=== PATIENT | female | born 1940 | race African-American/Black ===

== ENCOUNTER 2016-08-27 13:00 | Inpatient (IN) | payer MEDICARE, OTHER ==
[~2016-08-27] VITALS: Ht 157.5 cm; Wt 98.9 kg
[~2016-08-27 13:00] MED LIST: ADVAIR 100/501 PUFF1 INH; ALBUTEROL2.5 MG/3 M INH; COZAAR50 MG ORAL; DILTIAZEM ER180 M2 PO; HYDROCODON-ACE1 EA13 ORAL; HYDROCODON-ACE1 EA18 PO; LEVAQUIN500 MG ORAL; NITROSTAT0.4 M1 SL; NORCO 10-325 T1 EACH ORAL; OXYCODON-ACETA1 EAC2 ORAL; PREDNISONE20 MG ORAL; PRILOSEC20 MG ORAL; RESTORIL30 MG ORAL; SPIRIVA INHALE1 PUF1 INH; TENORMIN50 MG ORAL; XARELTO10 MG ORAL
[2016-08-27] MEDS ORDERED: Levalbuterol Inh UD 1.25mg/0.5ml ONE (13:06)
[2016-08-27] MEDS ORDERED: Solu-MEDROL 125mg Inj IVP ONE (13:15)
[2016-08-27] MEDS ORDERED: Levalbuterol Inh UD 1.25mg/0.5ml HHN ONE (13:15)
[2016-08-27] MEDS ORDERED: Tubing IV Secondary IV ONE (13:20)
[2016-08-27 13:31] VITALS: BP 166/71
--- NOTE | 2016-08-27 13:31 | Emergency Room Report ---
History of Present Illness General Chief Complaint: Dyspnea/Respdistress Source: Patient, Medical Record Present Illness HPI Patient presents with complaints of shortness of breath Upon arrival the patient is dyspneic can only speak in 2-3 word sentences Denies any chest pain she has however had increased cough and congestion Denies any abdominal pain Patient has been using cough syrup and inhaler at home with minimal relief Denies any fevers Denies any pleurisy Denies any recent travel Allergies: Coded Allergies: AMOXICILLIN (Verified Allergy, Mild, 03/04/13) PENICILLINS (Verified Allergy, Mild, Hives, 10/01/15) Patient History Past Medical History: see triage record Pertinent Family History: none Reviewed Nursing Documentation: PMH: Agreed, PSxH: Agreed Nursing Documentation-PMH Past Medical History: No History, Except For Hx Cardiac Problems: Yes Hx Hypertension: Yes Hx Asthma: Yes Hx COPD: Yes Hx Diabetes: Yes - [place]line Hx Cancer: No Hx Gastrointestinal Problems: No Hx Neurological Problems: No Hx Dizziness: Yes Review of Systems All Other Systems: negative except mentioned in HPI Physical Exam Vital Signs Date Time Temp Pulse Resp B/P Pulse Ox O2 Delivery O2 Flow Rate FiO2 08/27/16 13:01 98.4 113 20 166/61 100 Room Air Sp02 EP Interpretation: reviewed, normal General Appearance: moderate distress - Appears tachypneic and short of breath Head: normocephalic, atraumatic Eyes: bilateral eye EOMI, bilateral eye PERRL ENT: normal pharynx, no angioedema Neck: supple Respiratory: respiratory distress, accessory muscle use, wheezing - diffusely Cardiovascular #1: tachycardia Gastrointestinal: soft, no mass Genitourinary: no CVA tenderness Musculoskeletal: normal inspection Neurologic: alert, oriented x3 Skin: normal color, no rash Lymphatic: no adenopathy Procedures Critical Care Time Critical Care Time 50 minutes for initial critical presentation Multiple re\re evaluations Not including any procedural time Medical Decision Making Diagnostic Impression: Primary Impression: Dyspnea Additional Impression: Respiratory distress ER Course Patient is a fairly complex patient with multiple differential to consideration including but not limited to cardiac cardiopulmonary and vascular emergencies Patient required acute intervention with breathing treatment Steroids given her presentation was also given magnesium Chest x-ray does not show acute disease Patient has done significantly better with acute intervention However requiring admission for further inpatient care Labs Test 08/27/16 13:15 08/27/16 22:30 08/28/16 05:45 White Blood Count 5.7 K/UL (4.8-10.8) 3.8 K/UL (4.8-10.8) Red Blood Count 3.47 M/UL (4.20-5.40) 3.57 M/UL (4.20-5.40) Hemoglobin 10.5 G/DL (12.0-16.0) 11.1 G/DL (12.0-16.0) Hematocrit 30.8 % (37.0-47.0) 32.8 % (37.0-47.0) Mean Corpuscular Volume 89 FL (80-99) 92 FL (80-99) Mean Corpuscular Hemoglobin 30.2 PG (27.0-31.0) 31.2 PG (27.0-31.0) Mean Corpuscular Hemoglobin Concent 34.1 G/DL (32.0-36.0) 33.9 G/DL (32.0-36.0) Red Cell Distribution Width 13.6 % (11.6-14.8) 13.5 % (11.6-14.8) Platelet Count 225 K/UL (150-450) 209 K/UL (150-450) Mean Platelet Volume 10.8 FL (6.5-10.1) 9.9 FL (6.5-10.1) Neutrophils (%) (Auto) 58.1 % (45.0-75.0) % (45.0-75.0) Lymphocytes (%) (Auto) 22.3 % (20.0-45.0) % (20.0-45.0) Monocytes (%) (Auto) 9.1 % (1.0-10.0) % (1.0-10.0) Eosinophils (%) (Auto) 9.7 % (0.0-3.0) % (0.0-3.0) Basophils (%) (Auto) 0.9 % (0.0-2.0) % (0.0-2.0) Sodium Level 138 mEQ/L (135-145) Potassium Level 2.9 mEQ/L (3.4-4.9) Chloride Level 94 mEQ/L (98-107) Carbon Dioxide Level 25 mEQ/L (20-30) Anion Gap 19 (5-15) Blood Urea Nitrogen 13 mg/dL (7-23) Creatinine 1.0 mg/dL (0.5-0.9) Estimat Glomerular Filtration Rate mL/min (>60) Glucose Level 106 mg/dL (74-106) Calcium Level 8.9 mg/dL (8.6-10.2) Total Bilirubin 0.3 mg/dL (0.0-1.2) Aspartate Amino Transf (AST/SGOT) 19 U/L (5-40) Alanine Aminotransferase (ALT/SGPT) 9 U/L (3-33) Alkaline Phosphatase 66 U/L (35-104) Total Creatine Kinase 78 U/L (26-140) Creatine Kinase MB < 1.5 ng/mL (< 3.8) Creatine Kinase MB Relative Index Troponin I < 0.30 ng/mL (<=0.30) Total Protein 7.9 g/dL (6.6-8.7) Albumin 4.1 g/dL (3.5-5.2) Globulin 3.8 g/dL Albumin/Globulin Ratio 1.0 (1.0-2.7) Lipase 36 U/L (< 60) Differential Total Cells Counted 100 Neutrophils % (Manual) 80 % (45-75) Lymphocytes % (Manual) 12 % (20-45) Monocytes % (Manual) 1 % (1-10) Eosinophils % (Manual) 0 % (0-3) Basophils % (Manual) 0 % (0-2) Band Neutrophils 7 % (0-8) Platelet Estimate Adequate Platelet Morphology Normal Poikilocytosis 1+ Anisocytosis 4+ Ovalocytes 4+ Activated Partial Thromboplast Time 27 SEC (23-33) Rhythm Strip Diag. Results EP Interpretation: yes Rate: 77 Rhythm: NSR, no PVC's, no ectopy Chest X-Ray Diagnostic Results EP Interpretation: Yes Findings: no consolidation, no effusion, no pneumothorax Number of Views: 1 Last Vital Signs Date Time Temp Pulse Resp B/P Pulse Ox O2 Delivery O2 Flow Rate FiO2 08/27/16 13:10 102 18 Room Air 08/27/16 13:10 100 08/27/16 13:01 98.4 166/61 Status: improved Disposition: ADMITTED INPATIENT Condition: Serious Referrals: ROBBIN PUTNAM (PCP) ELIZABETH BYRNE D.O. Aug 27, 2016 13:31
[2016-08-27 13:35] VITALS: BP 166/71
[2016-08-27 13:57] LABS: BASOPHILS % (AUTO) 0.9 % (0.0-2.0); EOSINOPHILS % (AUTO) 9.7 % (0.0-3.0); LYMPHOCYTES % (AUTO) 22.3 % (20.0-45.0); MEAN CORPUSCULAR HEMOGLOBIN 30.2 PG (27.0-31.0); MEAN CORPUSCULAR HGB CONC 34.1 G/DL (32.0-36.0); MEAN CORPUSCULAR VOLUME 89 FL (80-99); MEAN PLATELET VOLUME 10.8 FL (6.5-10.1); MONOCYTES % (AUTO) 9.1 % (1.0-10.0); NEUTROPHILS % (AUTO) 58.1 % (45.0-75.0); PLATELET COUNT 225 K/UL (150-450); RED BLOOD COUNT 3.47 M/UL (4.20-5.40); RED CELL DISTRIBUTION WIDTH 13.6 % (11.6-14.8); WHITE BLOOD COUNT 5.7 K/UL (4.8-10.8)
[2016-08-27] MEDS ORDERED: Albuterol ud Inhalation HHN ONE (14:00)
[2016-08-27 14:06] LABS: ALANINE AMINOTRANSFERASE 9 U/L (3-33); ANION GAP 19 (5-15); ASPARTATE AMINO TRANSFERASE 19 U/L (5-40); CALCIUM 8.9 mg/dL (8.6-10.2); CARBON DIOXIDE 25 mEQ/L (20-30); CHLORIDE 94 mEQ/L (98-107); HEMOLYSIS 8; LIPASE 36 U/L (< 60); POTASSIUM 2.9 mEQ/L (3.4-4.9); SODIUM 138 mEQ/L (135-145); TOTAL PROTEIN 7.9 g/dL (6.6-8.7); TROPONIN I < 0.30 ng/mL (<=0.30)
--- NOTE | 2016-08-27 14:08 | Diagnostic Imaging Report ---
Indication: SOB Technique: One view of the chest Comparison: 11/11/2015 Findings: Lungs and pleural spaces are clear. Heart size is upper limits normal. Aorta is tortuous and calcified. There is no significant interim change Impression: No acute process
[2016-08-27 14:16] LABS: CKMB < 1.5 ng/mL (< 3.8)
[2016-08-27] MEDS ORDERED: Morphine Sulfate 4mg/ml Inj IVP ONE (14:30)
[2016-08-27] MEDS ORDERED: Nitroglycerin Subl 0.4mg tab (Bottle Of 25) SL PRN (14:45)
[2016-08-27] MEDS ORDERED: Norco 10mg/325mg tab ORAL PRN ×2 (14:45)
[2016-08-27] MEDS ORDERED: DuoNeb 0.5-3(2.5)mg/3ml neb HHN PRN (15:00)
[2016-08-27 16:00] VITALS: BP 131/65
[2016-08-27] MEDS: NovoLOG Insulin Flexpen SUBQ SCH ×2 (17:30→21:37)
[2016-08-27] MEDS: Levofloxacin 500mg tab ORAL SCH (18:21)
[2016-08-27] MEDS: Advair 100/50 Inhaler - 14 dose INH SCH (18:42)
[2016-08-27 20:00] VITALS: BP 155/67
[2016-08-27] MEDS ORDERED: Heparin 5000 units/ml inj SUBQ SCH (21:00)
--- NOTE | 2016-08-27 21:00 | Consultation ---
DATE OF CONSULTATION: CONSULTING PHYSICIAN: Marcelo Vaughan M.D. REFERRING PHYSICIAN: Amadeo Castle M.D. REASON FOR CONSULTATION: Respiratory insufficiency and shortness of breath. HISTORY OF PRESENT ILLNESS: This is a 76-year-old female who presents with dyspnea and respiratory distress. The patient is noted to have worsening shortness of breath, only able to speak two to three-word sentences. The patient denies any chest pain at this time, but has increasing cough and congestion. She denies any abdominal pain and has been using cough syrup and inhalers. The patient is seen and evaluated in the emergency room and was noted to have x-ray findings consistent with normal lungs. The patient admitted for respiratory insufficiency and acute bronchospasm, and I was called to assist and evaluate today. The patient has no fevers or chills. No pleurisy. No recent travel. No ill contracts. PAST MEDICAL HISTORY: Notable for history of heart disease, hypertension, history of asthma and COPD, and history of diabetes. MEDICATIONS: Reviewed. ALLERGIES: Reviewed. SOCIAL HISTORY: Currently does not smoke or drink. REVIEW OF SYSTEMS: All 10 points reviewed and otherwise negative. PHYSICAL EXAMINATION: GENERAL: The patient is a well-developed female, short of breath. VITAL SIGNS: Reviewed. Blood pressure 117/67, pulse of 105, respiratory rate 20, saturations 98%, and temperature 97.5. HEENT: Currently negative. Oropharynx moist. NECK: Supple. No adenopathy. LUNGS: With scattered wheezes. Scattered rhonchi. Reduced air entry. CARDIOVASCULAR: S1 and S2. Regular rate and rhythm without murmurs, rubs, or gallops. ABDOMEN: Soft and nontender. No distention. No hepatosplenomegaly. EXTREMITIES: No cyanosis or clubbing. No edema. NEUROLOGICAL: Grossly nonfocal. LABORATORY DATA: Lab data reviewed. White cell count 5.7, hemoglobin 10.5, hematocrit 30.8, and platelets of 225,000. Chemistry - sodium 128, potassium 2.9, BUN 13, creatinine 1. Liver enzymes normal. Chest x-ray negative. IMPRESSION: 1. Asthma/chronic obstructive pulmonary disease with acute exacerbation. 2. Shortness of breath. 3. Respiratory distress. 4. Acute bronchospasm. 5. Possibly mild acute bronchitis. 6. Chronic pain syndrome. 7. History of heart disease. RECOMMENDATION: Management as outlined. Cardiac management as outlined. Albuterol as needed. Levaquin empirically. IV Solu-Medrol, and follow clinically for further changes and interventions and ongoing recommendation. The patient appears to be slightly improved overall from baseline and I will follow and assist with discharge needs. Marcelo Vaughan M.D. DR: MY JOB#: [id number] CC:
[2016-08-27 21:20] VITALS: BP 124/67
[2016-08-27] MEDS: Solu-MEDROL 125mg Inj IVP SCH (21:38)
[2016-08-27] MEDS ORDERED: Heparin 5000 units/ml inj IV ONE ×2 (22:00→23:45)
[2016-08-27 23:00] LABS: MEAN CORPUSCULAR HEMOGLOBIN 31.2 PG (27.0-31.0); MEAN CORPUSCULAR HGB CONC 33.9 G/DL (32.0-36.0); MEAN CORPUSCULAR VOLUME 92 FL (80-99); MEAN PLATELET VOLUME 9.9 FL (6.5-10.1); PLATELET COUNT 209 K/UL (150-450); RED BLOOD COUNT 3.57 M/UL (4.20-5.40); RED CELL DISTRIBUTION WIDTH 13.5 % (11.6-14.8); WHITE BLOOD COUNT 3.8 K/UL (4.8-10.8)
--- NOTE | 2016-08-27 23:15 | History and Physical Report ---
DATE OF ADMISSION: 08/27/2016 CHIEF COMPLAINT: Asthma exacerbation. HISTORY OF PRESENT ILLNESS: The patient is a very pleasant 76-year-old female. She has history of hypertension, history of DVT, degenerative disk disease status post knee replacement, chronic lower back pain. She presented from home with complaints of shortness of breath. The patient recently had worsening congestion and "flu-like" symptoms. Yesterday she was ordered oral antibiotics as well as cough medication but she had worsening shortness of breath she presented to the emergency room where she was noted to have diffuse wheezing and shortness of breath. She was given a dose of intravenous steroids as well as antibiotics and breathing treatments. She had only minimal improvement therefore she is admitted for further evaluation and care. PAST MEDICAL HISTORY: As above. PAST SURGICAL HISTORY: Includes knee replacement surgery. CURRENT MEDICATIONS: Reconciled and reviewed. ALLERGIES: Include amoxicillin and penicillin. FAMILY HISTORY: Noncontributory. SOCIAL HISTORY: There is no known history of tobacco, ethanol, or drugs. REVIEW OF SYSTEMS: General: Positive fevers, chills, and night sweats. HEENT: No headaches or visual changes. Cardiopulmonary: Positive for chest pain or shortness of breath and tightness. Positive wheezing. Gastrointestinal: No nausea, vomiting. Genitourinary: No urgency or frequency. Musculoskeletal: No joint pain or swelling. Neurologic: No evidence of seizures. PHYSICAL EXAMINATION: VITAL SIGNS: Temperature 98 degrees, pulse 101, respirations 20, O2 saturation 96% on two liters nasal cannula. GENERAL: The patient is well-developed female in no apparent distress. She is able to speak in full sentences but is dyspneic and audibly wheezing. NECK: Supple. There is no jugular venous distention. HEART: Regular rate and rhythm. LUNGS: Significant for diffuse wheezes. ABDOMEN: Soft, nontender, and nondistended. EXTREMITIES: No clubbing, cyanosis, or edema. LABORATORY AND DIAGNOSTIC DATA: White count 6, hemoglobin 10, hematocrit 30, platelets of 225,000. Potassium is 2.9, and creatinine was 1. Chest x-ray was clear. ASSESSMENT: This is a pleasant female admitted with an asthma exacerbation. 1. Asthma exacerbation. 2. Bronchitis. 3. Hypertension. 4. Obesity. 5. History of knee replacement. PLAN: IV steroids. Respiratory treatments around the clock. Cardiology and Pulmonary consultations. Empiric antibiotic therapy for bronchitis. DVT and stress ulcer prophylaxis. Amadeo Castle M.D. DR: Jimenez JOB#: [id number] CC:
[2016-08-27] MEDS ORDERED: Heparin 25,000u/D5W 500ml 500 ML IV SCH (23:45)
[2016-08-28] VITALS (7 sets, daily range): BP systolic 135–174; BP diastolic 65–101
[2016-08-28 00:15] LABS: BAND NEUTROPHILS % (MANUAL) 7 % (0-8); BASOPHILS % (MANUAL) 0 % (0-2); EOSINOPHILS % (MANUAL) 0 % (0-3); LYMPHOCYTES % (MANUAL) 12 % (20-45); NEUTROPHILS % (MANUAL) 80 % (45-75); PLATELET ESTIMATE ADEQUATE; TOTAL CELLS COUNTED 100
[2016-08-28 00:16] LABS: ANISOCYTOSIS 4+; OVALOCYTES 4+; PLATELET MORPHOLOGY NORMAL; POIKILOCYTOSIS 1+
[2016-08-28] MEDS: Solu-MEDROL 125mg Inj IVP SCH ×3 (06:20→21:09)
[2016-08-28] MEDS: NovoLOG Insulin Flexpen SUBQ SCH ×4 (06:28→21:14)
--- NOTE | 2016-08-28 06:53 | General Progress Note ---
Assessment/Plan Problem List: (1) Shortness of breath ICD Codes: R06.02 - Shortness of breath SNOMED: 425831136 (2) Wheezing ICD Codes: R06.2 - Wheezing SNOMED: 61108138 (3) Acute bronchitis ICD Codes: J20.9 - Acute bronchitis SNOMED: 07859926 (4) Obesity ICD Codes: E66.9 - Obesity SNOMED: 646465045 (5) Chest pain (6) Hypertension ICD Codes: I10 - Essential (primary) hypertension SNOMED: 82490638 Status: stable, progressing Assessment/Plan cont resp rx atc iv steroids abx pain rx bp rx heparin drip rate control with cardizem Subjective ROS Limited/Unobtainable: No Constitutional: Reports: malaise, weakness HEENT: Reports: no symptoms Cardiovascular: Reports: no symptoms Respiratory: Reports: cough, shortness of breath, wheezing Gastrointestinal/Abdominal: Reports: no symptoms Genitourinary: Reports: no symptoms Neurologic/Psychiatric: Reports: no symptoms Endocrine: Reports: no symptoms Hematologic/Lymphatic: Reports: no symptoms Allergies: Coded Allergies: AMOXICILLIN (Verified Allergy, Mild, 03/04/13) PENICILLINS (Verified Allergy, Mild, Hives, 10/01/15) All Systems: reviewed and negative except above Subjective wheezing worse this am. no chest pain c/o back pain. Objective Last 24 Hour Vital Signs Date Time Temp Pulse Resp B/P Pulse Ox O2 Delivery O2 Flow Rate FiO2 08/28/16 06:22 137/83 08/28/16 04:00 93 08/28/16 04:00 97.5 80 17 174/101 98 Nasal Cannula 2.0 08/28/16 00:11 102 20 99 Nasal Cannula 2.0 28 08/28/16 00:03 109 20 98 Nasal Cannula 2.0 28 08/28/16 00:00 97.7 101 17 156/90 98 Nasal Cannula 2.0 08/28/16 00:00 92 08/27/16 21:20 117 124/67 08/27/16 20:00 97.0 118 21 155/67 99 Room Air 08/27/16 20:00 123 08/27/16 18:42 102 18 97 Nasal Cannula 2.0 28 08/27/16 18:41 102 18 97 Nasal Cannula 2.0 28 08/27/16 18:40 Nasal Cannula 2.0 28 08/27/16 18:40 97 Nasal Cannula 2.0 28 08/27/16 16:00 97.9 101 20 131/65 96 Room Air 08/27/16 15:15 98 20 Room Air 08/27/16 15:12 105 20 117/67 98 Room Air 08/27/16 15:05 106 24 Room Air 08/27/16 14:30 Room Air 08/27/16 14:16 101 20 100 Room Air 08/27/16 14:05 100 18 100 Room Air 08/27/16 13:35 100 24 Simple Mask 8.0 08/27/16 13:35 97.5 100 24 166/71 100 Simple Mask 8.0 08/27/16 13:25 94 20 100 Room Air 08/27/16 13:20 99 26 Room Air 99 08/27/16 13:10 102 18 Room Air 08/27/16 13:10 102 18 100 Room Air 08/27/16 13:01 98.4 113 20 166/61 100 Room Air Intake and Output 08/27/16 08/28/16 19:00 07:00 Intake Total 540 ml 283.292 ml Balance 540 ml 283.292 ml Intake Oral 440 ml 120 ml IV Total 100 ml 163.292 ml # Voids 1 1 Laboratory Tests 08/27/16 13:15: White Blood Count 5.7, Red Blood Count 3.47L, Hemoglobin 10.5L, Hematocrit 30.8L , Mean Corpuscular Volume 89, Mean Corpuscular Hemoglobin 30.2, Mean Corpuscular Hemoglobin Concent 34.1, Red Cell Distribution Width 13.6, Platelet Count 225, Mean Platelet Volume 10.8H, Neutrophils (%) (Auto) 58.1, Lymphocytes (%) (Auto) 22.3, Monocytes (%) (Auto) 9.1, Eosinophils (%) (Auto) 9.7H, Basophils (%) (Auto) 0.9, Sodium Level 138, Potassium Level 2.9L, Chloride Level 94L, Carbon Dioxide Level 25, Anion Gap 19H, Blood Urea Nitrogen 13, Creatinine 1.0H, Estimat Glomerular Filtration Rate , Glucose Level 106, Calcium Level 8.9, Total Bilirubin 0.3, Aspartate Amino Transf (AST/SGOT) 19, Alanine Aminotransferase (ALT/SGPT) 9, Alkaline Phosphatase 66, Total Creatine Kinase 78, Creatine Kinase MB < 1.5, Creatine Kinase MB Relative Index , Troponin I < 0.30, Total Protein 7.9, Albumin 4.1, Globulin 3.8, Albumin/ Globulin Ratio 1.0, Lipase 36 08/27/16 22:30: White Blood Count 3.8L, Red Blood Count 3.57L, Hemoglobin 11.1L, Hematocrit 32.8L, Mean Corpuscular Volume 92, Mean Corpuscular Hemoglobin 31.2H, Mean Corpuscular Hemoglobin Concent 33.9, Red Cell Distribution Width 13.5, Platelet Count 209, Mean Platelet Volume 9.9, Neutrophils (%) (Auto) , Lymphocytes (%) ( Auto) , Monocytes (%) (Auto) , Eosinophils (%) (Auto) , Basophils (%) (Auto) , Differential Total Cells Counted 100, Neutrophils % (Manual) 80H, Lymphocytes % (Manual) 12L, Monocytes % (Manual) 1, Eosinophils % (Manual) 0, Basophils % ( Manual) 0, Band Neutrophils 7, Platelet Estimate Adequate, Platelet Morphology Normal, Poikilocytosis 1+, Anisocytosis 4+, Ovalocytes 4+, Activated Partial Thromboplast Time 27 08/28/16 05:45: Activated Partial Thromboplast Time [Pending] Height (Feet): 5 Height (Inches): 2.00 Weight (Pounds): 250 General Appearance: WD/WN, alert Neck: supple Cardiovascular: normal rate, regular rhythm Respiratory/Chest: rhonchi - bilaterally, expiratory wheezing Abdomen: normal bowel sounds, non tender, soft, no organomegaly Edema: no edema noted Arm (L), no edema noted Arm (R), no edema noted Leg (L), no edema noted Leg (R), no edema noted Pedal (L), no edema noted Pedal (R), no edema noted Generalized Neurologic: carbonizer II-XII grossly normal, alert, oriented x 3, responsive CAROLYN FOY Aug 28, 2016 06:53
[2016-08-28] MEDS: DuoNeb 0.5-3(2.5)mg/3ml neb HHN SCH ×5 (08:13→23:14)
[2016-08-28] MEDS: Diltiazem CD 120mg cap ORAL SCH (08:16)
[2016-08-28] MEDS: Advair 100/50 Inhaler - 14 dose INH SCH ×2 (08:43→19:23)
--- NOTE | 2016-08-28 08:54 | Pulmonology Progress Note ---
Assessment/Plan Assessment/Plan IMPRESSION: 1. Asthma/chronic obstructive pulmonary disease with acute exacerbation. 2. Shortness of breath. 3. Respiratory distress. 4. Acute bronchospasm. 5. Possibly mild acute bronchitis. 6. Chronic pain syndrome. 7. History of heart disease. PLAN continue same taper meds in am neb therapy oxygen therapy monitor for change antibiotics empiric impression, plan, and exam edited and reviewed in detail care discussed with RN Subjective Allergies: Coded Allergies: AMOXICILLIN (Verified Allergy, Mild, 03/04/13) PENICILLINS (Verified Allergy, Mild, Hives, 10/01/15) Subjective overnight events noted on oxygen improved Objective Last 24 Hour Vital Signs Date Time Temp Pulse Resp B/P Pulse Ox O2 Delivery O2 Flow Rate FiO2 08/28/16 08:42 94 20 100 Nasal Cannula 2.0 08/28/16 08:40 94 20 100 Nasal Cannula 2.0 08/28/16 08:16 81 149/86 08/28/16 08:00 97.5 81 19 149/86 98 Nasal Cannula 2.0 08/28/16 06:48 100 Nasal Cannula 2.0 08/28/16 06:48 Nasal Cannula 2.0 08/28/16 06:00 137/83 08/28/16 04:00 93 08/28/16 04:00 97.5 80 17 174/101 98 Nasal Cannula 2.0 08/28/16 00:11 102 20 99 Nasal Cannula 2.0 28 08/28/16 00:03 109 20 98 Nasal Cannula 2.0 28 08/28/16 00:00 97.7 101 17 156/90 98 Nasal Cannula 2.0 08/28/16 00:00 92 08/27/16 21:20 117 124/67 08/27/16 20:00 97.0 118 21 155/67 99 Room Air 08/27/16 20:00 123 08/27/16 18:42 102 18 97 Nasal Cannula 2.0 28 08/27/16 18:41 102 18 97 Nasal Cannula 2.0 28 08/27/16 18:40 Nasal Cannula 2.0 28 08/27/16 18:40 97 Nasal Cannula 2.0 28 08/27/16 16:00 97.9 101 20 131/65 96 Room Air 08/27/16 15:15 98 20 Room Air 08/27/16 15:12 105 20 117/67 98 Room Air 08/27/16 15:05 106 24 Room Air 08/27/16 14:30 Room Air 08/27/16 14:16 101 20 100 Room Air 08/27/16 14:05 100 18 100 Room Air 08/27/16 13:35 100 24 Simple Mask 8.0 08/27/16 13:35 97.5 100 24 166/71 100 Simple Mask 8.0 08/27/16 13:25 94 20 100 Room Air 08/27/16 13:20 99 26 Room Air 99 08/27/16 13:10 102 18 Room Air 08/27/16 13:10 102 18 100 Room Air 08/27/16 13:01 98.4 113 20 166/61 100 Room Air Intake and Output 08/27/16 08/28/16 19:00 07:00 Intake Total 540 ml 405.761 ml Balance 540 ml 405.761 ml Intake Oral 440 ml 120 ml IV Total 100 ml 285.761 ml # Voids 1 1 Objective GENERAL: The patient is a well-developed female, NAD. HEENT: Currently negative. Oropharynx moist. NECK: Supple. No adenopathy. LUNGS: With some wheezes. Scattered rhonchi. Reduced air entry. CARDIOVASCULAR: S1 and S2. Regular rate and rhythm without murmurs, rubs, or gallops. ABDOMEN: Soft and nontender. No distention. No hepatosplenomegaly. EXTREMITIES: No cyanosis or clubbing. No edema. NEUROLOGICAL: Grossly nonfocal. Laboratory Tests 08/27/16 13:15: White Blood Count 5.7, Red Blood Count 3.47L, Hemoglobin 10.5L, Hematocrit 30.8L , Mean Corpuscular Volume 89, Mean Corpuscular Hemoglobin 30.2, Mean Corpuscular Hemoglobin Concent 34.1, Red Cell Distribution Width 13.6, Platelet Count 225, Mean Platelet Volume 10.8H, Neutrophils (%) (Auto) 58.1, Lymphocytes (%) (Auto) 22.3, Monocytes (%) (Auto) 9.1, Eosinophils (%) (Auto) 9.7H, Basophils (%) (Auto) 0.9, Sodium Level 138, Potassium Level 2.9L, Chloride Level 94L, Carbon Dioxide Level 25, Anion Gap 19H, Blood Urea Nitrogen 13, Creatinine 1.0H, Estimat Glomerular Filtration Rate , Glucose Level 106, Calcium Level 8.9, Total Bilirubin 0.3, Aspartate Amino Transf (AST/SGOT) 19, Alanine Aminotransferase (ALT/SGPT) 9, Alkaline Phosphatase 66, Total Creatine Kinase 78, Creatine Kinase MB < 1.5, Creatine Kinase MB Relative Index , Troponin I < 0.30, Total Protein 7.9, Albumin 4.1, Globulin 3.8, Albumin/ Globulin Ratio 1.0, Lipase 36 08/27/16 22:30: White Blood Count 3.8L, Red Blood Count 3.57L, Hemoglobin 11.1L, Hematocrit 32.8L, Mean Corpuscular Volume 92, Mean Corpuscular Hemoglobin 31.2H, Mean Corpuscular Hemoglobin Concent 33.9, Red Cell Distribution Width 13.5, Platelet Count 209, Mean Platelet Volume 9.9, Neutrophils (%) (Auto) , Lymphocytes (%) ( Auto) , Monocytes (%) (Auto) , Eosinophils (%) (Auto) , Basophils (%) (Auto) , Differential Total Cells Counted 100, Neutrophils % (Manual) 80H, Lymphocytes % (Manual) 12L, Monocytes % (Manual) 1, Eosinophils % (Manual) 0, Basophils % ( Manual) 0, Band Neutrophils 7, Platelet Estimate Adequate, Platelet Morphology Normal, Poikilocytosis 1+, Anisocytosis 4+, Ovalocytes 4+, Activated Partial Thromboplast Time 27 Current Medications Medications (Trade) Dose Ordered Sig/Arnoldo Route PRN Reason Start Time Stop Time Status Last Admin Dose Admin Acetaminophen/ Hydrocodone Bitart ([place] 10/325) 1 ea Q8H PRN ORAL For Pain Level <=5 08/27/16 14:45 09/03/16 14:44 Albuterol/ Ipratropium (DuoNeb 0.5-3(2.5)mg/3ml) 3 ml Q4HRT HHN 08/28/16 07:00 09/02/16 06:59 Clonidine HCl (Catapres) 0.1 mg Q4H PRN ORAL For High Blood Pressure 08/28/16 05:45 09/27/16 05:44 Dextrose STAT PRN IV Hypoglycemia 08/27/16 16:30 09/26/16 16:29 Diltiazem HCl (Cardizem CD) 120 mg DAILY ORAL 08/28/16 09:00 09/27/16 08:59 08/28/16 08:16 Heparin Sodium/ Dextrose (Heparin) 500 ml @ 40.823 mls/ hr adjust per protocol IV 08/27/16 23:45 09/26/16 23:44 08/27/16 23:49 Insulin Aspart (NovoLOG) BEFORE MEALS AND HS SUBQ 08/27/16 17:30 09/26/16 17:29 08/28/16 06:28 Levofloxacin (Levaquin) 500 mg Q24H ORAL 08/27/16 18:00 09/03/16 17:59 08/27/16 18:21 Methylprednisolone Sodium Succinate (Solu-MEDROL) 60 mg EVERY 12 HOURS IVP 08/28/16 18:00 09/27/16 17:59 Nitroglycerin (Ntg) 0.4 mg Q5M PRN SL Prn Chest Pain 08/27/16 14:45 09/26/16 14:44 Oxycodone/ Acetaminophen (Percocet 10/325) 1 tab Q4H PRN ORAL Severe Pain (Pain Scale 6-10) 08/27/16 14:45 09/03/16 14:44 08/28/16 05:36 Pantoprazole (Protonix) 40 mg DAILY ORAL 08/28/16 09:00 09/27/16 08:59 08/28/16 08:15 Salmeterol Xinafoate/ Fluticasone (Advair 100/50 Diskus) 1 puffs BID INH 08/27/16 18:00 09/26/16 17:59 08/28/16 08:43 Temazepam (Restoril) 30 mg HSPRN PRN ORAL Insomnia 08/27/16 14:45 09/03/16 14:44 Tiotropium [place] (Spiriva Inhaler) 1 puff DAILY INH 08/27/16 18:00 09/26/16 17:59 08/28/16 08:45 WALDEMAR SERRANO Aug 28, 2016 08:54
[2016-08-28] MEDS ORDERED: Heparin 25,000u/D5W 500ml 500 ML IV SCH (11:15)
[2016-08-28] MEDS ORDERED: HEPARIN IV SCH (17:30)
[2016-08-28] MEDS ORDERED: D5W IV SCH (17:30)
[2016-08-28] MEDS: Levofloxacin 500mg tab ORAL SCH (18:00)
[2016-08-29] VITALS (7 sets, daily range): BP systolic 131–150; BP diastolic 69–90
[2016-08-29] MEDS: D5W IV SCH ×2 (01:41→06:58)
[2016-08-29] MEDS: HEPARIN IV SCH ×2 (01:41→06:58)
[2016-08-29] MEDS: DuoNeb 0.5-3(2.5)mg/3ml neb HHN SCH ×7 (03:09→23:10)
[2016-08-29] MEDS: NovoLOG Insulin Flexpen SUBQ SCH ×4 (06:19→20:42)
--- NOTE | 2016-08-29 08:04 | General Progress Note ---
Assessment/Plan Problem List: (1) Shortness of breath ICD Codes: R06.02 - Shortness of breath SNOMED: 026005787 (2) Wheezing ICD Codes: R06.2 - Wheezing SNOMED: 80035328 (3) Acute bronchitis ICD Codes: J20.9 - Acute bronchitis SNOMED: 07157740 (4) Obesity ICD Codes: E66.9 - Obesity SNOMED: 309937005 (5) Chest pain (6) Hypertension ICD Codes: I10 - Essential (primary) hypertension SNOMED: 39733745 Status: stable, progressing Assessment/Plan cont resp rx atc iv steroids daily abx pain rx bp rx heparin drip- dc. xarelto 20 qd rate control with cardizem Subjective ROS Limited/Unobtainable: No Constitutional: Reports: weakness HEENT: Reports: no symptoms Cardiovascular: Reports: no symptoms Respiratory: Reports: cough, shortness of breath Gastrointestinal/Abdominal: Reports: no symptoms Genitourinary: Reports: no symptoms Neurologic/Psychiatric: Reports: no symptoms Endocrine: Reports: no symptoms Hematologic/Lymphatic: Reports: no symptoms Allergies: Coded Allergies: AMOXICILLIN (Verified Allergy, Mild, 03/04/13) PENICILLINS (Verified Allergy, Mild, Hives, 10/01/15) All Systems: reviewed and negative except above Subjective decrease wheezing. still with sob. no chest pain no fevers or chills. no headaches. c/o chronic knee and back pain sinus for more than 24 hrs Objective Last 24 Hour Vital Signs Date Time Temp Pulse Resp B/P Pulse Ox O2 Delivery O2 Flow Rate FiO2 08/29/16 07:49 97.2 101 18 150/72 100 Nasal Cannula 2.0 08/29/16 04:00 103 08/29/16 04:00 97.0 108 20 149/90 100 Nasal Cannula 2.0 08/29/16 03:21 95 18 99 Nasal Cannula 2.0 28 08/29/16 03:10 85 18 99 Nasal Cannula 2.0 28 08/29/16 00:28 97.3 100 24 131/71 98 Room Air 08/29/16 00:00 100 08/28/16 23:23 93 20 99 Nasal Cannula 2.0 28 08/28/16 23:15 91 20 100 Nasal Cannula 2.0 28 08/28/16 20:00 97.5 95 20 135/65 99 Room Air 08/28/16 19:32 92 20 99 Nasal Cannula 2.0 28 08/28/16 19:26 91 20 100 Nasal Cannula 2.0 28 08/28/16 19:25 91 20 100 Nasal Cannula 2.0 28 08/28/16 19:24 91 20 100 Nasal Cannula 2.0 28 08/28/16 19:23 100 Nasal Cannula 2.0 28 08/28/16 19:23 Nasal Cannula 2.0 28 08/28/16 19:10 90 08/28/16 16:00 98.1 107 18 141/83 99 Nasal Cannula 2.0 08/28/16 16:00 119 08/28/16 15:24 93 18 99 Nasal Cannula 2.0 08/28/16 15:17 87 16 99 Nasal Cannula 2.0 08/28/16 12:00 104 08/28/16 11:59 98.1 98 19 143/73 99 Nasal Cannula 2.0 08/28/16 10:26 99 20 100 Nasal Cannula 2.0 08/28/16 10:16 97 20 97 Nasal Cannula 2.0 08/28/16 08:42 94 20 100 Nasal Cannula 2.0 08/28/16 08:40 94 20 100 Nasal Cannula 2.0 08/28/16 08:16 81 149/86 Intake and Output 08/28/16 08/29/16 19:00 07:00 Intake Total 1036.727 ml 280.959 ml Balance 1036.727 ml 280.959 ml Intake Oral 680 ml IV Total 356.727 ml 280.959 ml # Voids 1 Laboratory Tests 08/28/16 09:00: Activated Partial Thromboplast Time 131H 08/28/16 16:30: Activated Partial Thromboplast Time 99H 08/29/16 00:30: Activated Partial Thromboplast Time 107H 08/29/16 07:30: Activated Partial Thromboplast Time [Pending] Height (Feet): 5 Height (Inches): 2.00 Weight (Pounds): 218 General Appearance: WD/WN, alert Neck: supple Cardiovascular: regular rhythm Respiratory/Chest: expiratory wheezing Abdomen: normal bowel sounds, non tender, soft, no organomegaly Edema: no edema noted Arm (L), no edema noted Arm (R), no edema noted Leg (L), no edema noted Leg (R), no edema noted Pedal (L), no edema noted Pedal (R), no edema noted Generalized Neurologic: wheel aligner II-XII grossly normal, no motor/sensory deficits, alert, oriented x 3 Skin: normal pigmentation CAROLYN FOY Aug 29, 2016 08:04
[2016-08-29] MEDS ORDERED: Xarelto 10mg tab ORAL SCH ×2 (09:00→16:30)
[2016-08-29] MEDS: Advair 100/50 Inhaler - 14 dose INH SCH ×2 (09:17→19:00)
[2016-08-29] MEDS: Solu-MEDROL 125mg Inj IVP SCH (09:28)
[2016-08-29] MEDS: Diltiazem CD 120mg cap ORAL SCH (09:31)
[2016-08-29] MEDS: guaiFENesin w/Codeine 5ml Liq ud ORAL PRN ×2 (09:48→21:48)
--- NOTE | 2016-08-29 10:12 | Pulmonology Progress Note ---
Assessment/Plan Assessment/Plan IMPRESSION: 1. Asthma/chronic obstructive pulmonary disease with acute exacerbation. 2. Shortness of breath. 3. Respiratory distress. 4. Acute bronchospasm. 5. Possibly mild acute bronchitis. 6. Chronic pain syndrome. 7. History of heart disease. PLAN continue same taper meds neb therapy oxygen therapy monitor for change antibiotics empiric for now impression, plan, and exam edited and reviewed in detail care discussed with RN Subjective Allergies: Coded Allergies: AMOXICILLIN (Verified Allergy, Mild, 03/04/13) PENICILLINS (Verified Allergy, Mild, Hives, 10/01/15) Subjective overnight events noted on oxygen and stable improved Objective Last 24 Hour Vital Signs Date Time Temp Pulse Resp B/P Pulse Ox O2 Delivery O2 Flow Rate FiO2 08/29/16 09:31 104 150/72 08/29/16 07:49 97.2 101 18 150/72 100 Nasal Cannula 2.0 08/29/16 07:05 102 18 100 Nasal Cannula 2.0 28 08/29/16 07:05 100 20 100 Nasal Cannula 2.0 28 08/29/16 07:00 100 18 100 Nasal Cannula 2.0 28 08/29/16 07:00 100 Nasal Cannula 2.0 28 08/29/16 07:00 101 18 99 Nasal Cannula 2.0 28 08/29/16 07:00 Nasal Cannula 2.0 28 08/29/16 04:00 103 08/29/16 04:00 97.0 108 20 149/90 100 Nasal Cannula 2.0 08/29/16 03:21 95 18 99 Nasal Cannula 2.0 08/29/16 03:10 85 18 99 Nasal Cannula 2.0 08/29/16 00:28 97.3 100 24 131/71 98 Room Air 08/29/16 00:00 100 08/28/16 23:23 93 20 99 Nasal Cannula 2.0 28 08/28/16 23:15 91 20 100 Nasal Cannula 2.0 28 08/28/16 20:00 97.5 95 20 135/65 99 Room Air 08/28/16 19:32 92 20 99 Nasal Cannula 2.0 28 08/28/16 19:26 91 20 100 Nasal Cannula 2.0 28 08/28/16 19:25 91 20 100 Nasal Cannula 2.0 28 08/28/16 19:24 91 20 100 Nasal Cannula 2.0 28 08/28/16 19:23 100 Nasal Cannula 2.0 28 08/28/16 19:23 Nasal Cannula 2.0 28 08/28/16 19:10 90 08/28/16 16:00 98.1 107 18 141/83 99 Nasal Cannula 2.0 08/28/16 16:00 119 08/28/16 15:24 93 18 99 Nasal Cannula 2.0 08/28/16 15:17 87 16 99 Nasal Cannula 2.0 28 08/28/16 12:00 104 08/28/16 11:59 98.1 98 19 143/73 99 Nasal Cannula 2.0 08/28/16 10:26 99 20 100 Nasal Cannula 2.0 08/28/16 10:16 97 20 97 Nasal Cannula 2.0 Intake and Output 08/28/16 08/29/16 19:00 07:00 Intake Total 1036.727 ml 280.959 ml Balance 1036.727 ml 280.959 ml Intake Oral 680 ml IV Total 356.727 ml 280.959 ml # Voids 1 Objective GENERAL: The patient is a well-developed female, NAD. HEENT: Currently negative. Oropharynx moist. NECK: Supple. No adenopathy. LUNGS: With some wheezes. some rhonchi. Reduced air entry. CARDIOVASCULAR: S1 and S2. Regular rate and rhythm without murmurs, rubs, or gallops. ABDOMEN: Soft and nontender. No distention. No hepatosplenomegaly. EXTREMITIES: No cyanosis or clubbing. No edema. NEUROLOGICAL: Grossly nonfocal. Microbiology Date/Time Source Procedure Growth Status 08/27/16 13:45 Blood Blood Culture - Preliminary NO GROWTH AFTER 24 HOURS Resulted 08/27/16 13:30 Blood Blood Culture - Preliminary NO GROWTH AFTER 24 HOURS Resulted Laboratory Tests 08/28/16 16:30: Activated Partial Thromboplast Time 99H 08/29/16 00:30: Activated Partial Thromboplast Time 107H 08/29/16 07:30: Activated Partial Thromboplast Time 70H 08/29/16 09:15: Sodium Level [Pending], Potassium Level [Pending], Chloride Level [Pending], Carbon Dioxide Level [Pending], Blood Urea Nitrogen [Pending], Creatinine [ Pending], Estimat Glomerular Filtration Rate [Pending], Glucose Level [Pending] , Calcium Level [Pending] Current Medications Medications (Trade) Dose Ordered Sig/Arnoldo Route PRN Reason Start Time Stop Time Status Last Admin Dose Admin Acetaminophen/ Hydrocodone Bitart ([place] 10/325) 1 ea Q8H PRN ORAL For Pain Level <=5 08/27/16 14:45 09/03/16 14:44 Albuterol/ Ipratropium (DuoNeb 0.5-3(2.5)mg/3ml) 3 ml Q4HRT HHN 08/28/16 07:00 09/02/16 06:59 08/29/16 07:04 Clonidine HCl (Catapres) 0.1 mg Q4H PRN ORAL For High Blood Pressure 08/28/16 05:45 09/27/16 05:44 Dextrose (Dextrose 50%) STAT PRN IV Hypoglycemia 08/27/16 16:30 09/26/16 16:29 Diltiazem HCl (Cardizem CD) 120 mg DAILY ORAL 08/28/16 09:00 09/27/16 08:59 08/29/16 09:31 Guaifenesin/ Codeine Phosphate (Robitussin with codeine) 5 ml Q6H PRN ORAL For Cough 08/29/16 08:00 09/28/16 07:59 08/29/16 09:48 Insulin Aspart (NovoLOG) BEFORE MEALS AND HS SUBQ 08/27/16 17:30 09/26/16 17:29 08/29/16 06:19 Levofloxacin (Levaquin) 500 mg Q24H ORAL 08/27/16 18:00 09/03/16 17:59 08/28/16 18:00 Methylprednisolone Sodium Succinate (Solu-MEDROL) 60 mg DAILY IVP 08/29/16 09:00 09/28/16 08:59 08/29/16 09:28 Nitroglycerin (Ntg) 0.4 mg Q5M PRN SL Prn Chest Pain 08/27/16 14:45 09/26/16 14:44 Oxycodone/ Acetaminophen (Percocet 10/325) 1 tab Q4H PRN ORAL Severe Pain (Pain Scale 6-10) 08/27/16 14:45 09/03/16 14:44 08/28/16 16:28 Pantoprazole (Protonix) 40 mg DAILY ORAL 08/28/16 09:00 09/27/16 08:59 08/29/16 09:26 Rivaroxaban (Xarelto) 15 mg QPM ORAL 08/29/16 16:30 09/28/16 16:29 Salmeterol Xinafoate/ Fluticasone (Advair 100/50 Diskus) 1 puffs BID INH 08/27/16 18:00 09/26/16 17:59 08/29/16 09:17 Temazepam (Restoril) 30 mg HSPRN PRN ORAL Insomnia 08/27/16 14:45 09/03/16 14:44 Tiotropium [place] (Spiriva Inhaler) 1 puff DAILY INH 08/27/16 18:00 09/26/16 17:59 08/29/16 09:18 WALDEMAR SERRANO Aug 29, 2016 10:12
[2016-08-29 10:24] LABS: ANION GAP 23 (5-15); CALCIUM 9.3 mg/dL (8.6-10.2); CARBON DIOXIDE 19 mEQ/L (20-30); CHLORIDE 91 mEQ/L (98-107); HEMOLYSIS 17; POTASSIUM 3.6 mEQ/L (3.4-4.9); SODIUM 133 mEQ/L (135-145)
[2016-08-29] MEDS ORDERED: Xarelto 15mg tab ORAL SCH (16:30)
[2016-08-29] MEDS: Levofloxacin 500mg tab ORAL SCH (17:58)
[2016-08-30] VITALS: BP 148/78
--- NOTE | 2016-08-30 01:10 | Cardiology Report ---
APPROVED REPORT EKG Measurement Heart [id number] AR [id number] [id number] Sinus rhythm with premature atrial complexes Left axis deviation Abnormal ECG
[2016-08-30 02:06] VITALS: BP 148/78
[2016-08-30] MEDS: DuoNeb 0.5-3(2.5)mg/3ml neb HHN SCH ×2 (03:10→07:48)
[2016-08-30 04:00] VITALS: BP 144/88
[2016-08-30] MEDS: NovoLOG Insulin Flexpen SUBQ SCH (06:29)
[2016-08-30 08:10] VITALS: BP 152/90
[2016-08-30] MEDS: guaiFENesin w/Codeine 5ml Liq ud ORAL PRN (08:37)
[2016-08-30 08:38] VITALS: BP 152/90
[2016-08-30] MEDS: Diltiazem CD 120mg cap ORAL SCH (08:38)
[2016-08-30] MEDS: Solu-MEDROL 125mg Inj IVP SCH (08:38)
--- NOTE | 2016-08-30 08:52 | Pulmonology Progress Note ---
Assessment/Plan Assessment/Plan IMPRESSION: 1. Asthma/chronic obstructive pulmonary disease with acute exacerbation. 2. Shortness of breath. 3. Respiratory distress. 4. Acute bronchospasm. 5. Possibly mild acute bronchitis. 6. Chronic pain syndrome. 7. History of heart disease. PLAN dc solumedrol po prednisone neb therapy oxygen therapy monitor for change antibiotics likely can dc dc planning impression, plan, and exam edited and reviewed in detail care discussed with RN Subjective Allergies: Coded Allergies: AMOXICILLIN (Verified Allergy, Mild, 03/04/13) PENICILLINS (Verified Allergy, Mild, Hives, 10/01/15) Subjective overnight events noted on oxygen and stable improved and wants to go home Objective Last 24 Hour Vital Signs Date Time Temp Pulse Resp B/P Pulse Ox O2 Delivery O2 Flow Rate FiO2 08/30/16 08:38 77 152/90 08/30/16 08:10 97.3 77 22 152/90 100 Nasal Cannula 4.0 08/30/16 07:53 90 20 99 Nasal Cannula 3.0 32 08/30/16 07:50 32 08/30/16 07:49 85 20 97 Nasal Cannula 3.0 32 08/30/16 07:49 Nasal Cannula 3.0 32 08/30/16 07:48 97 Nasal Cannula 3.0 32 08/30/16 04:00 82 08/30/16 04:00 97.6 95 18 144/88 99 Nasal Cannula 3.0 32 08/30/16 03:15 85 18 99 Nasal Cannula 3.0 32 08/30/16 03:11 81 18 99 Nasal Cannula 3.0 32 08/30/16 03:11 32 08/30/16 02:06 97.6 93 15 148/78 98 Nasal Cannula 4.0 32 08/30/16 00:00 97.6 96 15 148/78 98 Nasal Cannula 4.0 08/30/16 00:00 96 08/29/16 23:32 95 18 99 Nasal Cannula 3.0 32 08/29/16 23:20 85 18 99 Nasal Cannula 3.0 32 08/29/16 23:20 32 08/29/16 22:00 98.4 98 19 141/76 Room Air 08/29/16 20:00 113 08/29/16 20:00 98.4 98 18 141/76 98 Nasal Cannula 4.0 08/29/16 19:11 Room Air 08/29/16 19:10 Room Air 08/29/16 19:05 Room Air 08/29/16 19:05 Room Air 08/29/16 19:05 Room Air 08/29/16 19:04 98 Room Air 08/29/16 16:32 98 20 100 Nasal Cannula 3.0 32 08/29/16 16:31 28 08/29/16 16:31 100 20 100 Nasal Cannula 3.0 32 08/29/16 15:45 96 08/29/16 15:22 97.5 96 18 134/69 100 Nasal Cannula 4.0 08/29/16 12:13 106 08/29/16 11:53 123 08/29/16 11:52 130 08/29/16 11:35 97.7 103 18 139/71 100 Nasal Cannula 4.0 08/29/16 11:05 100 20 100 Nasal Cannula 2.0 28 08/29/16 11:00 98 22 99 Nasal Cannula 2.0 28 08/29/16 09:31 104 150/72 Intake and Output 08/29/16 08/30/16 19:00 07:00 Intake Total 711.188 ml 200 ml Balance 711.188 ml 200 ml Intake Oral 690 ml 200 ml IV Total 21.188 ml # Voids 2 2 Objective GENERAL: The patient is a well-developed female, NAD. HEENT: Currently negative. Oropharynx moist. NECK: Supple. No adenopathy. LUNGS: With reduced wheezes. no rhonchi. Reduced air entry. CARDIOVASCULAR: S1 and S2. Regular rate and rhythm without murmurs, rubs, or gallops. ABDOMEN: Soft and nontender. No distention. No hepatosplenomegaly. EXTREMITIES: No cyanosis or clubbing. No edema. NEUROLOGICAL: Grossly nonfocal. Microbiology Date/Time Source Procedure Growth Status 08/27/16 13:45 Blood Blood Culture - Preliminary NO GROWTH AFTER 48 HOURS Resulted 08/27/16 13:30 Blood Blood Culture - Preliminary NO GROWTH AFTER 48 HOURS Resulted Laboratory Tests 08/29/16 09:15: Sodium Level 133L, Potassium Level 3.6, Chloride Level 91L, Carbon Dioxide Level 19L, Anion Gap 23H, Blood Urea Nitrogen 25H, Creatinine 1.0H, Estimat Glomerular Filtration Rate , Glucose Level 284H, Calcium Level 9.3 Current Medications Medications (Trade) Dose Ordered Sig/Arnoldo Route PRN Reason Start Time Stop Time Status Last Admin Dose Admin Acetaminophen/ Hydrocodone Bitart ([place] 10/325) 1 ea Q8H PRN ORAL For Pain Level <=5 08/27/16 14:45 09/03/16 14:44 Albuterol/ Ipratropium (DuoNeb 0.5-3(2.5)mg/3ml) 3 ml Q4HRT HHN 08/28/16 07:00 09/02/16 06:59 08/30/16 07:48 Clonidine HCl (Catapres) 0.1 mg Q4H PRN ORAL For High Blood Pressure 08/28/16 05:45 09/27/16 05:44 Dextrose (Dextrose 50%) STAT PRN IV Hypoglycemia 08/27/16 16:30 09/26/16 16:29 Diltiazem HCl (Cardizem CD) 120 mg DAILY ORAL 08/28/16 09:00 09/27/16 08:59 08/30/16 08:38 Guaifenesin/ Codeine Phosphate (Robitussin with codeine) 5 ml Q6H PRN ORAL For Cough 08/29/16 08:00 09/28/16 07:59 08/30/16 08:37 Insulin Aspart (NovoLOG) BEFORE MEALS AND HS SUBQ 08/27/16 17:30 09/26/16 17:29 08/30/16 06:29 Levofloxacin (Levaquin) 500 mg Q24H ORAL 08/27/16 18:00 09/03/16 17:59 08/29/16 17:58 Methylprednisolone Sodium Succinate (Solu-MEDROL) 60 mg DAILY IVP 08/29/16 09:00 09/28/16 08:59 08/30/16 08:38 Nitroglycerin (Ntg) 0.4 mg Q5M PRN SL Prn Chest Pain 08/27/16 14:45 09/26/16 14:44 Oxycodone/ Acetaminophen (Percocet 10/325) 1 tab Q4H PRN ORAL Severe Pain (Pain Scale 6-10) 08/27/16 14:45 09/03/16 14:44 08/30/16 00:43 Pantoprazole (Protonix) 40 mg DAILY ORAL 08/28/16 09:00 09/27/16 08:59 08/30/16 08:38 Rivaroxaban (Xarelto) 15 mg QPM ORAL 08/29/16 16:30 09/28/16 16:29 08/29/16 16:41 Salmeterol Xinafoate/ Fluticasone (Advair 100/50 Diskus) 1 puffs BID INH 08/27/16 18:00 09/26/16 17:59 08/29/16 09:17 Temazepam (Restoril) 30 mg HSPRN PRN ORAL Insomnia 08/27/16 14:45 09/03/16 14:44 Tiotropium [place] (Spiriva Inhaler) 1 puff DAILY INH 08/27/16 18:00 09/26/16 17:59 08/29/16 09:18 WALDEMAR SERRANO Aug 30, 2016 08:52
--- NOTE | 2016-08-30 11:45 | Progress Note ---
DATE: 08/27/2016 CARDIOLOGY PROGRESS NOTE SUBJECTIVE: The patient maintaining sinus rhythm, frequent atrial ectopics and sinus arrhythmias noted. No chest pain. Shortness of breath has improved. OBJECTIVE: VITAL SIGNS: Blood pressure 150/72, pulse 101, respirations 18, afebrile, and oxygen saturation 100% on 2 liters nasal cannula. NECK: Supple. LUNGS: With few expiratory wheezes and rhonchi. CARDIAC: Regular rhythm. Rapid rate. Normal S1 and S2 with a fourth heart sound. ABDOMEN: Soft. EXTREMITIES: No edema. IMPRESSION: 1. Acute bronchitis. 2. Paroxysmal bronchospasm. 3. Asthma exacerbation. 4. Hypertensive heart disease. 5. Paroxysmal atrial fibrillation. 6. Paroxysmal atrial ectopy. 7. Degenerative disc disease. 8. Chronic pain syndrome. PLAN: 1. Cardioembolic prophylaxis with rivaroxaban, diltiazem for arrhythmia suppression. 2. Taper steroids and bronchodilators. 3. Titrate antihypertensive, expect improvement in blood pressure parameters off steroids. Dov Ferris M.D. DR: Dianna JOB#: [id number] CC:
--- NOTE | 2016-08-31 00:30 | Progress Note ---
DATE: 08/30/2016 CARDIOLOGY PROGRESS NOTE SUBJECTIVE: The patient is less congested. She is not short of breath. She still has some cough. Monitor sinus with rare PACs. OBJECTIVE: VITAL SIGNS: Blood pressure 152/90, pulse 77, respiratory rate 22, and afebrile. LUNGS: Coarse breath sounds. No wheezing. HEART: Regular rhythm and rate. Normal S1 and S2. Occasional ectopic beats. ABDOMEN: Soft. EXTREMITIES: No pitting edema. IMPRESSION: 1. Acute bronchitis, resolved. 2. Hypokalemia, corrected. 3. Paroxysmal bronchospasm, improved. 4. Hypertensive heart disease with improved blood pressure range and expect improvement further off steroids. 5. Paroxysmal atrial ectopy. 6. Paroxysmal atrial fibrillation. 7. Chronic diastolic congestive heart failure. PLAN: 1. Rivaroxaban for cardioembolic prophylaxis. 2. Bronchodilators. 3. Steroid taper. 4. Monitor volume status and cardiorenal parameters. 5. Outpatient followup. Dov Ferris M.D. DR: CARLOS A JOB#: [id number] CC:
--- NOTE | 2016-08-31 01:30 | Progress Note ---
DATE: 08/28/2016 CARDIOLOGY PROGRESS NOTE SUBJECTIVE: The patient was seen and evaluated. Case was discussed with Dr. Castle. The patient is feeling worse. Today, she has wheezing and more short of breath. She has back pain and she feels it is due to her coughing. OBJECTIVE: VITAL SIGNS: Blood pressure 174/101 earlier now 137/83, heart rate 80 to 109, and respiratory rate 17 to 20. She is afebrile. The patient is saturating 98% on 2 liters nasal cannula. NECK: No accessory muscle use. LUNGS: With bilateral expiratory wheezes and rhonchi. HEART: Regular rhythm and rate. Normal S1 and S2 with a fourth heart sound and frequent ectopic beats. Monitored rhythm is sinus with sinus arrhythmia and episodes of atrial fibrillation. ABDOMEN: Soft. EXTREMITIES: With trace edema. IMPRESSION: 1. Acute bronchospasm. 2. Asthma exacerbation. 3. Acute bronchitis. 4. Paroxysmal atrial fibrillation. 5. Accelerated hypertension. 6. Paroxysmal atrial ectopy. 7. Degenerative disk disease with acute and chronic pain. PLAN: 1. Intravenous steroids and inhaled bronchodilators. 2. Intravenous heparin. 3. Start Cardizem for rate control and arrhythmia suppression. 4. Expect improvement in atrial arrhythmias with improved respiratory parameters and decreased PA systolic pressures. 5. Monitor volume status and cardiorenal parameters. 6. Continue cardiac monitoring. Dov Ferris M.D. DR: CARLOS A JOB#: [id number] CC:
--- NOTE | 2016-08-31 01:45 | Consultation ---
DATE OF CONSULTATION: 08/30/2016 CARDIOLOGY CONSULTATION REQUESTING PHYSICIAN: Amadeo Castle M.D. REASON FOR CONSULTATION: Tachyarrhythmia in the setting and acute shortness of breath. HISTORY OF PRESENT ILLNESS: This is a 76-year-old female, who has a longstanding history of hypertension with hypertensive heart disease and diastolic dysfunction. She has had increasing congestion and shortness of breath with some flu-like symptoms. She has been on oral antibiotics, but has not improved. In the emergency room, she was noted to have significant shortness of breath and wheezing. Hospitalization was initiated. The patient is on chronic anticoagulation for DVT and has a history of atrial ectopy. PAST MEDICAL HISTORY: Degenerative disk disease, osteoarthritis, status post left total knee replacement, hypertension with hypertensive heart disease, diastolic dysfunction with history of congestive heart failure, history of DVT, paroxysmal atrial ectopy, chronic back pain, bronchospastic lung disease and obesity. ALLERGIES: Include penicillin. MEDICATIONS: Prior to admission, reviewed and reconciled. SOCIAL HISTORY: Negative for smoking, alcohol, or substance abuse. FAMILY HISTORY: Noncontributory. REVIEW OF SYSTEMS: She has had some fevers and chills with night sweats. There is no history of visual disturbance. She is somewhat hard of hearing. She has no chest pain with cough. She has chest tightness. She has been wheezing. She has some sputum production that is clear. She has not had any change in bowel habits. She does have a history of glucose intolerance. No thyroid disorder. There is no history of seizures or stroke. There is no history of kidney disorder. She denies frequency or dysuria. She had an outpatient echocardiogram about a year ago that revealed normal ejection fraction, concentric hypertrophy, and a diastolic relaxation abnormality with no significant valve disease. There is no history of flow-limiting coronary disease. She has had negative myocardial perfusion scans over the past year. PHYSICAL EXAMINATION: Afebrile. Blood pressure 166/61, pulse 113, and respirations 20. HEENT: Conjunctivae are pink. Oropharynx is clear. NECK: Supple. Some accessory muscle use. LUNGS: Diminished breath sounds. Expiratory wheezes and rhonchi. CARDIAC: Regular rhythm. Rapid rate. Normal S1 and S2 with a fourth heart sound. Occasional ectopic beats. ABDOMEN: Soft and nontender. EXTREMITIES: Good pulses with trace dependent edema. Moderate obesity. Degenerative changes of the large joints noted. IMAGING STUDIES: Chest x-ray with no acute process. EKG sinus rhythm with PACs and leftward axis. LABORATORY DATA: Reviewed. IMPRESSION: 1. Acute bronchospasm. 2. Acute bronchitis. 3. Paroxysmal atrial ectopy. 4. History of deep vein thrombosis. 5. Rivaroxaban associated coagulopathy. 6. Obesity. 7. Asthma exacerbation. PLAN: 1. Intravenous steroids. 2. Inhaled bronchodilators. 3. Cardiac monitoring. 4. Add Cardizem if sustained atrial arrhythmias are noted. 5. Continue full anticoagulation. 6. Monitor volume status and cardiorenal parameters especially while on steroids. 7. Consider glucose monitoring as well. Dov Ferris M.D. DR: CARLOS A JOB#: [id number] CC:
--- NOTE | 2016-08-31 02:15 | Discharge Summary ---
DATE OF ADMISSION: 08/27/2016 DATE OF DISCHARGE: 08/30/2016 ADMISSION DIAGNOSIS: Asthma exacerbation. DISCHARGE DIAGNOSIS: Asthma exacerbation. HISTORY OF PRESENT ILLNESS: The patient is a very pleasant female with a history of hypertension, paroxysmal atrial fibrillation, hypertensive heart disease and DVT. She was admitted with shortness of breath secondary to asthma exacerbation. She received IV steroids, respiratory treatments [id number] and oral antibiotics. She received cough suppressant. She improved. HOSPITAL COURSE: Complicated by intermittent episodes of atrial fibrillation. On discharge, she was in sinus. She will be discharged home on a steroid taper as well as Xarelto for stroke prophylaxis for atrial fibrillation. DISCHARGE MEDICATIONS: Please see discharge medication list for discharge medications. DIET: Cardiac diet. ACTIVITY: Ad-nathan. FOLLOWUP: The patient will follow up in one week in the office. Amadeo Castle M.D. DR: LARS JOB#: [id number] CC:
[2016-08-31] MEDS ORDERED: PredniSONE 20mg tab ORAL SCH (09:00)
== END 2016-08-30 10:19 | disposition home or self-care (01) | DRG 202 ==
LOC: EMR 13:14 → 2E 13:23 → EDBEDREQ 13:45 → 2E 15:45
DX: J45.901 Unspecified asthma with (acute) exacerbation (principal); I50.32 Chronic diastolic (congestive) heart failure; I48.0 Paroxysmal atrial fibrillation; I11.0 Hypertensive heart disease with heart failure; Z68.41 Body mass index [BMI] 40.0-44.9, adult; Z86.718 Personal history of other venous thrombosis and embolism; E66.9 Obesity, unspecified; J20.9 Acute bronchitis, unspecified; I48.91 Unspecified atrial fibrillation; E11.9 Type 2 diabetes mellitus without complications; G89.4 Chronic pain syndrome; Z96.652 Presence of left artificial knee joint; M19.90 Unspecified osteoarthritis, unspecified site; Z88.0 Allergy status to penicillin; Z79.01 Long term (current) use of anticoagulants; I49.1 Atrial premature depolarization; M51.36 Other intervertebral disc degeneration, lumbar region; Z88.1 Allergy status to other antibiotic agents
CPT/HCPCS: 36415; 71010; 80048; 80053; 82550; 82553; 82962; 83690; 84484; 85007; 85025; 85730; 87040; 93005; 94640; 94664; 94760; J1815; J7620; J8499

== ENCOUNTER 2017-04-19 04:28 | Inpatient (IN) | payer MEDICARE, OTHER ==
[~2017-04-19] VITALS: Ht 157.5 cm; Wt 95.3 kg
[2017-04-19] VITALS (7 sets, daily range): BP systolic 126–166; BP diastolic 79–99
[2017-04-19] MEDS ORDERED: Sodium Chloride 500ML 500 ML IV ONE (04:55)
[2017-04-19] MEDS ORDERED: Albuterol ud Inhalation HHN ONE ×2 (05:00→06:30)
[2017-04-19] MEDS ORDERED: Ipratropium 0.02% Inh Soln 2.5ml UD HHN ONE (05:00)
--- NOTE | 2017-04-19 05:01 | Emergency Room Report ---
History of Present Illness General Chief Complaint: Chest Pain Source: Patient Present Illness HPI This is a 76-year-old female with a history of atrial fibrillation, currently on Xarelto she also has a history of asthma. She presents with chief complaint of chest pain his been ongoing for last 3 days. She's been having of cough and shortness of breath. No fever or chills. No nausea no vomiting. Worse with lying flat. Worse with exertion. No diaphoresis. Described pain as pressure- like across her chest. Coughing is nonproductive in nature. Allergies: Coded Allergies: AMOXICILLIN (Verified Allergy, Mild, 03/04/13) PENICILLINS (Verified Allergy, Mild, Hives, 10/01/15) Patient History Past Medical History: see triage record, old chart reviewed, HTN, AFib, asthma Past Surgical History: other Pertinent Family History: none Social History: Denies: smoking Last Menstrual Period: NA Now: No Immunizations: other Reviewed Nursing Documentation: PMH: Agreed, PSxH: Agreed Nursing Documentation-PMH Hx Cardiac Problems: Yes Hx Hypertension: Yes Hx Asthma: Yes Hx COPD: Yes Hx Diabetes: Yes - borderline Hx Cancer: No Hx Gastrointestinal Problems: No Hx Neurological Problems: No Hx Dizziness: Yes Review of Systems Eye: Denies: eye pain, blurred vision ENT: Denies: ear pain, nose congestion, throat swelling Respiratory: Reports: cough, shortness of breath Cardiovascular: Reports: chest pain, Denies: palpitations Gastrointestinal: Denies: abdominal pain, diarrhea, nausea, vomiting Musculoskeletal: Denies: back pain, joint pain Skin: Denies: rash Neurological: Denies: headache, numbness Endocrine: Denies: increased thirst, increased urine Hematologic/Lymphatic: Denies: easy bruising All Other Systems: negative except mentioned in HPI Physical Exam Vital Signs Date Time Temp Pulse Resp B/P (MAP) Pulse Ox O2 Delivery O2 Flow Rate FiO2 04/19/17 04:40 100.6 113 18 131/110 96 Room Air vitals with low-grade fever and tachycardia Sp02 EP Interpretation: reviewed, normal General Appearance: well appearing, no apparent distress, alert Head: normocephalic, atraumatic Eyes: bilateral eye PERRL, bilateral eye EOMI ENT: hearing grossly normal, normal pharynx Neck: full range of motion, supple, no meningismus Respiratory: chest non-tender, decreased breath sounds, wheezing - Expiratory Cardiovascular #1: regular rate, rhythm, no murmur, tachycardia Gastrointestinal: normal bowel sounds, non tender, no mass, no organomegaly, no bruit, non-distended Musculoskeletal: back normal, gait/station normal, normal range of motion Psychiatric: mood/affect normal Skin: warm/dry Medical Decision Making Diagnostic Impression: Primary Impression: Asthma with exacerbation Qualified Codes: J45.21 - Mild intermittent asthma with (acute) exacerbation Additional Impressions: Viral upper respiratory infection Hypokalemia ER Course Patient presents with a viral illness mild asthma exacerbation. No evidence of pneumonia, ACS, PE, dissection to name a few. Wheezing resolved after breathing treatment. She felt better now. She has not been using an inhaler the last 2 days. We'll discharge home. Lab Results Impression labs with hypokalemia EKG Diagnostic Results Rate: tachycardiac Rhythm: NSR ST Segments: other - Nonspecific ST changes Rhythm Strip Diag. Results Rhythm Strip Time: 05:01 EP Interpretation: yes Rate: 103 Rhythm: NSR, no PVC's, no ectopy Last Vital Signs Date Time Temp Pulse Resp B/P (MAP) Pulse Ox O2 Delivery O2 Flow Rate FiO2 04/19/17 04:40 100.6 113 18 131/110 96 Room Air Status: improved Disposition: HOME, SELF-CARE Condition: Stable Scripts Prednisone* (PREDNISONE*) 20 Mg Tablet 40 MG ORAL DAILY, #10 TAB Prov: SAMMY THOMAS M.D. 04/19/17 Additional Instructions: Use your inhaler more regularly. Followup with your DrJosselyn in 3-5 days if not better. Return if worse. SAMMY THOMAS M.D. Apr 19, 2017 05:01
[2017-04-19 05:12] LABS: BASOPHILS % (AUTO) 1.6 % (0.0-2.0); HEMATOCRIT 34.8 % (37.0-47.0); HEMOGLOBIN 11.3 G/DL (12.0-16.0); LYMPHOCYTES % (AUTO) 8.1 % (20.0-45.0); MEAN CORPUSCULAR VOLUME 92 FL (80-99); MONOCYTES % (AUTO) 11.5 % (1.0-10.0); NEUTROPHILS % (AUTO) 76.8 % (45.0-75.0); PLATELET COUNT 248 K/UL (150-450); RED BLOOD COUNT 3.77 M/UL (4.20-5.40); RED CELL DISTRIBUTION WIDTH 12.5 % (11.6-14.8); WHITE BLOOD COUNT 6.1 K/UL (4.8-10.8)
[2017-04-19] MEDS ORDERED: Solu-MEDROL 125mg Inj IVP ONE (05:15)
[2017-04-19 05:23] LABS: ANION GAP 10 mmol/L (5-15); BLOOD UREA NITROGEN 9 mg/dL (7-18); CALCIUM 8.9 MG/DL (8.5-10.1); CARBON DIOXIDE 27 MMOL/L (21-32); CHLORIDE 95 MMOL/L (98-107); CREATININE 1.1 MG/DL (0.55-1.30); POTASSIUM 2.9 MMOL/L (3.5-5.1); SODIUM 132 MMOL/L (136-145)
[2017-04-19 05:36] LABS: ALANINE AMINOTRANSFERASE 13 U/L (12-78); ALBUMIN 3.9 G/DL (3.4-5.0); ALBUMIN/GLOBULIN RATIO 0.9 (1.0-2.7); ALKALINE PHOSPHATASE 76 U/L (46-116); ASPARTATE AMINO TRANSFERASE 26 U/L (15-37); BILIRUBIN,TOTAL 0.7 MG/DL (0.2-1.0); CKMB < 0.5 NG/ML (0.0-3.6); CREATINE KINASE 105 U/L (26-308)
[2017-04-19] MEDS ORDERED: PREDNISONE20 MG ORAL (06:09)
[2017-04-19] MEDS ORDERED: PROMETH-CODEIN 65 ML PO (06:22)
[2017-04-19] MEDS ORDERED: DICLOFENAC SODI25 GM MC (06:22)
[2017-04-19] MEDS ORDERED: HYDROcodone/Acetamin 10/325 tab ORAL ONE (08:30)
--- NOTE | 2017-04-19 10:23 | Diagnostic Imaging Report ---
Indication: Shortness of breath Technique: XRAY Chest 1v Comparison: 08/27/2016 Findings: Limited exam with low lung volumes. Heart likely borderline enlarged. Apparent haziness of the pulmonary vascularity likely artifactually exaggerated. No definite focal consolidation. No pleural effusion. No pneumothorax. No acute osseous abnormality seen. Impression: Limited exam with low lung volumes. Heart borderline enlarged. Slight haziness of the pulmonary vascularity likely artifactually exaggerated due to low lung volumes. No definite focal consolidation.
[2017-04-19] MEDS ORDERED: HYDROcodone/Acetamin 10/325 tab ORAL PRN (13:00)
[2017-04-19] MEDS ORDERED: Promethazine/Codeine 5ml UD ORAL PRN ×2 (13:00→15:45)
[2017-04-19] MEDS: Flonase Nasal Inhaler 16gm NASAL SCH ×2 (13:30→18:08)
[2017-04-19] MEDS: Albuterol ud Inhalation HHN SCH ×2 (14:16→19:26)
[2017-04-19] MEDS ORDERED: HYDROcodone/Acetamin 10/325 tab ORAL SCH (15:45)
--- NOTE | 2017-04-19 17:30 | History and Physical Report ---
DATE OF ADMISSION: 04/19/2017 CHIEF COMPLAINT: Asthma exacerbation and bronchitis. HISTORY OF PRESENT ILLNESS: The patient is a pleasant 76-year-old female. She has a history of hypertensive heart disease, knee replacement, osteoarthritis, obesity, and borderline diabetes. She presented from home with complaints of one week progressive shortness of breath, cough, and congestion. According to the patient, she was well until a week ago. She developed wheezing, shortness of breath, cough, and congestion. She took oral antibiotics without any improvement. She took her inhalers, but continued to have wheezing and shortness of breath. Because of failed respond to outpatient therapy, she presented to the emergency room. On evaluation there, she was noted to be wheezing. Her x-ray was negative for pneumonia. She received several respiratory treatments and a dose of steroids, but continued to have shortness of breath and wheezing. She was therefore admitted for further inpatient evaluation and care. PAST MEDICAL HISTORY: As above. PAST SURGICAL HISTORY: Knee replacement. CURRENT MEDICATIONS: Reconciled and reviewed. ALLERGIES: Include amoxicillin and penicillin. SOCIAL HISTORY: Negative for tobacco, ethanol, or drugs. FAMILY HISTORY: Noncontributory. REVIEW OF SYSTEMS: GENERAL: Positive fevers, chills, and night sweats. HEENT: No headaches or visual changes. CARDIOPULMONARY: No chest pain. Positive chest tightness, shortness of breath, wheezing, and cough. GASTROINTESTINAL: No nausea or vomiting. GENITOURINARY: No urgency or frequency. MUSCULOSKELETAL: No joint pain or swelling. NEUROLOGIC: No evidence of seizures. SKIN: No history of rash. PHYSICAL EXAMINATION: VITAL SIGNS: Temperature 98, pulse was 90, blood pressure 143/95, and respirations 20. The patient is saturating 95% on room air. GENERAL APPEARANCE: The patient is a well-developed female, in no apparent distress. She is awake and alert. Pupils are equal, round, and reactive to light. Sclerae anicteric. Oropharynx clear. NECK: Supple. HEART: Regular rate and rhythm. LUNGS: Scattered wheezes and rhonchi. ABDOMEN: Soft, nontender, and nondistended. EXTREMITIES: Without clubbing, cyanosis, or edema. LABORATORY AND DIAGNOSTIC DATA: Coags are normal. White count 6, hemoglobin 11, hematocrit 34, and platelet count of 243,000. Sodium 132 and potassium is 2.9. Glucose is 180. Pro-natriuretic peptide was 294. Chest x-ray was clear. ASSESSMENT: This is a pleasant female with complaints of asthma exacerbation. 1. Asthma exacerbation. 2. Bronchitis. 3. Hyponatremia and hypokalemia. PLAN: 1. IV steroids. 2. Respiratory treatments [id number]. 3. Gentle hydration. 4. Continue outpatient cardiac regimen. Amadeo Castle M.D. DR: CEDRICK JOB#: [id number] CC:
[2017-04-19] MEDS: Solu-MEDROL 40mg Inj IVP SCH (17:51)
--- NOTE | 2017-04-19 19:45 | Consultation ---
DATE OF CONSULTATION: 04/19/2017 PULMONARY CONSULTATION CONSULTING PHYSICIAN: Marcelo Vaughan M.D. REFERRING PHYSICIAN: Amadeo Castle M.D. REASON FOR CONSULTATION: Shortness of breath, asthma/COPD with possible exacerbation. HISTORY OF PRESENT ILLNESS: This is a 76-year-old female, presented with chest pain ongoing for three days. The patient also with cough and shortness of breath. No fevers or chills. Worse in the supine position. Worse with exertion. The patient was seen and evaluated in the emergency room. Labs and x-rays were obtained. The patient noted to have profound hyponatremia, negative troponin, minimally elevated natriuretic peptide. The patient was seen and evaluated in the emergency room and orders reviewed. The patient was given Solu-Medrol as well as nebulized treatment as well as oxygen therapy, and now plans for admission. The patient's findings discussed with Dr. Castle and also with the ER physician. PAST MEDICAL HISTORY: Reviewed in detail. The patient does have history of COPD in the past, proteinuria, angina, stroke-like symptoms, hypertension, and obesity. Medications, reviewed. Allergies, reviewed. The patient's prior admission was in August of last year. History at that point was notable for hypertension, DVT, degenerative disc disease. PAST SURGICAL HISTORY: Knee replacement. MEDICATIONS: Reviewed and reconciled. ALLERGIES: Reviewed. Amoxicillin and penicillin. FAMILY HISTORY: Noncontributory. SOCIAL HISTORY: Nonsmoker and nondrinker at this time. Retired. REVIEW OF SYSTEMS: Otherwise negative with the exception of the above. PHYSICAL EXAMINATION: GENERAL: A well-developed, well-nourished female, comfortable. Minimally short of breath. NECK: Supple. No jugular venous distention. LUNGS: With scattered wheezes. Occasional rhonchi. CARDIAC: S1 and S2. Regular rhythm without murmurs, rubs, or gallops. ABDOMEN: Soft, nontender, and nondistended. EXTREMITIES: No cyanosis, clubbing, or edema. NEUROLOGIC: Grossly nonfocal. Alert and oriented without significant distress. LABORATORY DATA: Reviewed and notable for white count 6.1, hematocrit 34, and platelets 248,000. Chemistry, sodium 132 and potassium 2.9. BNP 294. BUN and creatinine within normal limits. The patient's EKG without any acute changes. Normal sinus rhythm. IMPRESSION: 1. Chronic obstructive pulmonary disease with acute exacerbation. 2. Shortness of breath. 3. Respiratory insufficiency. 4. Profound hypokalemia and hyponatremia. 5. History of angina. 6. History of proteinuria. RECOMMENDATION: Supportive care. Admit. Nebulized therapy. IV Solu-Medrol for the next 48 hours. Resume home medication. DVT prophylaxis. Monitor clinically for changes and interventions and ongoing recommendation, assist with discharge planning and monitor electrolytes for improvement. Marcelo Vaughan M.D. DR: RADHA JOB#: [id number] CC:
[2017-04-20] MEDS: Solu-MEDROL 40mg Inj IVP SCH ×2 (00:40→08:33)
[2017-04-20] MEDS: Albuterol ud Inhalation HHN SCH ×3 (01:28→13:00)
[2017-04-20 08:24] VITALS: BP 152/92
[2017-04-20] MEDS ORDERED: HYDROcodone/Acetamin 10/325 ORAL (08:29)
[2017-04-20] MEDS: Flonase Nasal Inhaler 16gm NASAL SCH (08:34)
[2017-04-20] MEDS ORDERED: Levofloxacin 500mg tab ORAL SCH (09:00)
[2017-04-20] MEDS ORDERED: dilTIAZem HCl CD 180mg cap ORAL SCH (09:00)
[2017-04-20] MEDS ORDERED: dilTIAZem HCl 90mg tab ORAL SCH (09:00)
[2017-04-20 13:44] VITALS: BP 152/74
--- NOTE | 2017-04-20 16:59 | Pulmonology Progress Note ---
Assessment/Plan Assessment/Plan IMPRESSION: 1. Chronic obstructive pulmonary disease with acute exacerbation. 2. Shortness of breath. 3. Respiratory insufficiency. 4. Profound hypokalemia and hyponatremia. 5. History of angina. 6. History of proteinuria. RECOMMENDATION: dc planning steroid taper respiratory therapy monitor for congestion care noted dispo per dr montes noted impression, plan, and exam edited and reviewed in detail care discussed with RN Subjective Allergies: Coded Allergies: AMOXICILLIN (Verified Allergy, Mild, 03/04/13) PENICILLINS (Verified Allergy, Mild, Hives, 10/01/15) Subjective seen earlier dc planning Objective Last 24 Hour Vital Signs Date Time Temp Pulse Resp B/P (MAP) Pulse Ox O2 Delivery O2 Flow Rate FiO2 04/20/17 13:54 Room Air 04/20/17 13:53 Room Air 04/20/17 13:44 98.1 20 152/74 98 Room Air 04/20/17 08:34 98 152/92 04/20/17 08:24 97.5 98 20 152/92 97 Room Air 04/20/17 07:50 92 16 99 Room Air 21 04/20/17 07:40 89 18 95 Room Air 21 04/20/17 01:36 93 18 99 Room Air 21 04/20/17 01:26 88 18 98 Room Air 21 04/20/17 01:26 21 04/19/17 20:00 98.0 96 20 158/98 96 04/19/17 20:00 Room Air 04/19/17 19:37 95 18 98 Room Air 21 04/19/17 19:26 81 18 98 Room Air 21 04/19/17 19:24 81 18 98 Room Air 21 04/19/17 19:23 81 18 98 Room Air 21 Intake and Output 04/19/17 04/20/17 19:00 07:00 Intake Total 630 ml 500 ml Balance 630 ml 500 ml Intake Oral 580 ml IV Total 50 ml 500 ml # Voids 2 3 Objective GENERAL: A well-developed, well-nourished female, comfortable. comfortable NECK: Supple. No jugular venous distention. LUNGS: With improved wheezes. Occasional rhonchi. CARDIAC: S1 and S2. Regular rhythm without murmurs, rubs, or gallops. ABDOMEN: Soft, nontender, and nondistended. EXTREMITIES: No cyanosis, clubbing, or edema. NEUROLOGIC: Grossly nonfocal. Alert and oriented without significant distress. WALDEMAR SERRANO Apr 20, 2017 16:59
--- NOTE | 2017-04-20 21:45 | Discharge Summary ---
DATE OF ADMISSION: 04/19/2017 DATE OF DISCHARGE: 04/20/2017 ADMISSION DIAGNOSES: 1. Asthma exacerbation. 2. Bronchitis. 3. Hyponatremia. DISCHARGE DIAGNOSES: 1. Asthma exacerbation. 2. Bronchitis. 3. Hyponatremia. HOSPITAL COURSE: The patient is a pleasant female, who presented with complaints of cough, congestion, and shortness of breath. She was noted to be having asthma/chronic obstructive pulmonary disease exacerbation. She was admitted. She received intravenous steroids and respiratory treatments [id number]. She was started on the antibiotic therapy. She improved rapidly with aggressive care and on discharge was stable. She will be discharged home with oral antibiotics for additional five days as well as cough medicines and a steroid taper. She will follow up in one week in the office. Please see discharge medication list for discharge medications. DIET: Cardiac diet. ACTIVITY: Ad-Belle. FOLLOWUP: The patient to follow up in one to two weeks in the office. Amadeo Castle M.D. DR: JOSÉ MANUEL JOB#: [id number] CC:
--- NOTE | 2017-04-21 04:00 | Progress Note ---
DATE: 04/20/2017 CARDIOLOGY PROGRESS NOTE SUBJECTIVE: Less congestion and shortness of breath. She is using respiratory treatments. She has no chest pain or palpitations. PHYSICAL EXAMINATION: VITAL SIGNS: Blood pressure 152/74, pulse 98, and respiratory rate 20. LUNGS: Better breath sounds. Still with rhonchi. Few wheezes. HEART: Regular rhythm and rate. Normal S1, S2 with a fourth heart sound. ABDOMEN: Soft. EXTREMITIES: No edema. IMPRESSION: 1. Asthma exacerbation with acute bronchospasm and acute respiratory insufficiency have improved. 2. Hypokalemia and hyponatremia have resolved with saline hydration and replacement of potassium with no sign of acute coronary insufficiency. 3. Hypertensive heart disease with minimally elevated blood pressure range, likely due to steroids. 4. Diastolic dysfunction with no clinical signs of acute congestive heart failure. PLAN: 1. Agree with outpatient followup. 2. Maintenance cardiovascular regimen reviewed. 3. No additional diuretics. 4. Monitor volume status closely while on steroids. Dov Ferris M.D. DR: GAMAL JOB#: [id number] CC:
--- NOTE | 2017-04-21 06:47 | Consultation ---
DATE OF CONSULTATION: 04/19/2017 CARDIOLOGY CONSULTATION CONSULTING PHYSICIAN: Dov Ferris M.D. ATTENDING/REQUESTING PHYSICIAN: Amadeo Castle M.D. REASON FOR CONSULTATION: Shortness of breath in the setting of hypertensive cardiomyopathy with diastolic dysfunction. HISTORY OF PRESENT ILLNESS: This is a 76-year-old female, who has a longstanding history of hypertensive heart disease, diastolic dysfunction, and history of labile hypertension. She has had a week of progressive cough, congestion, and shortness of breath with some leg swelling. I have been asked to address cardiovascular care. PAST MEDICAL HISTORY: Bronchospastic lung disease, osteoarthritis, obesity, type 2 diabetes mellitus diet-controlled, history of total knee replacement, hypertensive heart disease, chronic diastolic congestive heart failure, degenerative disk disease. MEDICATIONS: Medications prior to admission, reviewed and reconciled. ALLERGIES: Penicillin. SOCIAL HISTORY: Negative for smoking, alcohol, or substance abuse. FAMILY HISTORY: Noncontributory. REVIEW OF SYSTEMS: An outpatient echocardiogram revealed normal ejection fraction, concentric hypertrophy, diastolic dysfunction, no significant PA systolic pressure elevation, and minimal tricuspid and mitral insufficiency. She has had prior outpatient myocardial perfusion scan that had been negative for flow-limiting coronary artery disease. There is no history of sustained cardiac arrhythmias. There is no history of blood clots in the legs or pulmonary emboli. PHYSICAL EXAMINATION: VITAL SIGNS: Afebrile, blood pressure 143/95, heart rate 90, respiratory rate 20, oxygen saturation on room air 95%. GENERAL: Moderately obese. HEENT: Oropharynx clear with no thrush. NECK: Supple. No accessory muscle use. LUNGS: With coarse breath sounds, rhonchi, and some expiratory wheezes. CARDIAC: Regular rhythm and rate. Normal S1, S2 with a fourth heart sound. EXTREMITIES: With trace ankle edema. LABORATORY AND DIAGNOSTIC DATA: Chest x-ray, no acute process. Natriuretic peptide 294. EKG with sinus tachycardia, nonspecific ST-T wave changes. IMPRESSION: 1. Acute bronchospasm. 2. Asthma exacerbation. 3. Chronic diastolic congestive heart failure. 4. Hypertensive heart disease. 5. Secondary sinus tachycardia. 6. Type 2 diabetes mellitus. PLAN: 1. Inhaled bronchodilators. 2. Empiric antibiotics. 3. Intravenous steroids. 4. No beta-blockers. 5. Hold diuresis. 6. Maintenance hydration. 7. DVT prophylaxis. Dov Louis Ferris DR: NEFTALY JOB#: [id number] CC:
--- NOTE | 2017-04-23 11:38 | Diagnostic Imaging Report ---
APPROVED REPORT CPT Code: 50580 Present Symptoms Comments: Swelling and pain Past History DVT :Right RIGHT LEG: Venous imaging reveals recanalized chronic thrombus in the popliteal vein. The remainder of the deep venous system is within normal limits. There is no evidence of thrombus in the common femoral, superficial femoral, or calf veins. The greater saphenous vein is also within normal limits. Doppler indicates normal spontaneous flow within these segments. LEFT LEG: Venous imaging reveals a patent deep venous system. There is no evidence of thrombus within the femoral, popliteal or tibial segments. The greater saphenous vein is also within normal limits. Doppler indicates normal spontaneous flow within these segments. There is no evidence of acute deep vein thrombosis. INCIDENTAL FINDINGS: Imaging of the ( right) popliteal fossa reveals a Bakers cyst measuring approximately 1.8 x 1.1 cm.
--- NOTE | 2017-05-03 14:02 | Cardiology Report ---
APPROVED REPORT EKG Measurement Heart [id number] MI [id number] Sinus tachycardia Left axis deviation Minimal voltage criteria for LVH, may be normal variant Abnormal ECG
== END 2017-04-20 14:11 | disposition home or self-care (01) | DRG 202 ==
LOC: EMR 05:01 → EDBEDREQ 06:34 → 4W 06:48 → EDBEDREQ 10:05 → 4W 11:20
DX: J45.901 Unspecified asthma with (acute) exacerbation (principal); E87.1 Hypo-osmolality and hyponatremia; I11.0 Hypertensive heart disease with heart failure; I50.32 Chronic diastolic (congestive) heart failure; E11.9 Type 2 diabetes mellitus without complications; J44.1 Chronic obstructive pulmonary disease with (acute) exacerbation; E87.6 Hypokalemia; R00.0 Tachycardia, unspecified; E66.9 Obesity, unspecified; Z68.38 Body mass index [BMI] 38.0-38.9, adult; Z88.0 Allergy status to penicillin; Z86.718 Personal history of other venous thrombosis and embolism
CPT/HCPCS: 36415; 71045; 80053; 82550; 82553; 83880; 84484; 85025; 85610; 85730; 93005; 93970; 94640; 94664; 99285; J8499

== ENCOUNTER 2017-06-28 19:56 | Inpatient (IN) | payer MEDICARE, OTHER ==
[~2017-06-28] VITALS: Ht 157.5 cm; Wt 99.8 kg
[~2017-06-28 19:56] MED LIST changes: +DICLOFENAC SODI25 GM MC; +HYDROcodone/Acetamin 10/325 ORAL; +PROMETH-CODEIN 65 ML PO
[2017-06-28] MEDS ORDERED: UNOBMED (20:07)
[2017-06-28] MEDS ORDERED: Albuterol/Ipratropium 3ml neb HHN ONE (20:30)
[2017-06-28 20:35] VITALS: BP 186/97
[2017-06-28 21:08] LABS: EOSINOPHILS % (AUTO) 10.7 % (0.0-3.0); HEMATOCRIT 30.7 % (37.0-47.0); HEMOGLOBIN 10.2 G/DL (12.0-16.0); LYMPHOCYTES % (AUTO) 25.7 % (20.0-45.0); MEAN CORPUSCULAR VOLUME 92 FL (80-99); MONOCYTES % (AUTO) 9.4 % (1.0-10.0); NEUTROPHILS % (AUTO) 52.2 % (45.0-75.0); PLATELET COUNT 237 K/UL (150-450); RED BLOOD COUNT 3.33 M/UL (4.20-5.40); RED CELL DISTRIBUTION WIDTH 13.1 % (11.6-14.8); WHITE BLOOD COUNT 5.4 K/UL (4.8-10.8)
[2017-06-28 21:14] LABS: ANION GAP 6 mmol/L (5-15); BLOOD UREA NITROGEN 20 mg/dL (7-18); CALCIUM 8.7 MG/DL (8.5-10.1); CARBON DIOXIDE 30 MMOL/L (21-32); CHLORIDE 101 MMOL/L (98-107); CREATININE 0.9 MG/DL (0.55-1.30); POTASSIUM 3.8 MMOL/L (3.5-5.1); SODIUM 137 MMOL/L (136-145)
[2017-06-28 21:28] LABS: ALANINE AMINOTRANSFERASE 16 U/L (12-78); ALBUMIN 3.5 G/DL (3.4-5.0); ALBUMIN/GLOBULIN RATIO 0.9 (1.0-2.7); ALKALINE PHOSPHATASE 75 U/L (46-116); ASPARTATE AMINO TRANSFERASE 27 U/L (15-37); BILIRUBIN,TOTAL 0.5 MG/DL (0.2-1.0); CREATINE KINASE 117 U/L (26-308)
[2017-06-28] MEDS ORDERED: Aspirin Baby 81mg ORAL ONE (22:30)
--- NOTE | 2017-06-28 22:30 | Emergency Room Report ---
History of Present Illness General Chief Complaint: Chest Pain Source: Patient, Medical Record Present Illness HPI Patient presents with complaints of midsternal chest pain stabbing Initially rates the pain as 9 out of 10 Denies any vomiting or diarrhea Patient has cardiac disease along with Asthma and COPD She felt that there was some mild wheezing but denies any pleurisy at this time Denies any recent travel Denies any change with position or exertion Allergies: Coded Allergies: AMOXICILLIN (Verified Allergy, Mild, 03/04/13) PENICILLINS (Verified Allergy, Mild, Hives, 10/01/15) Patient History Past Medical History: see triage record Pertinent Family History: none Now: No Reviewed Nursing Documentation: PMH: Agreed; PSxH: Agreed Nursing Documentation-PMH Hx Cardiac Problems: Yes Hx Hypertension: Yes Hx Asthma: No Hx COPD: Yes Hx Diabetes: Yes - borderline Hx Cancer: No Hx Gastrointestinal Problems: No Hx Neurological Problems: No Hx Dizziness: Yes Review of Systems All Other Systems: negative except mentioned in HPI Physical Exam Vital Signs Date Time Temp Pulse Resp B/P (MAP) Pulse Ox O2 Delivery O2 Flow Rate FiO2 06/28/17 20:02 98.4 86 20 186/97 96 Room Air 98.4 06/28/17 21:17 21 Sp02 EP Interpretation: reviewed, normal General Appearance: well appearing, no apparent distress Head: normocephalic, atraumatic Eyes: bilateral eye PERRL, bilateral eye EOMI ENT: hearing grossly normal, normal pharynx, TMs + canals normal, uvula midline Neck: full range of motion, supple, no meningismus, no bony tend Respiratory: no respiratory distress, no retraction, no accessory muscle use, wheezing - Fine wheezing bilateral Cardiovascular #1: normal peripheral pulses, regular rate, rhythm, no edema, no gallop, no JVD, no murmur Gastrointestinal: normal bowel sounds, non tender, soft, no mass, no organomegaly, non-distended, no guarding, no hernia, no pulsatile mass, no rebound Genitourinary: no CVA tenderness Musculoskeletal: normal inspection Neurologic: oriented x3, responsive, product management analyst III-XII nml as tested, motor strength/ tone normal, sensory intact Psychiatric: mood/affect normal Skin: normal color, no rash, warm/dry, palpation normal Lymphatic: normal inspection, no adenopathy Medical Decision Making Diagnostic Impression: Primary Impression: ACS (acute coronary syndrome) ER Course Patient is a fairly complex patient with multiple differential to consideration including but not limited to cardiac cardiopulmonary and vascular emergencies Patient's blood work is at baseline levels Chest x-ray is appropriate Given the patient's risk factors and presentation is admitted for further inpatient care Labs Test 06/28/17 20:35 White Blood Count 5.4 K/UL (4.8-10.8) Red Blood Count 3.33 M/UL (4.20-5.40) Hemoglobin 10.2 G/DL (12.0-16.0) Hematocrit 30.7 % (37.0-47.0) Mean Corpuscular Volume 92 FL (80-99) Mean Corpuscular Hemoglobin 30.6 PG (27.0-31.0) Mean Corpuscular Hemoglobin Concent 33.2 G/DL (32.0-36.0) Red Cell Distribution Width 13.1 % (11.6-14.8) Platelet Count 237 K/UL (150-450) Mean Platelet Volume 14.9 FL (6.5-10.1) Neutrophils (%) (Auto) 52.2 % (45.0-75.0) Lymphocytes (%) (Auto) 25.7 % (20.0-45.0) Monocytes (%) (Auto) 9.4 % (1.0-10.0) Eosinophils (%) (Auto) 10.7 % (0.0-3.0) Basophils (%) (Auto) 2.0 % (0.0-2.0) Sodium Level 137 MMOL/L (136-145) Potassium Level 3.8 MMOL/L (3.5-5.1) Chloride Level 101 MMOL/L (98-107) Carbon Dioxide Level 30 MMOL/L (21-32) Anion Gap 6 mmol/L (5-15) Blood Urea Nitrogen 20 mg/dL (7-18) Creatinine 0.9 MG/DL (0.55-1.30) Estimat Glomerular Filtration Rate mL/min (>60) Glucose Level 153 MG/DL (74-106) Lactic Acid Level 1.00 mmol/L (0.66-2.22) Calcium Level 8.7 MG/DL (8.5-10.1) Total Bilirubin 0.5 MG/DL (0.2-1.0) Aspartate Amino Transf (AST/SGOT) 27 U/L (15-37) Alanine Aminotransferase (ALT/SGPT) 16 U/L (12-78) Alkaline Phosphatase 75 U/L (46-116) Total Creatine Kinase 117 U/L (26-308) Creatine Kinase MB 1.0 NG/ML (0.0-3.6) Creatine Kinase MB Relative Index 0.8 Troponin I 0.000 ng/mL (0.000-0.056) Total Protein 7.6 G/DL (6.4-8.2) Albumin 3.5 G/DL (3.4-5.0) Globulin 4.1 g/dL Albumin/Globulin Ratio 0.9 (1.0-2.7) EKG Diagnostic Results Rate: normal Rhythm: NSR ST Segments: other - Nonspecific ST and T wave changes Rhythm Strip Diag. Results EP Interpretation: yes Rate: 77 Rhythm: NSR, no PVC's, no ectopy Chest X-Ray Diagnostic Results Chest X-Ray Diagnostic Results : Chest X-Ray Ordered: Yes # of Views/Limited/Complete: 1 View Indication: Chest Pain EP Interpretation: Yes Interpretation: no consolidation, no effusion, no pneumothorax, no acute cardiopulmonary disease - Borderline cardiomegaly Impression: No acute disease Electronically Signed by: Julita Hinojosa DO Last Vital Signs Date Time Temp Pulse Resp B/P (MAP) Pulse Ox O2 Delivery O2 Flow Rate FiO2 06/28/17 21:25 75 19 100 Room Air 21 06/28/17 20:02 98.4 186/97 98.4 Status: improved Disposition: ADMITTED INPATIENT Condition: Serious Referrals: NON PHYSICIAN (PCP) Julita Hinojosa DO Jun 28, 2017 22:30
[2017-06-29] VITALS (10 sets, daily range): BP systolic 147–183; BP diastolic 69–112
[2017-06-29] MEDS ORDERED: Lexiscan 0.4mg/5ml syringe IV ONE (00:30)
[2017-06-29] MEDS ORDERED: Milk of Magnesia 30ml Ud ORAL PRN (00:30)
[2017-06-29] MEDS: Albuterol/Ipratropium 3ml neb HHN SCH ×4 (01:00→20:43)
[2017-06-29] MEDS: Norco 5mg/325mg tab ORAL PRN ×2 (02:51→13:49)
[2017-06-29] MEDS: NS w/KCl 20mEq 1,000 ML IV SCH ×2 (04:02→10:30)
--- NOTE | 2017-06-29 05:00 | History and Physical Report ---
DATE OF ADMISSION: 06/28/2017 REASON FOR ADMISSION: Chest pain. HISTORY OF PRESENT ILLNESS: This 76-year-old female with multiple risk factors for coronary artery disease, presented to the emergency room complaining of mid substernal chest pressure described as stabbing, severe at 9/10 in intensity. The symptoms were unprovoked, not associated with any specific activity, positioning and without any associated shortness of breath, nausea, or vomiting. PAST MEDICAL HISTORY: Includes hypertensive heart disease, diastolic dysfunction, history of labile blood pressure, bronchospastic lung disease, osteoarthritis, diet controlled type 2 diabetes mellitus, history of total knee replacement, and degenerative disk disease. MEDICATIONS: Prior to admission, reviewed and reconciled. ALLERGIES: Penicillin. SOCIAL HISTORY: Nonsmoker. No alcohol or substance abuse. FAMILY HISTORY: Noncontributory. REVIEW OF SYSTEMS: No loss of vision. She has frequent headaches and neck spasms due to arthritic pain. No loss of vision or hearing. No history of thyroid disorder. Diabetes is managed with diet. Cholesterol parameters not known. She has a history of Richardson cyst. There is no history of blood clots in the legs or pulmonary emboli. any change in bowel habits. There is no history of kidney disease. She denies frequency or dysuria. She has had prior myocardial perfusion scans that have shown low likelihood for flow-limiting disease. She had an echocardiogram in the last six months revealing normal ejection fraction, concentric hypertrophy, and diastolic dysfunction with no significant pulmonary hypertension. PHYSICAL EXAMINATION: VITAL SIGNS: Blood pressure 186/97, heart rate 86, respiratory rate 20, afebrile. GENERAL: Moderately obese. HEENT: Conjunctivae pink. Oropharynx clear. Mucous membranes moist. NECK: Supple. Jugular venous pressure difficult to assess due to body habitus. LUNGS: With clear breath sounds. CARDIAC: Regular rhythm rate. Normal S1, S2 with a fourth heart sound. No chest wall tenderness. BREASTS: Without discrete masses. ABDOMEN: Soft, nontender. EXTREMITIES: No edema. Degenerative changes of the joints noted. LABORATORY AND DIAGNOSTIC DATA: White count 5.4, hemoglobin 10.2. BUN 20, creatinine 0.9, potassium 3.8. Troponin is negative. EKG with sinus rhythm and nonspecific ST-T wave changes. Chest x-ray with no acute process. IMPRESSION: 1. Acute coronary syndrome. 2. Malignant hypertension. 3. Type 2 diabetes mellitus. 4. 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 PLAN: Admit to hospital. air sampling and monitoring. Anti-platelet therapy. Optimize blood pressure control. DVT prophylaxis. Consider V/Q scan to assess for possible pulmonary emboli. May consider repeat noninvasive assessment of coronary flow as well depending on clinical course and preliminary studies. Dov Ferris M.D. DR: Eveline JOB#: [id number] CC:
[2017-06-29] MEDS: Heparin 5000 units/ml inj SUBQ SCH ×4 (06:00→21:20)
[2017-06-29 08:22] LABS: ALANINE AMINOTRANSFERASE 15 U/L (12-78); ALBUMIN 3.3 G/DL (3.4-5.0); ALBUMIN/GLOBULIN RATIO 0.8 (1.0-2.7); ALKALINE PHOSPHATASE 66 U/L (46-116); ANION GAP 6 mmol/L (5-15); ASPARTATE AMINO TRANSFERASE 25 U/L (15-37); BILIRUBIN,TOTAL 0.5 MG/DL (0.2-1.0); BLOOD UREA NITROGEN 14 mg/dL (7-18); CALCIUM 8.8 MG/DL (8.5-10.1); CARBON DIOXIDE 28 MMOL/L (21-32); CHLORIDE 105 MMOL/L (98-107); CHOLESTEROL 216 MG/DL (< 200); CREATININE 0.7 MG/DL (0.55-1.30); HDL CHOLESTEROL 113 MG/DL (40-60); POTASSIUM 3.4 MMOL/L (3.5-5.1); SODIUM 139 MMOL/L (136-145); TRIGLYCERIDES 55 MG/DL (30-150)
[2017-06-29] MEDS ORDERED: dilTIAZem HCl CD 180mg cap ORAL SCH (09:00)
--- NOTE | 2017-06-29 09:05 | Diagnostic Imaging Report ---
Indication: Shortness of breath Technique: One view of the chest Comparison: 04/19/2017 Findings: Inspiration is suboptimal. Lungs and pleural spaces are clear. Heart size is upper limits normal. The aorta is tortuous and ectatic and calcified. Findings are unchanged Impression: No acute process
[2017-06-29] MEDS: Aspirin EC 81mg tab ORAL SCH (09:32)
[2017-06-29] MEDS: Diclofenac 25mg tab ORAL SCH ×3 (09:32→19:02)
[2017-06-29] MEDS: dilTIAZem HCl CD 180mg cap ORAL SCH (15:55)
--- NOTE | 2017-06-29 16:13 | Diagnostic Imaging Report ---
Indications: 76-year-old female with chest pain and hypertension Technique: Single day single isotope protocol utilized. Initially, resting images obtained using IV administration 10 millicuries 99M technetium Myoview. Subsequently, patient underwent lexiscan stress testing. See cardiology report for details. During Lexiscan infusion, IV administration 13.1 mCi 99 M technetium Myoview. SPECT and planar images obtained. SPECT images gated to 8 phases of the cardiac cycle were also obtained, and reformatted into cine images for evaluation of ejection fraction. Comparison: Findings: Per cardiology report, patient experienced no focal wall motion abnormality and 8, flushing, dizziness, and shortness of breath. Per cardiology report, resting EKG demonstrates normal sinus rhythm. No EKG changes noted during the infusion. Imaging imaging demonstrates very questionable tiny post stress perfusion defect inferolateral wall near the apex, not definitely evident on the resting images.. Normal cardiac chamber size. Calculated post stress ejection fraction 69% no focal wall motion abnormality Impression: Nonischemic clinical response to pharmacologic stress, per cardiology report Nonischemic electrocardiographic response to pharmacologic stress, per cardiology report Tiny focus of apparent decreased post stress perfusion in the inferolateral wall near the apex, not evident on the resting images. Suspect artifactual, but small area of ischemia is also possible Calculated post stress ejection fraction 69%
--- NOTE | 2017-06-29 17:40 | Cardiology Report ---
APPROVED REPORT EKG Measurement Heart [id number] Sinus rhythm with premature atrial complexes Minimal voltage criteria for LVH, may be normal variant Borderline ECG
[2017-06-29] MEDS ORDERED: Hyzaar 12.5mg/50mg tab ORAL SCH ×2 (19:00→21:30)
[2017-06-29] MEDS ORDERED: NS w/KCl 20mEq 1,000 ML IV SCH (20:30)
--- NOTE | 2017-06-29 21:15 | Progress Note ---
DATE: 06/29/2017 CARDIOLOGY PROGRESS NOTE SUBJECTIVE: The patient had a myocardial perfusion scan with Lexiscan stress today. The study revealed normal ejection fraction with peak stress of near 70%. Apical artifact versus small amount of ischemia was noted. The patient continues to have some chest discomfort, but feels much better. No shortness of breath. OBJECTIVE: VITAL SIGNS: The patient continues to have elevated blood pressure readings as noted in the chart up to 180/112. NECK: Supple. LUNGS: Clear. CARDIAC: Regular. CHEST WALL: With no focal tenderness. ABDOMEN: Soft. EXTREMITIES: No edema. IMPRESSION: 1. Chest pain. 2. Microvascular angina. 3. Malignant hypertension. 4. Osteoarthritis. PLAN: 1. Advance antihypertensives. 2. V/Q scan to evaluate for possible pulmonary embolic event. 3. Continue anti-platelet therapy. 4. Follow up lipid panel. Dov Ferris M.D. DR: Mayank JOB#: [id number] CC:
[2017-06-30] VITALS: BP 161/86
[2017-06-30] MEDS: Norco 5mg/325mg tab ORAL PRN ×2 (00:01→09:15)
[2017-06-30] MEDS: Albuterol/Ipratropium 3ml neb HHN SCH ×3 (01:02→13:18)
[2017-06-30 04:00] VITALS: BP 139/81
[2017-06-30] MEDS: dilTIAZem HCl CD 180mg cap ORAL SCH (05:54)
[2017-06-30] MEDS: Heparin 5000 units/ml inj SUBQ SCH ×2 (05:55→14:00)
[2017-06-30 07:19] LABS: ALANINE AMINOTRANSFERASE 14 U/L (12-78); ALBUMIN 3.5 G/DL (3.4-5.0); ALBUMIN/GLOBULIN RATIO 0.8 (1.0-2.7); ALKALINE PHOSPHATASE 69 U/L (46-116); ANION GAP 8 mmol/L (5-15); ASPARTATE AMINO TRANSFERASE 27 U/L (15-37); BILIRUBIN,TOTAL 0.6 MG/DL (0.2-1.0); BLOOD UREA NITROGEN 14 mg/dL (7-18); CALCIUM 9.1 MG/DL (8.5-10.1); CARBON DIOXIDE 26 MMOL/L (21-32); CHLORIDE 101 MMOL/L (98-107); CREATININE 0.9 MG/DL (0.55-1.30); POTASSIUM 3.4 MMOL/L (3.5-5.1); SODIUM 135 MMOL/L (136-145)
[2017-06-30 08:00] VITALS: BP 145/90
[2017-06-30] MEDS ORDERED: Hyzaar 12.5mg/50mg tab ORAL SCH (09:00)
[2017-06-30] MEDS: Diclofenac 25mg tab ORAL SCH ×2 (09:14→14:09)
[2017-06-30] MEDS: Aspirin EC 81mg tab ORAL SCH (09:16)
[2017-06-30 12:00] VITALS: BP 161/86
--- NOTE | 2017-06-30 14:02 | Diagnostic Imaging Report ---
Indication: Chest pain Technique: A ventilation/perfusion scan was performed. Ventilation was performed utilizing 40 mCi of Technetium 99m-DTPA. Perfusion was performed with 5 mCi of technetium 99m-MAA injected intravenously. Multiple side by side projections obtained. Findings: Ventilation is mostly homogeneous. No defects are identified. Perfusion is mostly homogeneous. No significant defects are identified. Central airway retention of tracer noted. Impression: Low probability for pulmonary embolus
--- NOTE | 2017-06-30 21:15 | Progress Note ---
DATE: 06/28/2017 CARDIOLOGY PROGRESS NOTE SUBJECTIVE: The patient without chest pain or shortness of breath. She notes the discomfort in her back and neck with mobility. The patient's myocardial perfusion scan was described yesterday and was essentially normal with the possibility of a small amount of apical ischemia but this was most likely artifactual. The ventilation/perfusion scan today with low probability for pulmonary emboli. PHYSICAL EXAMINATION: VITAL SIGNS: Blood pressure 161/86, pulse 91, respiratory rate 20. NECK: Supple. LUNGS: Clear. CARDIAC: Regular. Normal S1 and S2 with a fourth heart sound. ABDOMEN: Soft. EXTREMITIES: No edema. IMPRESSION: 1. Musculoskeletal chest pain. 2. Malignant hypertension improving but still suboptimally controlled. 3. Microvascular angina. 4. Osteoarthritis. 5. Degenerative disk disease. PLAN: 1. Stable for outpatient management. 2. Continue current medications. 3. Further titration of antihypertensives as outpatient. 4. Strict sodium restriction. 5. Symptom guarded pain control. 6. Physical therapy to be arranged as an outpatient. Dov Ferris M.D. DR: Parker JOB#: [id number] CC:
--- NOTE | 2017-07-01 16:20 | Discharge Summary ---
Discharge Summary Hospital Course Date of Admission Jun 28, 2017 at 22:04 Date of Discharge Jun 30, 2017 at 15:46 Admitting Diagnosis ACUTE CORONARY SYNDROME HPI Shirley Delgado is a 76 year old female who was admitted on Jun 28, 2017 at 22:04 for Acute Coronary Syndrome Hospital Course [id number] Discharge Discharge Disposition Patient was discharged to Home (01) Desiree Mcnair NP Jul 01, 2017 16:20
--- NOTE | 2017-07-01 23:15 | Discharge Summary 2 SIG ---
DATE OF ADMISSION: 06/28/2017 DATE OF DISCHARGE: 06/30/2017 BRIEF HOSPITAL COURSE: The patient is a 76-year-old female with multiple risk factors including coronary artery disease presented to emergency room complaining of mid substernal chest pressure, described as stabbing and severe with 9/10 in intensity. Symptoms were unprovoked and was not associated with any specific activity, positioning or without any shortness of breath, nausea or vomiting. She has medical history significant for hypertensive heart disease, diastolic dysfunction, history of labile blood pressure, bronchospastic lung disease, osteoarthritis, diabetes mellitus, history of total knee replacement and degenerative disk disease. On evaluation at ED, troponin was negative. EKG was in normal sinus rhythm with nonspecific ST to T-wave changes. Chest x-ray with no acute process. Blood work was at baseline levels. Chest x-ray showed borderline cardiomegaly. Due to her risk factors, she was admitted to telemetry for evaluation of possible acute coronary syndrome and malignant hypertension. She was placed on anti-platelet therapy and cardiac troponins were monitored. She underwent myocardial perfusion scan, which was essentially normal. There was possibility of small amount of apical ischemia, but was most likely artifact. She also had a V/Q scan that showed low probability for pulmonary emboli. Chest pain possibly musculoskeletal in origin. Blood pressure was suboptimally controlled. She was placed on Hyzaar 50/125 mg with clonidine p.r.n. and diltiazem 180 mg b.i.d. Blood culture did not isolate any growth and influenza screen was negative. She was stable for outpatient management and was eventually discharged home. Physical therapy to be arranged as an outpatient. FINAL DIAGNOSES: 1. Musculoskeletal chest pain. 2. Malignant hypertension improving, but still suboptimally controlled. 3. Microvascular angina. 4. Osteoarthritis. 5. Degenerative disc disease. 6. Hypokalemia. DISPOSITION: The patient was discharged home. DISCHARGE MEDICATIONS: Refer to medication list. Dov Ferris M.D. I have been assigned to dictate discharge summary on this account and I was not involved in the patient's management. Desiree Mcnair N.P. DR: JENNIFER JOB#: [id number] CC: ALE
== END 2017-06-30 15:46 | disposition home or self-care (01) | DRG 311 ==
LOC: EMR 20:20 → 2E 22:04 → EDBEDREQ 22:51
DX: I20.8 Other forms of angina pectoris (principal); M19.90 Unspecified osteoarthritis, unspecified site; E11.9 Type 2 diabetes mellitus without complications; I11.9 Hypertensive heart disease without heart failure; Z96.659 Presence of unspecified artificial knee joint; Z88.0 Allergy status to penicillin; E87.6 Hypokalemia; J44.9 Chronic obstructive pulmonary disease, unspecified; Z88.1 Allergy status to other antibiotic agents
CPT/HCPCS: 36415; 71045; 78452; 78579; 78580; 80053; 80061; 82550; 82553; 83605; 83735; 84443; 84484; 85025; 86710; 87040; 93005; 93017; 94640; 94664; 99285; A9503; J2785; J7620; J8499

== ENCOUNTER 2017-09-05 12:29 | Inpatient (IN) | payer MEDICARE, OTHER ==
[~2017-09-05] VITALS: Ht 152.4 cm; Wt 104.3 kg
[~2017-09-05 12:29] MED LIST changes: +UNOBMED
[2017-09-05 13:39] LABS: BASOPHILS % (AUTO) 1.5 % (0.0-2.0); EOSINOPHILS % (AUTO) 7.1 % (0.0-3.0); HEMATOCRIT 30.9 % (37.0-47.0); HEMOGLOBIN 10.2 G/DL (12.0-16.0); LYMPHOCYTES % (AUTO) 15.2 % (20.0-45.0); MEAN CORPUSCULAR VOLUME 94 FL (80-99); MONOCYTES % (AUTO) 7.4 % (1.0-10.0); NEUTROPHILS % (AUTO) 68.8 % (45.0-75.0); PLATELET COUNT 181 K/UL (150-450); RED BLOOD COUNT 3.28 M/UL (4.20-5.40); RED CELL DISTRIBUTION WIDTH 13.2 % (11.6-14.8); WHITE BLOOD COUNT 5.6 K/UL (4.8-10.8)
[2017-09-05 13:42] VITALS: BP 153/71
[2017-09-05 14:34] LABS: ANION GAP 10 mmol/L (5-15); BLOOD UREA NITROGEN 12 mg/dL (7-18); CALCIUM 8.9 MG/DL (8.5-10.1); CARBON DIOXIDE 28 MMOL/L (21-32); CHLORIDE 101 MMOL/L (98-107); CREATININE 0.9 MG/DL (0.55-1.30); POTASSIUM 3.3 MMOL/L (3.5-5.1); SODIUM 139 MMOL/L (136-145)
[2017-09-05 14:39] LABS: ALANINE AMINOTRANSFERASE 16 U/L (12-78); ALBUMIN 3.6 G/DL (3.4-5.0); ALBUMIN/GLOBULIN RATIO 0.8 (1.0-2.7); ALKALINE PHOSPHATASE 69 U/L (46-116); ASPARTATE AMINO TRANSFERASE 21 U/L (15-37); BILIRUBIN,TOTAL 0.6 MG/DL (0.2-1.0); CHOLESTEROL 241 MG/DL (< 200); CREATINE KINASE 101 U/L (26-308); HDL CHOLESTEROL 103 MG/DL (40-60); TRIGLYCERIDES 86 MG/DL (30-150)
[2017-09-05] MEDS ORDERED: UNOBMED (15:45)
[2017-09-05 15:56] VITALS: BP 144/61
[2017-09-05] MEDS ORDERED: Norco 5mg/325mg tab ORAL ONE (16:15)
--- NOTE | 2017-09-05 16:29 | Emergency Room Report ---
History of Present Illness General Chief Complaint: Generalized Weakness Source: Patient Present Illness HPI The patient is a 77-year-old female who presented after increased generalized weakness as well as a visual changes. Patient reports having increased blurring of her vision. She stated that she was having increased generalized weakness with associated dizziness. The patient stated that she had been noticed her blood pressure to be markedly elevated at home. A prior history of COPD. The patient poured having some increased difficulty breathing. Allergies: Coded Allergies: AMOXICILLIN (Verified Allergy, Mild, 03/04/13) PENICILLINS (Verified Allergy, Mild, Hives, 10/01/15) Patient History Past Medical History: see triage record Last Menstrual Period: na Reviewed Nursing Documentation: PMH: Agreed; PSxH: Agreed Nursing Documentation-PMH Past Medical History: No History, Except For Hx Cardiac Problems: Yes Hx Hypertension: Yes Hx Asthma: No Hx COPD: Yes Hx Diabetes: Yes - borderline Hx Cancer: No Hx Gastrointestinal Problems: No Hx Neurological Problems: No Hx Dizziness: Yes Review of Systems All Other Systems: negative except mentioned in HPI Physical Exam Vital Signs Date Time Temp Pulse Resp B/P (MAP) Pulse Ox O2 Delivery O2 Flow Rate FiO2 09/05/17 12:42 98.1 81 18 176/79 99 Room Air 98.1 Sp02 EP Interpretation: reviewed, normal General Appearance: normal inspection, well appearing, no apparent distress, alert, GCS 15, obese, Chronically Ill Head: atraumatic ENT: normal ENT inspection, hearing grossly normal, normal voice Neck: normal inspection, full range of motion, supple, no bony tend Respiratory: normal inspection, lungs clear, no respiratory distress, no retraction, rhonchi - at lung bases Cardiovascular #1: regular rate, rhythm, no edema Gastrointestinal: normal inspection, normal bowel sounds, non tender, soft, no guarding, no hernia Genitourinary: no CVA tenderness Musculoskeletal: normal inspection, back normal, normal range of motion Neurologic: normal inspection, alert, oriented x3, responsive, purse seiner III-XII nml as tested, speech normal Psychiatric: normal inspection, judgement/insight normal, mood/affect normal Skin: normal inspection, normal color, no rash Medical Decision Making Diagnostic Impression: Primary Impression: COPD exacerbation Additional Impressions: Near syncope Hypertension ER Course Patient presented for shortness of breath. Differential included but was not limited to anemia, pneumonia, pneumothorax, myocardial infarction, pericardial effusion, congestive heart failure, acidosis. Because of complexity of patient' s case laboratory testing and imaging studies were ordered. The laboratory testing. The patient was given breathing treatment. The patient was noted to have a some improvement in her symptoms spontaneously. Patient the appears to have some continued the difficulty with breathing. The patient was discussed with Dr. Amadeo Castle for inpatient management due to primary care physician. Labs Test 09/05/17 13:16 White Blood Count 5.6 K/UL (4.8-10.8) Red Blood Count 3.28 M/UL (4.20-5.40) Hemoglobin 10.2 G/DL (12.0-16.0) Hematocrit 30.9 % (37.0-47.0) Mean Corpuscular Volume 94 FL (80-99) Mean Corpuscular Hemoglobin 31.1 PG (27.0-31.0) Mean Corpuscular Hemoglobin Concent 33.0 G/DL (32.0-36.0) Red Cell Distribution Width 13.2 % (11.6-14.8) Platelet Count 181 K/UL (150-450) Mean Platelet Volume 9.0 FL (6.5-10.1) Neutrophils (%) (Auto) 68.8 % (45.0-75.0) Lymphocytes (%) (Auto) 15.2 % (20.0-45.0) Monocytes (%) (Auto) 7.4 % (1.0-10.0) Eosinophils (%) (Auto) 7.1 % (0.0-3.0) Basophils (%) (Auto) 1.5 % (0.0-2.0) Prothrombin Time 10.2 SEC (9.30-11.50) Prothromb Time International Ratio 1.0 (0.9-1.1) Activated Partial Thromboplast Time 27 SEC (23-33) Sodium Level 139 MMOL/L (136-145) Potassium Level 3.3 MMOL/L (3.5-5.1) Chloride Level 101 MMOL/L (98-107) Carbon Dioxide Level 28 MMOL/L (21-32) Anion Gap 10 mmol/L (5-15) Blood Urea Nitrogen 12 mg/dL (7-18) Creatinine 0.9 MG/DL (0.55-1.30) Estimat Glomerular Filtration Rate mL/min (>60) Glucose Level 126 MG/DL (74-106) Calcium Level 8.9 MG/DL (8.5-10.1) Total Bilirubin 0.6 MG/DL (0.2-1.0) Aspartate Amino Transf (AST/SGOT) 21 U/L (15-37) Alanine Aminotransferase (ALT/SGPT) 16 U/L (12-78) Alkaline Phosphatase 69 U/L (46-116) Total Creatine Kinase 101 U/L (26-308) Troponin I 0.000 ng/mL (0.000-0.056) Total Protein 7.9 G/DL (6.4-8.2) Albumin 3.6 G/DL (3.4-5.0) Globulin 4.3 g/dL Albumin/Globulin Ratio 0.8 (1.0-2.7) Triglycerides Level 86 MG/DL (30-150) Cholesterol Level 241 MG/DL (< 200) LDL Cholesterol 126 mg/dL (<100) HDL Cholesterol 103 MG/DL (40-60) Cholesterol/HDL Ratio 2.3 (3.3-4.4) EKG Diagnostic Results Rate: normal - 82 Rhythm: NSR ST Segments: no acute changes Last Vital Signs Date Time Temp Pulse Resp B/P (MAP) Pulse Ox O2 Delivery O2 Flow Rate FiO2 09/05/17 16:07 98.4 09/05/17 15:56 83 20 144/61 99 Room Air Status: unchanged Disposition: ADMITTED INPATIENT Condition: Serious Referrals: Amadeo Castle MD (PCP) Deangelo Campos MD Sep 05, 2017 16:29
[2017-09-05] MEDS ORDERED: HydrALAZINE 25mg tab ORAL PRN (16:45)
[2017-09-05] MEDS ORDERED: HYDROcodone/Acetamin 10/325 tab ORAL SCH (16:45)
[2017-09-05] MEDS ORDERED: Albuterol ud Inhalation HHN PRN (16:45)
[2017-09-05] MEDS ORDERED: Milk of Magnesia 30ml Ud ORAL PRN (16:45)
[2017-09-05] MEDS ORDERED: Simethicone 80mg tab ORAL PRN (16:45)
[2017-09-05] MEDS ORDERED: Promethazine/Codeine 5ml UD ORAL PRN (16:45)
[2017-09-05] MEDS ORDERED: Nitroglycerin Subl 0.4mg tab SL PRN (16:45)
[2017-09-05] MEDS ORDERED: dilTIAZem HCl CD 180mg cap ORAL SCH (17:00)
[2017-09-05] MEDS: Docusate 100mg cap ORAL SCH (17:46)
[2017-09-05] MEDS: Albuterol/Ipratropium 3ml neb HHN SCH (19:00)
[2017-09-05 20:00] VITALS: BP 150/69
[2017-09-05] MEDS: Heparin 5000 units/ml inj SUBQ SCH (21:00)
[2017-09-05] MEDS: Advair 100/50 Inhaler - 14 dose INH SCH (21:48)
[2017-09-05] MEDS: HYDROcodone/Acetamin 10/325 tab ORAL PRN (22:25)
[2017-09-06] VITALS: BP 136/59
[2017-09-06] MEDS: Albuterol/Ipratropium 3ml neb HHN SCH ×4 (01:00→18:40)
--- NOTE | 2017-09-06 03:00 | Consultation ---
DATE OF CONSULTATION: 09/05/2017 CARDIOLOGY CONSULTATION CONSULTING PHYSICIAN: Dov Ferris M.D. REQUESTING PHYSICIAN: Amadeo Castle M.D. REASON FOR CONSULTATION: Malignant hypertension. HISTORY OF PRESENT ILLNESS: This is a 77-year-old [place] female, presented to the emergency room after progressive weakness, dizziness, and near syncope. She notes that her blood pressure has been increasingly elevated over 180/100. She has noted some blurriness of her vision and felt that she was about to pass out, but caught herself down, laid down, and did not lose consciousness as a result. The patient has not had chest pain or shortness of breath. She has not had any change in her diet and has been compliant with her medications. She notes increasing pain however from her left knee, which has been chronically painful due to osteoarthritis, but worse at this time. PAST MEDICAL HISTORY: Chronic obstructive pulmonary disease, hypertensive heart disease, osteoarthritis, vitamin D deficiency, degenerative disk disease, hypertrophic cardiomyopathy, and glucose intolerance/metabolic syndrome. ALLERGIES: Penicillin. SOCIAL HISTORY: Negative for smoking, alcohol, or substance abuse. MEDICATIONS: Prior to admission, reviewed and reconciled. REVIEW OF SYSTEMS: No fevers or chills. No cough. No sputum production. She uses her inhalers as needed. She has not noted any recent worsening in her respiratory status. No history of blood clots in the legs. She has had prior myocardial perfusion scans that have been negative for flow-limiting coronary disease. Her most recent echocardiogram revealed normal ejection fraction, concentric hypertrophy, and diastolic dysfunction. Sustained cardiac arrhythmias. There is no history of thyroid disorder. There is a history of glucose intolerance managed with diet. PHYSICAL EXAMINATION: GENERAL: Moderately obese, no acute distress. VITAL SIGNS: Blood pressure 176/79, pulse 81, respirations 18, and afebrile in the emergency room. HEENT: Conjunctivae pink. Sclerae are anicteric. Oropharynx clear. NECK: Supple. Jugular venous pressure normal. LUNGS: Clear. CARDIAC: Regular rhythm and rate. Normal S1, S2 with a fourth heart sound. BREASTS: Pendulous. No masses. ABDOMEN: Obese and soft with no ascites, no pulsatile masses, no bruits. EXTREMITIES: Reveal no pitting edema. There is a healed scar over the right knee. The left knee has small effusion and diffuse tenderness over the joint. There is no calf tenderness and good distal pulses are noted. NEUROLOGIC: Nonfocal. LABORATORY DATA: White count 5.6, hemoglobin 10.2, MCV 94. Potassium 3.3, BUN 12, creatinine 0.9. Troponin negative. Total cholesterol 240. HDL is 103. IMPRESSION: 1. Hypertensive urgency. 2. Near syncope. 3. Hypokalemia. 4. Acute and chronic pain of left knee. PLAN: 1. Stepwise titration of antihypertensive regimen. 2. Antiplatelet therapy. 3. DVT prophylaxis. 4. Pain control. 5. Consider further intervention for left knee including steroid injection. Dov Ferris M.D. DR: KEVIN JOB#: [id number] CC:
[2017-09-06 04:00] VITALS: BP 134/56
[2017-09-06] MEDS: HYDROcodone/Acetamin 10/325 tab ORAL PRN ×3 (05:57→22:45)
[2017-09-06 06:43] LABS: BASOPHILS % (AUTO) 1.6 % (0.0-2.0); EOSINOPHILS % (AUTO) 10.9 % (0.0-3.0); HEMOGLOBIN 9.8 G/DL (12.0-16.0); LYMPHOCYTES % (AUTO) 27.3 % (20.0-45.0); MEAN CORPUSCULAR VOLUME 93 FL (80-99); MONOCYTES % (AUTO) 10.2 % (1.0-10.0); NEUTROPHILS % (AUTO) 50.1 % (45.0-75.0); PLATELET COUNT 199 K/UL (150-450); RED BLOOD COUNT 3.24 M/UL (4.20-5.40); RED CELL DISTRIBUTION WIDTH 12.7 % (11.6-14.8); WHITE BLOOD COUNT 5.6 K/UL (4.8-10.8)
[2017-09-06 06:57] LABS: % IRON SATURATION 17 % (15-50); IRON 51 ug/dL (50-175); TOTAL IRON BINDING CAPACITY 309 ug/dL (250-450)
[2017-09-06] MEDS: Advair 100/50 Inhaler - 14 dose INH SCH ×2 (07:00→22:35)
[2017-09-06 07:22] LABS: ALANINE AMINOTRANSFERASE 16 U/L (12-78); ALBUMIN 3.4 G/DL (3.4-5.0); ALBUMIN/GLOBULIN RATIO 0.9 (1.0-2.7); ALKALINE PHOSPHATASE 64 U/L (46-116); ANION GAP 9 mmol/L (5-15); ASPARTATE AMINO TRANSFERASE 18 U/L (15-37); BILIRUBIN,TOTAL 0.5 MG/DL (0.2-1.0); BLOOD UREA NITROGEN 15 mg/dL (7-18); CALCIUM 9.1 MG/DL (8.5-10.1); CARBON DIOXIDE 27 MMOL/L (21-32); CHLORIDE 104 MMOL/L (98-107); CREATININE 0.9 MG/DL (0.55-1.30); POTASSIUM 3.1 MMOL/L (3.5-5.1); SODIUM 140 MMOL/L (136-145)
[2017-09-06 08:00] VITALS: BP 119/44
--- NOTE | 2017-09-06 08:33 | Diagnostic Imaging Report ---
Indication: Altered mental status Technique: spiral acquisitions obtained through the brain. Angled axial and coronal 5 x 5 mm slices were reconstructed. No IV contrast utilized. Radiation dose was minimized using automated exposure control Total dose length product 1312.75 mGycm. CTDIvol(s) 70.38 mGy Comparison: none FINDINGS: No acute hemorrhage or edema. No mass effect or midline shift. There is age-related enlargement of the ventricles and extra axial CSF spaces. There is periventricular deep white matter ischemic change. Normal pinedo-white differentiation. Visualized orbits are unremarkable. Visualized sinuses are unremarkable. Intact calvarium. Tiny old lacunar infarct is seen in the right basal ganglia IMPRESSION: Chronic and age-related changes. Negative for acute intracranial bleed or mass effect This agrees with the preliminary interpretation provided overnight by [facility] teleradiology service. The CT scanner at [facility] is accredited by the [employer] and the scans are performed using protocols designed to limit radiation exposure to as low as reasonably achievable to attain images of sufficient resolution adequate for diagnostic evaluation
[2017-09-06] MEDS: dilTIAZem HCl CD 180mg cap ORAL SCH (09:00)
[2017-09-06] MEDS: Aspirin Baby 81mg ORAL SCH (09:06)
[2017-09-06] MEDS: Docusate 100mg cap ORAL SCH ×2 (09:06→17:19)
[2017-09-06] MEDS: Heparin 5000 units/ml inj SUBQ SCH ×2 (09:09→22:46)
[2017-09-06 12:00] VITALS: BP 141/77
--- NOTE | 2017-09-06 13:34 | Cardiology Report ---
APPROVED REPORT EKG Measurement Heart [id number] Sinus rhythm with 1st degree AV block Left axis deviation Abnormal ECG
--- NOTE | 2017-09-06 14:36 | Diagnostic Imaging Report ---
Indication: Dizziness Technique: sagittal T1 fast spin echo, axial T1 FLAIR, axial T2 FLAIR, axial T2 FS PROPELLER, axial T2* GRE, axial diffusion weighted images. ADC and exponential ADC maps generated Comparison: CT brain 09/05/2017. No prior brain MRIs Findings: The vascular flow voids are preserved. No abnormal areas of restricted diffusion to suggest acute infarction. No acute hemorrhage or edema. No mass effect nor midline shift. There is mild age-related enlargement of the ventricles and extra axial CSF spaces. There is periventricular deep white matter T2 increased signal, compatible with chronic deep white matter small vessel ischemic change. Visualized orbits and sinuses are unremarkable. Impression: Chronic and age-related changes Negative for acute intracranial bleed, mass effect, or infarct
[2017-09-06 16:00] VITALS: BP 136/69
--- NOTE | 2017-09-06 16:00 | History and Physical Report ---
DATE OF ADMISSION: 09/05/2017 CHIEF COMPLAINT: Dizziness, vertigo, near syncope, hypertensive urgency. HISTORY OF PRESENT ILLNESS: The patient is a pleasant 77-year-old female. She has a history of asthma, hypertension. She has a history of recent knee replacement. She presented from home with complaints of severe dizziness. According to the patient, she had severe dizziness and vertigo lasting several hours with some associated weakness on the left side. She presented to the emergency room. CT scan of the head showed no evidence of any acute stroke or bleed. She is now admitted for further evaluation and care. She was noted in the emergency room to be markedly hypertensive with systolic blood pressure as high as 176. She denies any headaches, fevers, chills. She has had no falls. She denies any shortness of breath or heart palpitations. PAST MEDICAL HISTORY: As above. PAST SURGICAL HISTORY: Includes knee replacement. CURRENT MEDICATIONS: Reconciled and reviewed. ALLERGIES: Include penicillin. FAMILY HISTORY: Noncontributory. SOCIAL HISTORY: Negative for tobacco, ethanol, or drugs. REVIEW OF SYSTEMS: GENERAL: No fever or chills. HEENT: No headaches or visual changes. Positive dizziness. CARDIOPULMONARY: No chest pain or shortness of breath. GASTROINTESTINAL: No nausea or vomiting. GENITOURINARY: No urgency or frequency. MUSCULOSKELETAL: No joint pain or swelling. NEUROLOGIC: No evidence of seizures. PHYSICAL EXAMINATION: VITAL SIGNS: Temperature 98.4, pulse 83, respirations 20, and blood pressure 144/61. GENERAL: The patient is a well developed, no apparent distress. NECK: Supple. No carotid bruits. HEART: Regular rate and rhythm. LUNGS: Clear. ABDOMEN: Soft, nontender, and nondistended. EXTREMITIES: Without clubbing or cyanosis. NEUROLOGIC: Cranial nerves II through XII intact. Motor strength is 5/5 bilaterally. Sensation is intact bilaterally. Reflexes 2+. [id number] is normal. LABORATORY AND DIAGNOSTIC DATA: CT head negative. White count 5, hemoglobin 10, hematocrit 30 and platelet count of 181. Sodium 139, potassium 3.3. LDL is 126. ASSESSMENT: This is a pleasant female with complaints of a near syncope, vertigo, and dizziness. Unclear etiology this may be related to patient's uncontrolled high blood pressure. Other possibilities include benign positional vertigo or possible cerebellar stroke. PLAN: Continue current cardiac regimen. Cardiology evaluation. MRI of the brain. PT/OT evaluations. We will monitor the patient's blood pressure and vitals closely. Amadeo Castle M.D. DR: LAMAR JOB#: [id number] CC:
[2017-09-06 20:49] VITALS: BP 145/70
[2017-09-07] VITALS: BP 154/77
[2017-09-07] MEDS: Albuterol/Ipratropium 3ml neb HHN SCH ×2 (01:20→08:02)
[2017-09-07 03:34] VITALS: BP 165/83
[2017-09-07 06:21] LABS: ANION GAP 8 mmol/L (5-15); BLOOD UREA NITROGEN 15 mg/dL (7-18); CALCIUM 9.2 MG/DL (8.5-10.1); CARBON DIOXIDE 27 MMOL/L (21-32); CHLORIDE 102 MMOL/L (98-107); CREATININE 0.9 MG/DL (0.55-1.30); POTASSIUM 3.7 MMOL/L (3.5-5.1); SODIUM 137 MMOL/L (136-145)
--- NOTE | 2017-09-07 06:30 | Progress Note ---
DATE: 09/06/2017 CARDIOLOGY PROGRESS NOTE SUBJECTIVE: The patient has not had any new episodes of loss of consciousness. She continues to have knee pain. She has no shortness of breath or chest pain. Monitored rhythm, sinus. OBJECTIVE: VITAL SIGNS: Blood pressure 145/70, heart rate 64, respiratory rate 16, and afebrile. Oxygen saturation on room air is 100%. NECK: Supple. LUNGS: Clear. CARDIAC: Regular rhythm. S1, S2 with a fourth heart sound. ABDOMEN: Soft. EXTREMITIES: No edema. Left knee with prepatellar effusion and tenderness. LABORATORY AND DIAGNOSTIC DATA: MRI of the brain reveals age-related chronic changes. Carotid duplex scan reveals mild plaquing of less than 50% bilaterally. White count 5.6, hemoglobin 9.8. Potassium 3.1. IMPRESSION: 1. Hypertensive urgency, now resolved. 2. Hypertensive heart disease with history of labile blood pressure. 3. Hypokalemia. 4. Cerebrovascular atherosclerosis. 5. lipid panel. 6. Degenerative osteoarthritis with left knee pain. PLAN: 1. Additional potassium replacement. 2. Maintain current cardiovascular regimen. 3. DVT prophylaxis. 4. Add Aldactone for additional blood pressure control and potassium-sparing effect. Dov Ferris M.D. DR: GAMAL JOB#: [id number] CC:
[2017-09-07 08:00] VITALS: BP 131/62
[2017-09-07] MEDS: dilTIAZem HCl CD 180mg cap ORAL SCH ×2 (09:00→09:14)
[2017-09-07] MEDS ORDERED: Spironolactone 25mg tab ORAL SCH (09:00)
[2017-09-07] MEDS: Aspirin Baby 81mg ORAL SCH ×2 (09:00→09:15)
[2017-09-07] MEDS: Docusate 100mg cap ORAL SCH (09:14)
[2017-09-07] MEDS: Heparin 5000 units/ml inj SUBQ SCH (09:17)
[2017-09-07] MEDS: Advair 100/50 Inhaler - 14 dose INH SCH (09:17)
[2017-09-07] MEDS: HYDROcodone/Acetamin 10/325 tab ORAL PRN (09:27)
--- NOTE | 2017-09-07 19:15 | Discharge Summary ---
DATE OF ADMISSION: 09/05/2017 DATE OF DISCHARGE: 09/07/2017 ADMISSION DIAGNOSES: 1. Vertigo and dizziness, rule out transient ischemic attack. 2. Hypertension. 3. Asthma. 4. History of osteoarthritis. 5. Knee replacement. DISCHARGE DIAGNOSES: 1. Vertigo and dizziness, rule out transient ischemic attack. 2. Hypertension. 3. Asthma. 4. History of osteoarthritis. 5. Knee replacement. HOSPITAL COURSE: The patient is a pleasant female, who was admitted with complaints of dizziness and left-sided weakness. Her symptoms are only transient. She was admitted to rule out for myocardial infarction with serial enzymes and EKG. She had a CAT scan of the head that was negative. She then had an MRI that showed no evidence of any stroke. On discharge, she was well. The patient will be discharged home with close outpatient followup. DISCHARGE MEDICATIONS: Please see discharge medication list for discharge medications. DIET: Cardiac diet. ACTIVITIES: Ad-nathan. FOLLOWUP: The patient will follow up in one to two weeks in the office. Amadeo Castle M.D. DR: CEDRICK JOB#: [id number] CC:
--- NOTE | 2017-09-08 04:30 | Progress Note ---
DATE: 09/07/2017 CARDIOLOGY PROGRESS NOTE SUBJECTIVE: No chest pain. No shortness of breath. No dizziness or loss of consciousness since admission. Left knee pain persists. OBJECTIVE: VITAL SIGNS: Blood pressure 131/62 to 165/83, heart rate 75 to 92, respiratory rate 16 to 18, afebrile, and oxygen saturation on room air is 97%. NECK: Supple. LUNGS: Clear. CARDIAC: Regular. Normal S1, S2 with a fourth heart sound. ABDOMEN: Soft. EXTREMITIES: No edema. Left knee with some prepatellar effusion. LABORATORY DATA: Chemistry panel today including magnesium is within normal limits. IMPRESSION: 1. Hypertensive urgency, now resolved. 2. Hypertensive heart disease with labile blood pressure, improved. 3. Chronic diastolic congestive heart failure, compensated. 4. Degenerative osteoarthritis with left knee pain, ongoing and will require outpatient follow up. 5. 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 6. Hypokalemia, corrected. 7. No evidence of acute cerebrovascular insult. PLAN: 1. Continue anti-platelet and anti-lipid therapy. 2. Maintain current cardiovascular regimen with compliance stressed and outpatient followup for further optimization. Dov Ferris M.D. DR: ELOINA JOB#: [id number] CC:
== END 2017-09-07 11:50 | disposition home or self-care (01) | DRG 305 ==
LOC: EMR 12:58 → 2E 13:44 → EDBEDREQ 14:31
DX: I16.0 Hypertensive urgency (principal); I50.32 Chronic diastolic (congestive) heart failure; E87.6 Hypokalemia; I11.0 Hypertensive heart disease with heart failure; Z96.659 Presence of unspecified artificial knee joint; Z88.0 Allergy status to penicillin; J45.909 Unspecified asthma, uncomplicated; J44.9 Chronic obstructive pulmonary disease, unspecified; R55 Syncope and collapse; I67.2 Cerebral atherosclerosis; M17.12 Unilateral primary osteoarthritis, left knee; J98.4 Other disorders of lung
CPT/HCPCS: 36415; 70450; 70551; 80048; 80053; 80061; 82550; 82962; 83540; 83550; 83735; 84443; 84484; 85025; 85610; 85651; 85730; 93005; 93880; 94640; 94664; 94760; 99285; J7620; J8499

== ENCOUNTER 2018-03-26 09:45 | Inpatient (IN) | payer MEDICARE, OTHER ==
[~2018-03-26] VITALS: Ht 157.5 cm; Wt 93.0 kg
[2018-03-26] MEDS ORDERED: Ipratropium 0.02% Inh Soln 2.5ml UD HHN ONE (10:00)
[2018-03-26] MEDS ORDERED: Albuterol ud Inhalation HHN ONE (10:00)
--- NOTE | 2018-03-26 10:00 | NUR ---
ED Nurse Note: Pt came from home c/o chest pain that radiates to back. pt states she has history of COPD. Will continue to monitor and await new orders
[2018-03-26 10:20] VITALS: BP 148/62
--- NOTE | 2018-03-26 10:29 | Emergency Room Report ---
History of Present Illness General Chief Complaint: Chest Pain Source: Patient Present Illness HPI Patient presents with several days of dyspnea. She is a history of asthma. Having difficulty getting around at home with help with her daughter. She felt chilled but didn't document fever. People around her have upper respiratory illnesses. She has chronic pain or calfs that's unchanged recently. She's felt nauseated. There's been no vomiting or diarrhea. She denies dysuria. Although she denies pain to me she reports pain 10/10 to RN in her chest. H/O COPD and has heard herself wheezing. Pain in L knee from DJD. Post replacement R knee. Pain rated 8/10. Allergies: Coded Allergies: AMOXICILLIN (Verified Allergy, Mild, 03/04/13) PENICILLINS (Verified Allergy, Mild, Hives/DIFFICULTY BREATHING, 10/29/17) Patient History Past Medical History: see triage record Social History: Denies: smoking Social History Narrative with daughter Now: No Reviewed Nursing Documentation: PMH: Agreed; PSxH: Agreed Nursing Documentation-PMH Past Medical History: No History, Except For Hx Cardiac Problems: Yes Hx Hypertension: Yes Hx Asthma: No Hx COPD: Yes Hx Diabetes: Yes - borderline Hx Cancer: No Hx Gastrointestinal Problems: No Hx Neurological Problems: No Hx Dizziness: Yes Review of Systems All Other Systems: negative except mentioned in HPI Physical Exam Vital Signs Date Time Temp Pulse Resp B/P (MAP) Pulse Ox O2 Delivery O2 Flow Rate FiO2 03/26/18 09:52 99.3 107 18 173/79 97 Room Air 03/26/18 10:02 21 Sp02 EP Interpretation: reviewed, normal General Appearance: well appearing, no apparent distress, GCS 15 Head: normocephalic, atraumatic Eyes: bilateral eye normal inspection, bilateral eye PERRL ENT: moist mucus membranes Neck: supple Respiratory: wheezing, expiration, other - chest wall pain Cardiovascular #1: tachycardia Cardiovascular #2: 2+ radial (R) Gastrointestinal: normal inspection, normal bowel sounds, non tender, no mass, non-distended Musculoskeletal: swelling - large effusion L knee, tender Neurologic: alert, oriented x3 Psychiatric: depressed affect Skin: normal inspection, warm/dry Medical Decision Making Diagnostic Impression: Primary Impression: Dyspnea Qualified Codes: R06.00 - Dyspnea, unspecified Additional Impressions: Bronchospasm Chest pain Qualified Codes: R07.9 - Chest pain, unspecified Left knee pain Qualified Codes: M25.562 - Pain in left knee COPD exacerbation ER Course Patient presents with dyspnea. Differential includes congestive failure, acute myocardial infarction, pneumonia, bronchitis, exacerbation of asthma amongst others. The patient will be evaluated with EKG, chest x-ray and labs. The patient will receive breathing treatments. Evaluated by Dr. Castle in ED. Treated with aspirin and nitro paste. EKG without injury. CXR no infiltrates.m - increase alcala. Labs with normal WBC low sodium and potassium with elevated glucose. Eosinophilia. Improved with breathing treatments, pain better in chest. C/O pain in her L knee. Requested [place]. Admit telemetry (Dr. Ferris requests Dr. Castle). Laboratory Tests Test 03/26/18 10:10 03/26/18 10:30 White Blood Count 9.1 K/UL (4.8-10.8) Red Blood Count 3.56 M/UL (4.20-5.40) L Hemoglobin 10.9 G/DL (12.0-16.0) L Hematocrit 32.7 % (37.0-47.0) L Mean Corpuscular Volume 92 FL (80-99) Mean Corpuscular Hemoglobin 30.5 PG (27.0-31.0) Mean Corpuscular Hemoglobin Concent 33.2 G/DL (32.0-36.0) Red Cell Distribution Width 12.9 % (11.6-14.8) Platelet Count 242 K/UL (150-450) Mean Platelet Volume 9.0 FL (6.5-10.1) Neutrophils (%) (Auto) 82.0 % (45.0-75.0) H Lymphocytes (%) (Auto) 5.1 % (20.0-45.0) L Monocytes (%) (Auto) 6.9 % (1.0-10.0) Eosinophils (%) (Auto) 4.6 % (0.0-3.0) H Basophils (%) (Auto) 1.5 % (0.0-2.0) Prothrombin Time 9.0 SEC (9.30-11.50) L Prothrombin Time INR 0.8 (0.9-1.1) L PTT 27 SEC (23-33) Sodium Level 134 MMOL/L (136-145) L Potassium Level 3.2 MMOL/L (3.5-5.1) L Chloride Level 97 MMOL/L (98-107) L Carbon Dioxide Level 28 MMOL/L (21-32) Anion Gap 9 mmol/L (5-15) Blood Urea Nitrogen 8 mg/dL (7-18) Creatinine 0.9 MG/DL (0.55-1.30) Estimate Glomerular Filtration Rate mL/min (>60) Glucose Level 166 MG/DL (74-106) H Lactic Acid Level 1.20 mmol/L (0.4-2.0) Calcium Level 9.0 MG/DL (8.5-10.1) Total Bilirubin 0.5 MG/DL (0.2-1.0) Aspartate Amino Transferase (AST) 28 U/L (15-37) Alanine Aminotransferase (ALT) 17 U/L (12-78) Alkaline Phosphatase 83 U/L (46-116) Total Creatine Kinase 222 U/L (26-308) Troponin I 0.000 ng/mL (0.000-0.056) Pro-B-Type Natriuretic Peptide 149 pg/mL (0-125) H Total Protein 8.1 G/DL (6.4-8.2) Albumin 3.6 G/DL (3.4-5.0) Globulin 4.5 g/dL Albumin/Globulin Ratio 0.8 (1.0-2.7) L Urine Color Pale yellow Urine Appearance Clear Urine pH 8 (4.5-8.0) Urine Specific [place] 1.010 (1.005-1.035) Urine Protein 3+ (NEGATIVE) H Urine Glucose (UA) Negative (NEGATIVE) Urine Ketones Negative (NEGATIVE) Urine Blood 3+ (NEGATIVE) H Urine Nitrite Negative (NEGATIVE) Urine Bilirubin Negative (NEGATIVE) Urine Urobilinogen Normal MG/DL (0.0-1.0) Urine Leukocyte Esterase Negative (NEGATIVE) Urine RBC 0-2 /HPF (0 - 2) Urine WBC 0 /HPF (0 - 2) Urine Squamous Epithelial Cells None /LPF (NONE/OCC) Urine Bacteria None /HPF (NONE) Microbiology Date/Time Source Procedure Growth Status 03/26/18 10:26 Nasal Nares Influenza Types A,B Antigen (LYLE) - Final Complete EKG Diagnostic Results Rate: tachycardiac Rhythm: NSR ST Segments: no acute changes Rhythm Strip Diag. Results EP Interpretation: yes Rhythm: no PVC's, no ectopy, other - ST Chest X-Ray Diagnostic Results Chest X-Ray Diagnostic Results : Chest X-Ray Ordered: Yes # of Views/Limited/Complete: 1 View Indication: Shortness of Breath EP Interpretation: Yes Interpretation: no effusion, no pneumothorax, other - increased alcala Impression: Other Electronically Signed by: Electronically signed by Dov Flores MD Last Vital Signs Date Time Temp Pulse Resp B/P (MAP) Pulse Ox O2 Delivery O2 Flow Rate FiO2 03/26/18 15:21 Room Air 03/26/18 14:50 98.8 102 23 138/66 98 21 Status: improved Disposition: ADMITTED INPATIENT Condition: Serious Referrals: Dov Ferris MD (PCP) Dov Flores MD Mar 26, 2018 10:28
--- NOTE | 2018-03-26 10:30 | NUR ---
ED Nurse Note: pt refuses to do VRE/CRE swab per protocol
[2018-03-26 10:33] LABS: BASOPHILS % (AUTO) 1.5 % (0.0-2.0); EOSINOPHILS % (AUTO) 4.6 % (0.0-3.0); HEMATOCRIT 32.7 % (37.0-47.0); HEMOGLOBIN 10.9 G/DL (12.0-16.0); LYMPHOCYTES % (AUTO) 5.1 % (20.0-45.0); MEAN CORPUSCULAR VOLUME 92 FL (80-99); MONOCYTES % (AUTO) 6.9 % (1.0-10.0); PLATELET COUNT 242 K/UL (150-450); RED BLOOD COUNT 3.56 M/UL (4.20-5.40); RED CELL DISTRIBUTION WIDTH 12.9 % (11.6-14.8); WHITE BLOOD COUNT 9.1 K/UL (4.8-10.8)
--- NOTE | 2018-03-26 10:39 | Diagnostic Imaging Report ---
EXAM: XR Chest, 1 View CLINICAL HISTORY: CP TECHNIQUE: Frontal view of the chest. COMPARISON: No relevant prior studies available. FINDINGS: Lungs: Reduced lung volumes. Accentuation of bronchovascular markings. Query poorly defined opacity from lesion or consolidation in the left lung base. Pleural space: Unremarkable. No pneumothorax. Heart: Large cardiac mediastinal silhouette. Mediastinum: See above. Bones/joints: Degenerative changes of the spine and shoulders. IMPRESSION: 1. Reduced lung volumes. Accentuation of bronchovascular markings. Could be from vascular congestion or inflammation. 2. Query poorly defined opacity from lesion or consolidation in the left lung base.
[2018-03-26 10:44] LABS: INR 0.8 (0.9-1.1)
[2018-03-26 10:45] LABS: APPEARANCE,URINE CLEAR; BILIRUBIN, URINE NEGATIVE (NEGATIVE); COLOR,URINE PALE YELLOW; GLUCOSE, URINE (UA) NEGATIVE (NEGATIVE); KETONES,URINE NEGATIVE (NEGATIVE); LEUKOCYTE ESTERASE ,URINE NEGATIVE (NEGATIVE); NITRITE,URINE NEGATIVE (NEGATIVE); PH,URINE 8 (4.5-8.0); PROTEIN,URINE 3+ (NEGATIVE); UROBILINOGEN,URINE NORMAL MG/DL (0.0-1.0)
[2018-03-26 10:48] LABS: ANION GAP 9 mmol/L (5-15); BLOOD UREA NITROGEN 8 mg/dL (7-18); CARBON DIOXIDE 28 MMOL/L (21-32); CHLORIDE 97 MMOL/L (98-107); CREATININE 0.9 MG/DL (0.55-1.30); POTASSIUM 3.2 MMOL/L (3.5-5.1); SODIUM 134 MMOL/L (136-145)
[2018-03-26 10:58] LABS: ALANINE AMINOTRANSFERASE 17 U/L (12-78); ALBUMIN 3.6 G/DL (3.4-5.0); ALBUMIN/GLOBULIN RATIO 0.8 (1.0-2.7); ALKALINE PHOSPHATASE 83 U/L (46-116); ASPARTATE AMINO TRANSFERASE 28 U/L (15-37); BILIRUBIN,TOTAL 0.5 MG/DL (0.2-1.0); CREATINE KINASE 222 U/L (26-308)
[2018-03-26] MEDS ORDERED: Solu-MEDROL 125mg Inj IVP ONE (11:30)
[2018-03-26 12:11] VITALS: BP 143/83
[2018-03-26] MEDS ORDERED: Nitroglycerin 2% oint pkt TOPIC ONE (13:00)
[2018-03-26] MEDS ORDERED: Norco 5mg/325mg tab ORAL ONE (14:00)
--- NOTE | 2018-03-26 14:27 | NUR ---
ED Nurse Note: pt report given to byron garcia. pt is accompanied by RN and EDT. Addendum: 03/26/18 at 1448 by PDELEON ED Nurse Note: receiving nurse on lunch, report given to BYRON Garcia
--- NOTE | 2018-03-26 14:48 | NUR ---
ED Nurse Note: pt. was transferred with cardiac catheterization technician and was accepted by BYRON Mclaughlin receiving nurse.
--- NOTE | 2018-03-26 14:49 | NUR ---
ED Nurse Note: all belonging were given to pt., pt vss, reports decreaed pain, calm and cooperative, skin intact
[2018-03-26 14:50] VITALS: BP 138/66
--- NOTE | 2018-03-26 14:50 | NUR ---
NURSE NOTES: Patient is transferred from ED. Alert and oriented X4. No acute distress/SOB noted. Put media monitor on. Patient is on room air. Vital signs stable. Inventory check done. Will continue plan of care.
[2018-03-26 15:00] VITALS: BP 140/90
--- NOTE | 2018-03-26 15:01 | NUR ---
NURSE NOTES: Paged Dr. Castle for admission orders.
[2018-03-26] MEDS ORDERED: HYDROcodone/Acetamin 10/325 tab ORAL PRN (15:15)
[2018-03-26] MEDS ORDERED: Promethazine/Codeine 5ml UD ORAL PRN ×2 (15:15→16:30)
[2018-03-26] MEDS ORDERED: Nitroglycerin Subl 0.4mg tab SL PRN (15:15)
[2018-03-26] MEDS ORDERED: Norco 5mg/325mg tab ORAL PRN (15:15)
[2018-03-26] MEDS ORDERED: Albuterol ud Inhalation HHN PRN ×2 (15:15→15:30)
--- NOTE | 2018-03-26 15:17 | NUR ---
NURSE NOTES: Received admission orders.
[2018-03-26 16:00] VITALS: BP 120/69
[2018-03-26] MEDS: Solu-MEDROL 40mg Inj IVP SCH (17:32)
[2018-03-26] MEDS ORDERED: cefTRIAXone 1 GM in D5W 55 ML IVPB SCH (18:30)
--- NOTE | 2018-03-26 19:40 | NUR ---
NURSE NOTES: Received pt. and report from BYRON Killian. Observe pt. resting in bed. shelter monitor is in placed, IV site intact, asymptomatic, and patent. Bed is in the lowest position and locked. Call light within reach. No acute distress noted at this time. Will continue plan of care.
--- NOTE | 2018-03-26 19:49 | NUR ---
HAND-OFF: Report given to BYRON Denny. Patient is in stable condition. No aucte distress/SOB noted. Endorsed plan of care.
[2018-03-26] MEDS: Albuterol/Ipratropium 3ml neb HHN SCH ×2 (19:50→23:00)
[2018-03-26 20:00] VITALS: BP 145/94
[2018-03-26] MEDS: Heparin 5000 units/ml inj SUBQ SCH (20:58)
[2018-03-26] MEDS: HYDROcodone/Acetamin 10/325 tab ORAL PRN (21:09)
--- NOTE | 2018-03-26 21:30 | History and Physical Report ---
DATE OF ADMISSION: 03/26/2018 CHIEF COMPLAINT: Pneumonia. HISTORY OF PRESENT ILLNESS: The patient is a pleasant 77-year-old female, who presented to the emergency room with complaints of cough, congestion, fevers, chills, and shortness of breath. According to the patient's family, there have been several members sick with upper respiratory tract infections. Several days ago, she began to develop worsening cough, congestion, fevers, chills, and shortness of breath. She took [id number] cough medicine without any improvement and because of worsening shortness of breath, presented to the emergency room. On evaluation there, she had x-ray evidence of pneumonia. Broad-spectrum IV antibiotics have been instituted. She also received a dose of intravenous steroids for possible COPD exacerbation. She is now admitted for further evaluation and care. PAST MEDICAL HISTORY: As above with history of asthma, hypertension, hypertensive heart disease, history of chronic DVT, and history of chronic lower back pain. PAST SURGICAL HISTORY: Includes knee replacement surgery. CURRENT MEDICATIONS: Reconciled and reviewed. ALLERGIES: Include penicillin. FAMILY HISTORY: Noncontributory. SOCIAL HISTORY: Negative for tobacco, ethanol, or drugs. REVIEW OF SYSTEMS: GENERAL: Positive for fevers and chills, but no night sweats. HEENT: No headaches or visual changes. CARDIOPULMONARY: Positive for shortness of breath, chest pain, congestion, and phlegm. GASTROINTESTINAL: No nausea or vomiting. GENITOURINARY: No urgency or frequency. MUSCULOSKELETAL: Positive for knee and back pain. NEUROLOGIC: No history of seizures. PHYSICAL EXAMINATION: VITAL SIGNS: Temperature was 99.3, pulse 102, respirations 23, and blood pressure 128/103. The patient is saturating 94% on room air. GENERAL: The patient is well developed, in no apparent distress. She is able to speak in full sentences. NECK: Supple. HEART: Regular rate and rhythm. LUNGS: Clear anteriorly. ABDOMEN: Soft, nontender, and nondistended. EXTREMITIES: Without clubbing, cyanosis, or edema. LABORATORY DATA: Laboratories show white count of 9, hemoglobin 10, hematocrit 32, and platelet count of 242,000. Sodium 134, potassium is 3.2, chloride 97, bicarbonate 28, BUN was 8, and creatinine was 0.9. Troponin was negative. Urine was clear. Chest x-ray shows possible patchy infiltrates. ASSESSMENT: This is a pleasant female admitted with complaints of shortness of breath, suspect secondary to community-acquired pneumonia, cannot rule out some component of asthma and asthma exacerbation. PLAN: 1. IV antibiotics. 2. Intravenous steroids. 3. ID, Pulmonary, and Cardiology evaluations. 4. We will follow up pending cultures. 5. We will hydrate gently and replace potassium. Amadeo Castle M.D. DR: CEDRICK JOB#: [id number] CC:
[2018-03-26] MEDS: Advair 100/50 Inhaler - 14 dose INH SCH (23:34)
[2018-03-27] VITALS: BP 148/87
[2018-03-27] MEDS: Albuterol/Ipratropium 3ml neb HHN SCH ×3 (03:00→10:36)
[2018-03-27 04:00] VITALS: BP 153/90
[2018-03-27] MEDS: Solu-MEDROL 40mg Inj IVP SCH (06:17)
--- NOTE | 2018-03-27 07:22 | NUR ---
HAND-OFF: Report given to BYRON Killian. Pt. is in stable condition.
--- NOTE | 2018-03-27 07:31 | NUR ---
NURSE NOTES: Received report from BYRON Denny. Patient is in stable condition. No acute distress/SOB noted. Will continue plan of care.
[2018-03-27 08:00] VITALS: BP 159/86
[2018-03-27] MEDS: Heparin 5000 units/ml inj SUBQ SCH (08:46)
[2018-03-27] MEDS ORDERED: dilTIAZem HCl CD 180mg cap ORAL SCH (09:00)
[2018-03-27 09:11] LABS: ALANINE AMINOTRANSFERASE 20 U/L (12-78); ALBUMIN 3.5 G/DL (3.4-5.0); ALBUMIN/GLOBULIN RATIO 0.7 (1.0-2.7); ALKALINE PHOSPHATASE 84 U/L (46-116); ANION GAP 14 mmol/L (5-15); ASPARTATE AMINO TRANSFERASE 27 U/L (15-37); BILIRUBIN,TOTAL 0.6 MG/DL (0.2-1.0); BLOOD UREA NITROGEN 12 mg/dL (7-18); CALCIUM 9.3 MG/DL (8.5-10.1); CARBON DIOXIDE 24 MMOL/L (21-32); CHLORIDE 98 MMOL/L (98-107); POTASSIUM 2.9 MMOL/L (3.5-5.1); SODIUM 136 MMOL/L (136-145)
--- NOTE | 2018-03-27 09:16 | General Progress Note ---
Assessment/Plan Problem List: (1) Pneumonia ICD Codes: J18.9 - Pneumonia, unspecified organism SNOMED: 038269956 (2) COPD exacerbation (3) Wheezing ICD Codes: R06.2 - Wheezing SNOMED: 73250545 (4) Low back pain ICD Codes: M54.5 - Low back pain SNOMED: 230561888 (5) Hypertension ICD Codes: I10 - Essential (primary) hypertension SNOMED: 84700141 Status: stable Assessment/Plan iv abx repeat cxr dc planning tomorrow Subjective ROS Limited/Unobtainable: No Constitutional: Reports: malaise, weakness HEENT: Reports: no symptoms Cardiovascular: Reports: no symptoms Respiratory: Reports: no symptoms Gastrointestinal/Abdominal: Reports: no symptoms Genitourinary: Reports: no symptoms Neurologic/Psychiatric: Reports: no symptoms Endocrine: Reports: no symptoms Hematologic/Lymphatic: Reports: no symptoms Allergies: Coded Allergies: AMOXICILLIN (Verified Allergy, Mild, 03/04/13) PENICILLINS (Verified Allergy, Mild, Hives/DIFFICULTY BREATHING, 10/29/17) All Systems: reviewed and negative except above Subjective states she feels "100% better" no cp/sob. off o2. no fevers. low k noted Objective Last 24 Hour Vital Signs Date Time Temp Pulse Resp B/P (MAP) Pulse Ox O2 Delivery O2 Flow Rate FiO2 03/27/18 08:45 97 159/86 03/27/18 08:00 97.7 97 20 159/86 (110) 96 03/27/18 07:24 Room Air 21 03/27/18 07:24 Room Air 03/27/18 07:23 104 22 Room Air 03/27/18 04:00 105 03/27/18 04:00 97.6 105 18 153/90 (111) 95 03/27/18 03:07 Room Air 21 03/27/18 03:07 Room Air 21 03/27/18 00:00 97.0 98 18 148/87 (107) 100 03/27/18 00:00 72 03/26/18 23:42 101 20 97 Room Air 21 03/26/18 23:42 101 20 97 Room Air 21 03/26/18 23:34 101 20 97 Room Air 21 03/26/18 23:34 101 20 97 Room Air 21 03/26/18 21:00 Room Air 03/26/18 20:03 84 18 100 Room Air 21 03/26/18 20:00 97.0 95 18 145/94 (111) 100 03/26/18 20:00 103 03/26/18 19:53 83 18 Room Air 21 03/26/18 19:53 83 18 100 Room Air 21 03/26/18 16:00 88 03/26/18 16:00 98.8 91 23 120/69 (86) 96 03/26/18 15:21 Room Air 03/26/18 15:02 97 03/26/18 15:00 98.6 80 20 140/90 (107) 94 03/26/18 14:50 98.8 102 23 138/66 98 Room Air 21 03/26/18 14:45 98.8 102 23 138/66 98 Room Air 03/26/18 14:32 99.3 03/26/18 13:06 128/103 03/26/18 12:11 99.3 99 22 143/83 95 Room Air 03/26/18 10:20 103 29 03/26/18 10:20 99.3 91 29 148/62 91 Room Air 03/26/18 10:14 96 18 100 Room Air 21 03/26/18 10:02 102 20 Room Air 21 03/26/18 10:02 36 03/26/18 10:02 18 98 Room Air 21 03/26/18 09:52 99.3 107 18 173/79 97 Room Air Intake and Output 03/26/18 03/27/18 19:00 07:00 Intake Total 75 ml 825 ml Output Total 500 ml Balance 75 ml 325 ml Intake IV Total 75 ml 825 ml Output Urine Total 500 ml # Voids 1 Laboratory Tests 03/26/18 10:10: White Blood Count 9.1, Red Blood Count 3.56L, Hemoglobin 10.9L, Hematocrit 32.7L , Mean Corpuscular Volume 92, Mean Corpuscular Hemoglobin 30.5, Mean Corpuscular Hemoglobin Concent 33.2, Red Cell Distribution Width 12.9, Platelet Count 242, Mean Platelet Volume 9.0, Neutrophils (%) (Auto) 82.0H, Lymphocytes ( %) (Auto) 5.1L, Monocytes (%) (Auto) 6.9, Eosinophils (%) (Auto) 4.6H, Basophils (%) (Auto) 1.5, Prothrombin Time 9.0L, Prothromb Time International Ratio 0.8L, Activated Partial Thromboplast Time 27, Sodium Level 134L, Potassium Level 3.2L, Chloride Level 97L, Carbon Dioxide Level 28, Anion Gap 9, Blood Urea Nitrogen 8, Creatinine 0.9, Estimat Glomerular Filtration Rate , Glucose Level 166H, Lactic Acid Level 1.20, Calcium Level 9.0, Total Bilirubin 0.5, Aspartate Amino Transf (AST/SGOT) 28, Alanine Aminotransferase (ALT/SGPT) 17, Alkaline Phosphatase 83, Total Creatine Kinase 222, Troponin I 0.000, Pro-B- Type Natriuretic Peptide 149H, Total Protein 8.1, Albumin 3.6, Globulin 4.5, Albumin/Globulin Ratio 0.8L 03/26/18 10:30: Urine Color Pale yellow, Urine Appearance Clear, Urine pH 8, Urine Specific [place] 1.010, Urine Protein 3+H, Urine Glucose (UA) Negative, Urine Ketones Negative, Urine Blood 3+H, Urine Nitrite Negative, Urine Bilirubin Negative, Urine Urobilinogen Normal, Urine Leukocyte Esterase Negative, Urine RBC 0-2, Urine WBC 0, Urine Squamous Epithelial Cells None, Urine Bacteria None 03/27/18 07:55: Sodium Level 136, Potassium Level 2.9L, Chloride Level 98, Carbon Dioxide Level 24, Anion Gap 14, Blood Urea Nitrogen 12, Creatinine 1.0, Estimat Glomerular Filtration Rate , Glucose Level 331#H, Calcium Level 9.3, Total Bilirubin 0.6, Aspartate Amino Transf (AST/SGOT) 27, Alanine Aminotransferase (ALT/SGPT) 20, Alkaline Phosphatase 84, Total Protein 8.2, Albumin 3.5, Globulin 4.7, Albumin/ Globulin Ratio 0.7L Height (Feet): 5 Height (Inches): 2.00 Weight (Pounds): 205 General Appearance: WD/WN, alert Neck: supple Cardiovascular: regular rhythm Respiratory/Chest: lungs clear Abdomen: normal bowel sounds, non tender, soft, no organomegaly Edema: no edema noted Arm (L), no edema noted Arm (R), no edema noted Leg (L), no edema noted Leg (R), no edema noted Pedal (L), no edema noted Pedal (R), no edema noted Generalized Amadeo Castle MD Mar 27, 2018 09:16
[2018-03-27] MEDS: HYDROcodone/Acetamin 10/325 tab ORAL PRN (09:29)
[2018-03-27] MEDS: Advair 100/50 Inhaler - 14 dose INH SCH (10:00)
[2018-03-27 12:00] VITALS: BP 145/77
--- NOTE | 2018-03-27 13:08 | NUR ---
NURSE NOTES: Discharge instruction given and patient verbalized understanding. No acute distress/SOB noted. Awaiting daughter for pick-up.
--- NOTE | 2018-03-27 13:37 | NUR ---
NURSE NOTES: Removed potline monitor and IV line. Iv site clean, skin intact and no bleeding noted. No acute distress/SOB noted. Inventory check done. Repeated discharge education and patient verbalized understanding. Patient is discharged via private car with daughter.
--- NOTE | 2018-03-28 09:12 | Diagnostic Imaging Report ---
Indication: Cough Technique: One view of the chest Comparison: 01/24/2018 Findings: Heart is borderline enlarged. The aorta is tortuous ectatic and calcified. There is mild interstitial prominence which appears similar to previous exam. The pleural spaces are clear. No dense consolidation demonstrated Impression: Borderline cardiomegaly Mild interstitial prominence, similar to 03/26/2018, may reflect chronic interstitial disease or mild interstitial congestion, among other possibilities.
--- NOTE | 2018-03-30 09:06 | Discharge Summary ---
Discharge Summary Discharge Summary _ DATE OF ADMISSION: 03/26/2018 DATE OF DISCHARGE: 03/27/2018 DISCHARGED BY: Dr. Castle REASON FOR ADMISSION: 77 years old female with past medical history of hypertensive heart disease, DVT, chronic low back pain, presented to emergency department complaining of cough, congestion, fever , chills and shortness of breath. According to patient and family, several members of family were sick with upper respiratory infection. Patient started to develop worsening cough with congestion , fever, chills and shortness of breath. She took [id number]-onfwmts antitussive medication without improvement. Due to worsening of shortness of breath and underlying COPD/asthma, patient presented to emergency department . Upon evaluation laboratory workup revealed no leukocytosis , hemoglobin 10.9 hematocrit 32.7. Sodium 134 ,potassium 3.2. Troponin negative. ECG revealed sinus rhythm no acute ischemic changes. Pro BNP 149. Stable renal parameters and LFT. Urinalysis +3 protein , but no evidence of UTI. Influenza screen test was negative. Chest x-ray showed patchy infiltrates suggestive of possibility of pneumonia. Patient admitted with shortness of breath probably secondary to community- acquired pneumonia , COPD/asthma exacerbation , hypokalemia. HOSPITAL COURSE: Patient admitted to telemetry floor. Supplemental oxygen provided to keep pulse oximetry above 90%. Pulmonary toilet provided with nebulizing therapy around the clock and as needed. Patient was started on intravenous steroids with gradual tapering down. Patient started on Advair and Spiriva inhalers. Patient was started on empiric antibiotic. Blood cultured were negative. Antitussive provided as needed Venous Doppler bilateral lower extremity revealed no evidence of acute DVT. DVT prophylaxis provided. Patient was gently hydrated. Potassium was replaced. Blood pressure was managed with Cardizem . GI prophylaxis provided. Pain management addressed as needed. Follow up chest x-ray revealed borderline cardiomegaly and mild interstitial prominence Patient clinically stabilized. Pulse oximetry was stable on room air. Wheezing resolved. Patient was stable for discharge home . FINAL DIAGNOSES: Community-acquired pneumonia COPD/asthma exacerbation Hypertension Low back pain Hypokalemia DISCHARGE MEDICATIONS: See Medication Reconciliation list. DISCHARGE INSTRUCTIONS: Patient discharged home. Outpatient follow-up with a primary care provider in 1 week. I have been assigned to dictate discharge summary for this account. I was not involved in the patient's management. Peri Rose NP Mar 30, 2018 09:06
== END 2018-03-27 13:37 | disposition home or self-care (01) | DRG 190 ==
LOC: EMR 10:03 → EDBEDREQ 10:25 → 2E 10:56 → EDBEDREQ 12:01 → 2E 17:13
DX: J44.0 Chronic obstructive pulmonary disease with (acute) lower respiratory infection (principal); J18.9 Pneumonia, unspecified organism; J44.1 Chronic obstructive pulmonary disease with (acute) exacerbation; G89.29 Other chronic pain; M54.5 Low back pain; E87.6 Hypokalemia; I11.9 Hypertensive heart disease without heart failure; Z86.718 Personal history of other venous thrombosis and embolism; Z96.659 Presence of unspecified artificial knee joint; Z88.0 Allergy status to penicillin
CPT/HCPCS: 36415; 71045; 80053; 81003; 82550; 83605; 83880; 84484; 85025; 85610; 85730; 86710; 87040; 87081; 93005; 93970; 94640; 94664; 96374; 99285; J7620; J8499

== ENCOUNTER 2018-11-19 18:32 | Emergency (ER) | payer MEDICARE, OTHER ==
[~2018-11-19] VITALS: Ht 152.4 cm; Wt 72.6 kg
[2018-11-19 18:36] VITALS: BP 176/84
--- NOTE | 2018-11-19 18:38 | NUR ---
ED Nurse Note: Patient brought in by family member from home due to headache and feeling dizzy x 2 weeks. Per pt, slipped and fell 2 weeks ago; denies any injury at the time. Pt reports worsening of headache. Pt rates pain at 7/10; A&O x4, V/S noted with no s/s of acute distress noted at this time. Pt is connected to the quality assurance monitor body, ERMD at bedside evaluating the pt.
[2018-11-19] MEDS ORDERED: Albuterol/Ipratropium 3ml neb HHN ONE (18:45)
--- NOTE | 2018-11-19 18:50 | NUR ---
ED Nurse Note: Patient taken down for CT scan.
--- NOTE | 2018-11-19 19:14 | NUR ---
HAND-OFF: Report given to BYRON Abraham.
--- NOTE | 2018-11-19 19:20 | NUR ---
ED Nurse Note: Recieved report from am nurse to resume care, pt in bed awake, alert and oriented x 4, pt is on cardiac monitoring, md at bedside, will resume orders and monitor for any changes and med effectiveness, pt noted with mild sob at rest.
[2018-11-19] MEDS ORDERED: HYDROcodone/Acetamin 5/325 tab ORAL ONE (19:30)
--- NOTE | 2018-11-19 19:38 | Diagnostic Imaging Report ---
EXAM: CT Head Without Intravenous Contrast CLINICAL HISTORY: PAIN TECHNIQUE: Axial computed tomography images of the head/brain without intravenous contrast. CTDI is 0.15, 70.38 mGy and DLP is 1336 mGy-cm. One or more of the following dose reduction techniques were used: automated exposure control, adjustment of the mA and/or kV according to patient size, use of iterative reconstruction technique. COMPARISON: CT 09/05/2017, MRI 09/06/2017 FINDINGS: Brain: No acute intracranial hemorrhage, large hypodensity, or significant mass effect. Nonspecific areas of hypoattenuation in the periventricular white matter likely represent the sequela of chronic small vessel ischemic disease. Ventricles: Ventricular and sulcal prominence commensurate with the patient's age. Bones/joints: Unremarkable. No acute fracture. Soft tissues: Unremarkable. Sinuses: Unremarkable. Mastoid air cells: Unremarkable. IMPRESSION: No acute intracranial abnormality.
[2018-11-19 19:45] VITALS: BP 169/124
[2018-11-19 19:47] LABS: BASOPHILS % (AUTO) 1.3 % (0.0-2.0); EOSINOPHILS % (AUTO) 8.4 % (0.0-3.0); HEMATOCRIT 32.1 % (37.0-47.0); HEMOGLOBIN 10.7 G/DL (12.0-16.0); LYMPHOCYTES % (AUTO) 23.5 % (20.0-45.0); MEAN CORPUSCULAR VOLUME 92 FL (80-99); MONOCYTES % (AUTO) 9.4 % (1.0-10.0); NEUTROPHILS % (AUTO) 57.4 % (45.0-75.0); PLATELET COUNT 249 K/UL (150-450); RED BLOOD COUNT 3.48 M/UL (4.20-5.40); RED CELL DISTRIBUTION WIDTH 12.7 % (11.6-14.8); WHITE BLOOD COUNT 6.8 K/UL (4.8-10.8)
[2018-11-19 19:58] LABS: ANION GAP 10 mmol/L (5-15); BLOOD UREA NITROGEN 11 mg/dL (7-18); CALCIUM 9.1 MG/DL (8.5-10.1); CARBON DIOXIDE 25 MMOL/L (21-32); CHLORIDE 104 MMOL/L (98-107); CREATININE 0.9 MG/DL (0.55-1.30); POTASSIUM 3.7 MMOL/L (3.5-5.1); SODIUM 139 MMOL/L (136-145)
[2018-11-19 20:08] LABS: ALANINE AMINOTRANSFERASE 16 U/L (12-78); ALBUMIN 3.7 G/DL (3.4-5.0); ALBUMIN/GLOBULIN RATIO 0.8 (1.0-2.7); ALKALINE PHOSPHATASE 86 U/L (46-116); ASPARTATE AMINO TRANSFERASE 20 U/L (15-37); BILIRUBIN,TOTAL 0.6 MG/DL (0.2-1.0)
[2018-11-19] MEDS ORDERED: Dexamethasone 4mg/ml vial IVP ONE (20:15)
--- NOTE | 2018-11-19 20:51 | Emergency Room Report ---
History of Present Illness General Chief Complaint: Multiple Trauma/Fall Source: Patient, Medical Record Present Illness HPI Patient is a 78-year-old female presents after increased knee pain after a fall. Patient reportedly had fallen approximately 2 weeks ago. She reports having persistent pain to her left knee as well as some pain to her head. She denies loss of consciousness. She reports feeling somewhat dizzy. She denies any vomiting.Patient reports having some difficulty breathing with exertion. She denies any chest pain or discomfort. She denies any change in knee swelling over the past few weeks. She previously been seen by orthopedics. she reports having prior knee replacement to the right leg. Denies any fever. Allergies: Coded Allergies: AMOXICILLIN (Verified Allergy, Mild, 03/04/13) PENICILLINS (Verified Allergy, Mild, Hives/DIFFICULTY BREATHING, 10/29/17) Patient History Past Medical History: see triage record Past Surgical History: none Reviewed Nursing Documentation: PMH: Agreed; PSxH: Agreed Nursing Documentation-PMH Past Medical History: No History, Except For Hx Cardiac Problems: Yes Hx Hypertension: Yes Hx Asthma: No Hx COPD: Yes Hx Diabetes: Yes - borderline Hx Cancer: No Hx Gastrointestinal Problems: No Hx Neurological Problems: No Hx Dizziness: Yes Review of Systems All Other Systems: negative except mentioned in HPI Physical Exam Vital Signs Date Time Temp Pulse Resp B/P (MAP) Pulse Ox O2 Delivery O2 Flow Rate FiO2 11/19/18 18:35 98.1 88 16 176/81 (112) 96 Room Air 11/19/18 19:08 21 Sp02 EP Interpretation: reviewed, normal General Appearance: alert, GCS 15, non-toxic, obese, Chronically Ill Head: atraumatic Eyes: bilateral eye PERRL ENT: normal voice Neck: normal inspection, full range of motion, supple, no bony tend Respiratory: normal inspection, no retraction Cardiovascular #1: regular rate, rhythm, no edema Gastrointestinal: normal inspection, normal bowel sounds, non tender, soft, no guarding, no hernia Genitourinary: no CVA tenderness Musculoskeletal: normal inspection, back normal, normal range of motion, other - left knee swelling with ballotable patella, decreased rom Neurologic: normal inspection, alert, oriented x3, responsive, web user experience strategist III-XII nml as tested, speech normal Psychiatric: normal inspection, judgement/insight normal, mood/affect normal Medical Decision Making Diagnostic Impression: Primary Impression: Arthritis pain Additional Impressions: COPD (chronic obstructive pulmonary disease) Vertigo ER Course Patient presented for increased left lower extremity pain differential diagnosis include was not limited to arthritis, contusion, fracture among others. Patient reports having long-standing pain which is consistent with arthritis. She was told previously that she needs to have a surgery performed. Patient was noted to have prior history of COPD. Breathing treatment. Patient was initially noted to have some wheezing. Patient's laboratory testing was unremarkable. CT imaging of the head was performed due to the patient's dizziness and inability to ambulate. CT of the head read by radiology showed chronic degenerative changes without any evidence of acute intracranial hemorrhage or CVA. Patient was noted to have some chronic pain to the left knee. Patient was given IV steroids as well as breathing treatment. She is noted to have some improvement subsequently. Patient is noted to have some continued difficulty with unsteadiness. She was also noted to have some persistent difficulty breathing with minimal exertion. Patient was advised risk benefits and alternatives of leaving AMA including worsening condition and loss of current lifestyle. Patient states that she wants to leave and does not want to remain in the hospital despite the risk. Patient was advised that she can return at any time. This report is dictated with [employer] fruit receiver software which may occasionally lead to discrepancies related to use of this software. Labs Test 11/19/18 19:30 White Blood Count 6.8 K/UL (4.8-10.8) Red Blood Count 3.48 M/UL (4.20-5.40) Hemoglobin 10.7 G/DL (12.0-16.0) Hematocrit 32.1 % (37.0-47.0) Mean Corpuscular Volume 92 FL (80-99) Mean Corpuscular Hemoglobin 30.8 PG (27.0-31.0) Mean Corpuscular Hemoglobin Concent 33.4 G/DL (32.0-36.0) Red Cell Distribution Width 12.7 % (11.6-14.8) Platelet Count 249 K/UL (150-450) Mean Platelet Volume 11.1 FL (6.5-10.1) Neutrophils (%) (Auto) 57.4 % (45.0-75.0) Lymphocytes (%) (Auto) 23.5 % (20.0-45.0) Monocytes (%) (Auto) 9.4 % (1.0-10.0) Eosinophils (%) (Auto) 8.4 % (0.0-3.0) Basophils (%) (Auto) 1.3 % (0.0-2.0) Sodium Level 139 MMOL/L (136-145) Potassium Level 3.7 MMOL/L (3.5-5.1) Chloride Level 104 MMOL/L (98-107) Carbon Dioxide Level 25 MMOL/L (21-32) Anion Gap 10 mmol/L (5-15) Blood Urea Nitrogen 11 mg/dL (7-18) Creatinine 0.9 MG/DL (0.55-1.30) Estimat Glomerular Filtration Rate mL/min (>60) Glucose Level 152 MG/DL (74-106) Calcium Level 9.1 MG/DL (8.5-10.1) Total Bilirubin 0.6 MG/DL (0.2-1.0) Aspartate Amino Transf (AST/SGOT) 20 U/L (15-37) Alanine Aminotransferase (ALT/SGPT) 16 U/L (12-78) Alkaline Phosphatase 86 U/L (46-116) Troponin I 0.000 ng/mL (0.000-0.056) Pro-B-Type Natriuretic Peptide 91 pg/mL (0-125) Total Protein 8.1 G/DL (6.4-8.2) Albumin 3.7 G/DL (3.4-5.0) Globulin 4.4 g/dL Albumin/Globulin Ratio 0.8 (1.0-2.7) EKG Diagnostic Results Rate: normal Rhythm: NSR ST Segments: other - nonspecific st changes Last Vital Signs Date Time Temp Pulse Resp B/P (MAP) Pulse Ox O2 Delivery O2 Flow Rate FiO2 11/19/18 20:46 169/126 11/19/18 19:08 77 18 99 Room Air 21 11/19/18 18:36 98.0 Status: improved Disposition: AGAINST MEDICAL ADVICE Condition: Stable Scripts Hydrocodone/Acetaminophen (Hydrocodon-Acetaminophn 10-325) 1 Each Tablet 1 TAB ORAL Q8H PRN for For Pain, #10 TAB 0 Refills Prov: Deangelo Campos MD 11/19/18 Meclizine Hcl* (MECLIZINE*) 25 Mg Tablet 25 MG ORAL THREE TIMES A DAY, #20 TAB Prov: Deangelo Campos MD 11/19/18 Diclofenac Sodium (VOLTAREN) 100 Gm Gel..gram. 5 GM TP DAILY, #100 GM Prov: Deangleo Campos MD 11/19/18 Referrals: Amadeo Castle MD (PCP) Deangelo Campos MD Nov 19, 2018 20:51
[2018-11-19] MEDS ORDERED: MECLIZINE HCL25 MG ORAL (20:53)
[2018-11-19] MEDS ORDERED: VOLTAREN100 G1 TP (20:53)
[2018-11-19] MEDS ORDERED: NORCO 10/3251 EA ORAL (20:53)
[2018-11-19 21:00] VITALS: BP 166/79
--- NOTE | 2018-11-19 21:00 | NUR ---
ED Nurse Note: Pt medicated as ordered, meds given for pain effective and pt tolerated iv meds without complications, pt also medicated for elevated b/p and meds effective, pt daughter at bedside and assisted with bedside commode use, pt with increased sob and weakness when used but is very strong with decision to go home and not be admitted. MD at bedside informing pt of risk and benefits, will prepare for discharge to home, pt is going AMA.
--- NOTE | 2018-11-19 21:20 | NUR ---
ER DISCHARGE NOTE: Patient is cleared to be discharged per ERMD, pt is aox4, on room air, with stable vital signs. pt was given dc and prescription instructions, pt was able to verbalize understanding, pt id band and iv site removed without complications. pt is able to ambulate with steady gait. pt took all belongings. Pt is leaving AMA, form signed.
[2018-11-19 21:25] VITALS: BP 166/79
== END 2018-11-19 21:25 | disposition left against medical advice (07) ==
LOC: EMR 19:15
DX: M13.862 Other specified arthritis, left knee (principal); J44.9 Chronic obstructive pulmonary disease, unspecified; R42 Dizziness and giddiness; I10 Essential (primary) hypertension; R73.03 Prediabetes; Z88.0 Allergy status to penicillin; Z88.1 Allergy status to other antibiotic agents; Z96.651 Presence of right artificial knee joint; R51 Headache
CPT/HCPCS: 36415; 70450; 80053; 83880; 84484; 85025; 94640; 94664; 96365; 96375; 99284; J0360; J1100; J7620

== ENCOUNTER 2019-01-05 05:18 | Emergency (ER) | payer MEDICARE, OTHER ==
[~2019-01-05] VITALS: Ht 154.9 cm; Wt 90.7 kg
[~2019-01-05 05:18] MED LIST changes: +MECLIZINE HCL25 MG ORAL; +NORCO 10/3251 EA ORAL; +VOLTAREN100 G1 TP
[2019-01-05 05:30] VITALS: BP 190/105
--- NOTE | 2019-01-05 05:30 | NUR ---
Note undone in EDM - 01/05/19 at 0718 by GAMALIEL ED Nurse Note: pt was wheeled in to ED with W/C with C/O right sided headache for the last 4 days. accompanied by daughter. pt denies nausea vomiting. pt Bp is 186/104. pt states she has been compliant with her BP meds. pt unable to provide the names of medication she is currently taking for HTN. pt is alert x4
--- NOTE | 2019-01-05 05:41 | Emergency Room Report ---
History of Present Illness General Chief Complaint: Headache Source: Patient Present Illness HPI Patient 78-year-old female presents after increased right-sided headache. Patient had some prior history of similar symptoms in the past. She had prior history of hypertension. She was noted to have some chronic lung disease. Patient had previously been at this facility with similar symptoms. She denies any recent trauma. 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 She is currently scheduled for hip replacement surgery. She denies any fever. Allergies: Coded Allergies: AMOXICILLIN (Verified Allergy, Mild, 03/04/13) PENICILLINS (Verified Allergy, Mild, Hives/DIFFICULTY BREATHING, 10/29/17) Patient History Past Medical History: see triage record Reviewed Nursing Documentation: PMH: Agreed; PSxH: Agreed Nursing Documentation-PMH Past Medical History: No History, Except For Hx Cardiac Problems: Yes Hx Hypertension: Yes Hx Asthma: No Hx COPD: Yes Hx Diabetes: Yes - borderline Hx Cancer: No Hx Gastrointestinal Problems: No Hx Neurological Problems: No Hx Dizziness: Yes Review of Systems All Other Systems: negative except mentioned in HPI Physical Exam Vital Signs Date Time Temp Pulse Resp B/P (MAP) Pulse Ox O2 Delivery O2 Flow Rate FiO2 01/05/19 05:20 97.3 89 15 190/84 (119) 96 01/05/19 05:30 Room Air Sp02 EP Interpretation: reviewed, normal General Appearance: normal inspection, well appearing, no apparent distress, alert, GCS 15, obese, Chronically Ill Head: atraumatic ENT: normal ENT inspection, hearing grossly normal, normal voice Neck: normal inspection, full range of motion, supple, no bony tend Respiratory: normal inspection, no respiratory distress, no retraction, rales Cardiovascular #1: normal inspection, no edema Gastrointestinal: normal inspection, normal bowel sounds, non tender, soft, no guarding, no hernia Genitourinary: no CVA tenderness Musculoskeletal: normal inspection, back normal, other - Moving all extremities , arthritic changes to the joints. Neurologic: normal inspection, alert, oriented x3, responsive, seat joiner chainstitch III-XII nml as tested, speech normal Psychiatric: normal inspection, judgement/insight normal, mood/affect normal Skin: no rash Medical Decision Making Diagnostic Impression: Primary Impression: Headache Additional Impressions: COPD (chronic obstructive pulmonary disease) Hypertension ER Course Patient presented for headache. Differential diagnoses included but was not limited to skull fracture, subarachnoid hemorrhage, meningitis, aneurysm, mass lesion, intracranial hemorrhage.Because of complexity of patient's case laboratory tests and imaging studies were ordered. Patient did have what appears to be headache related to her chronic hypertension. Patient reportedly took her blood pressure medications. She given breathing treatment for some COPD. Blood pressure was noted to be improved. She was given oral potassium for mild hypokalemia. CT of the head read by radiology showed no evidence of acute intracranial hemorrhage. Patient was noted to have some calcifications to the vertebral artery. This is unchanged from previous exams. Patient denies any current vertigo sensation. Patient does appear to have some component of anxiety. Patient is advised to follow-up with Dr. Castle for further evaluation of headaches. She was advised to return if worse. Labs Test 01/05/19 05:45 01/05/19 05:52 Prothrombin Time 10.2 SEC (9.30-11.50) Prothromb Time International Ratio 1.0 (0.9-1.1) Activated Partial Thromboplast Time 27 SEC (23-33) Sodium Level 141 MMOL/L (136-145) Potassium Level 3.1 MMOL/L (3.5-5.1) Chloride Level 104 MMOL/L (98-107) Carbon Dioxide Level 30 MMOL/L (21-32) Anion Gap 7 mmol/L (5-15) Blood Urea Nitrogen 11 mg/dL (7-18) Creatinine 0.9 MG/DL (0.55-1.30) Estimat Glomerular Filtration Rate mL/min (>60) Glucose Level 157 MG/DL (74-106) Calcium Level 9.3 MG/DL (8.5-10.1) White Blood Count 6.6 K/UL (4.8-10.8) Red Blood Count 3.41 M/UL (4.20-5.40) Hemoglobin 10.4 G/DL (12.0-16.0) Hematocrit 31.1 % (37.0-47.0) Mean Corpuscular Volume 91 FL (80-99) Mean Corpuscular Hemoglobin 30.5 PG (27.0-31.0) Mean Corpuscular Hemoglobin Concent 33.5 G/DL (32.0-36.0) Red Cell Distribution Width 12.9 % (11.6-14.8) Platelet Count 231 K/UL (150-450) Mean Platelet Volume 9.7 FL (6.5-10.1) Neutrophils (%) (Auto) 53.6 % (45.0-75.0) Lymphocytes (%) (Auto) 22.3 % (20.0-45.0) Monocytes (%) (Auto) 8.9 % (1.0-10.0) Eosinophils (%) (Auto) 13.9 % (0.0-3.0) Basophils (%) (Auto) 1.3 % (0.0-2.0) Last Vital Signs Date Time Temp Pulse Resp B/P (MAP) Pulse Ox O2 Delivery O2 Flow Rate FiO2 01/05/19 05:30 97.3 81 15 190/105 96 Room Air Status: improved Disposition: HOME, SELF-CARE Condition: Stable Scripts Meclizine Hcl* (MECLIZINE*) 25 Mg Tablet 25 MG ORAL THREE TIMES A DAY, #30 TAB Prov: Deangelo Campos MD 01/05/19 Hydrocodone Bit/Acetaminophen 5-325* (NORCO 5-325*) 1 Each Tablet 1 TAB ORAL Q6H PRN for For Pain, #10 TAB 0 Refills Prov: Deangelo Campos MD 01/05/19 Deangelo Campos MD Jan 05, 2019 05:41
[2019-01-05] MEDS ORDERED: Albuterol/Ipratropium 3ml neb HHN ONE (05:45)
[2019-01-05] MEDS ORDERED: HYDROcodone/Acetamin 10/325 tab ORAL ONE (05:45)
--- NOTE | 2019-01-05 05:47 | NUR ---
ED Nurse Note: blood sample sent down to lab
[2019-01-05 05:59] LABS: BASOPHILS % (AUTO) 1.3 % (0.0-2.0); EOSINOPHILS % (AUTO) 13.9 % (0.0-3.0); HEMATOCRIT 31.1 % (37.0-47.0); HEMOGLOBIN 10.4 G/DL (12.0-16.0); LYMPHOCYTES % (AUTO) 22.3 % (20.0-45.0); MEAN CORPUSCULAR VOLUME 91 FL (80-99); MONOCYTES % (AUTO) 8.9 % (1.0-10.0); NEUTROPHILS % (AUTO) 53.6 % (45.0-75.0); PLATELET COUNT 231 K/UL (150-450); RED BLOOD COUNT 3.41 M/UL (4.20-5.40); RED CELL DISTRIBUTION WIDTH 12.9 % (11.6-14.8); WHITE BLOOD COUNT 6.6 K/UL (4.8-10.8)
--- NOTE | 2019-01-05 06:05 | NUR ---
ED Nurse Note: pt geovani (Sheila) # [phone]
[2019-01-05 06:08] LABS: ANION GAP 7 mmol/L (5-15); BLOOD UREA NITROGEN 11 mg/dL (7-18); CALCIUM 9.3 MG/DL (8.5-10.1); CARBON DIOXIDE 30 MMOL/L (21-32); CHLORIDE 104 MMOL/L (98-107); CREATININE 0.9 MG/DL (0.55-1.30); POTASSIUM 3.1 MMOL/L (3.5-5.1); SODIUM 141 MMOL/L (136-145)
[2019-01-05 06:21] LABS: ALANINE AMINOTRANSFERASE 17 U/L (12-78); ALBUMIN 3.5 G/DL (3.4-5.0); ALBUMIN/GLOBULIN RATIO 0.8 (1.0-2.7); ALKALINE PHOSPHATASE 89 U/L (46-116); ASPARTATE AMINO TRANSFERASE 18 U/L (15-37); BILIRUBIN,TOTAL 0.5 MG/DL (0.2-1.0)
--- NOTE | 2019-01-05 06:22 | NUR ---
ED Nurse Note: left for head ct
--- NOTE | 2019-01-05 06:51 | NUR ---
ED Nurse Note: back from ct
[2019-01-05] MEDS ORDERED: NORCO 5-325 TA1 EACH ORAL (06:53)
[2019-01-05] MEDS ORDERED: Metoclopramide 10mg/2ml Inj IVP ONE (07:00)
[2019-01-05] MEDS ORDERED: MECLIZINE HCL25 MG ORAL (07:00)
--- NOTE | 2019-01-05 07:03 | Diagnostic Imaging Report ---
Indications: Headache for one day Technique: Spiral acquisitions obtained through the brain. Angled axial and coronal 5 x 5 mm slices were reconstructed. Total dose length product 1426 mGycm. CTDI vol(s) 62 mGy. Dose reduction achieved using automated exposure control Comparison: 11/19/2018 Findings: There is age-related enlargement of the ventricles and extra axial CSF spaces. There is periventricular deep white matter low-attenuation, consistent with chronic microvascular ischemic changes. Visualized orbits and sinuses are unremarkable. The calvarium is intact. 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 There is no significant interim change Impression: Chronic and age-related changes Negative for acute intracranial bleed or mass effect This agrees with the preliminary interpretation provided overnight by [facility] telerad[facility] service. The CT scanner at [facility] is accredited by the [employer] and the scans are performed using protocols designed to limit radiation exposure to as low as reasonably achievable to attain images of sufficient resolution adequate for diagnostic evaluation.
[2019-01-05 07:16] VITALS: BP 156/84
--- NOTE | 2019-01-05 07:16 | NUR ---
ER DISCHARGE NOTE: Patient is cleared to be discharged per ERMD, pt is aox4, on room air, with stable vital signs. pt was given dc and prescription instructions, pt was able to verbalize understanding, pt id band and iv site removed without complications. . pt took all belongings. pt daughter joseph is called and is currently on the way to pick pt up. pt is waiting on w/c at waiting room.
--- NOTE | 2019-01-05 07:16 | NUR ---
Note merari in EDM - 01/05/19 at 0723 by GAMALIEL ER DISCHARGE NOTE: Patient is cleared to be discharged per ERMD, pt is aox4, on room air, with stable vital signs. pt was given dc and prescription instructions, pt was able to verbalize understanding, pt id band and iv site removed without complications. pt is able to ambulate with steady gait. pt took all belongings.
== END 2019-01-05 17:16 | disposition home or self-care (01) ==
LOC: EMR 05:42
DX: R51 Headache (principal); J44.9 Chronic obstructive pulmonary disease, unspecified; I10 Essential (primary) hypertension; Z88.0 Allergy status to penicillin; Z88.1 Allergy status to other antibiotic agents
CPT/HCPCS: 36415; 70450; 80053; 84443; 84484; 85025; 85610; 85651; 85730; 94640; 94664; 96374; 99284; J2765; J7620; J8499

== ENCOUNTER 2019-01-27 15:13 | Inpatient (IN) | payer MEDICARE, OTHER ==
[~2019-01-27] VITALS: Ht 154.9 cm; Wt 118.4 kg
[~2019-01-27 15:13] MED LIST changes: +NORCO 5-325 TA1 EACH ORAL
[2019-01-27 15:30] VITALS: BP 136/84
--- NOTE | 2019-01-27 15:50 | NUR ---
Note merari in EDM - 01/27/19 at 1758 by TRINH ED Nurse Note: Patient walked into ED accompanied by mom c/o cough and dizziness that has been an on going issue for the past 3 days. patient was was just recently discharged here 3 days ago, at time of arrival patient is wheezing, o2 sat at 100% however is tachypnic. patient is alert and oriented x4, multiple staff have attempted to start IV on patient, patient has 2 IV sites on bilateral hands 22 gauge each, patient does not complain of pain. patient placed on a quality assurance monitor chassis, will continue to monitor
--- NOTE | 2019-01-27 15:55 | NUR ---
ED Nurse Note: Patient walked into ED accompanied by daughter c/o cough and dizziness that has been an on going issue for the past 3 days. patient was was just recently discharged here 3 days ago, at time of arrival patient is wheezing, o2 sat at 100% however is tachypnic. patient is alert and oriented x4, multiple staff have attempted to start IV on patient, patient has 2 IV sites on bilateral hands 22 gauge each, patient does not complain of pain. patient placed on a phototypesetting equipment monitor, will continue to monitor
[2019-01-27] MEDS: Albuterol ud Inhalation HHN SCH ×3 (16:02→16:30)
[2019-01-27] MEDS: Ipratropium 0.02% Inh Soln 2.5ml UD HHN SCH ×3 (16:02→16:30)
[2019-01-27 16:10] LABS: BASOPHILS % (AUTO) 1.3 % (0.0-2.0); EOSINOPHILS % (AUTO) 8.6 % (0.0-3.0); HEMATOCRIT 24.8 % (37.0-47.0); HEMOGLOBIN 8.4 G/DL (12.0-16.0); LYMPHOCYTES % (AUTO) 13.8 % (20.0-45.0); MEAN CORPUSCULAR VOLUME 88 FL (80-99); MONOCYTES % (AUTO) 6.8 % (1.0-10.0); NEUTROPHILS % (AUTO) 69.4 % (45.0-75.0); PLATELET COUNT 379 K/UL (150-450); RED BLOOD COUNT 2.83 M/UL (4.20-5.40); RED CELL DISTRIBUTION WIDTH 12.2 % (11.6-14.8); WHITE BLOOD COUNT 8.1 K/UL (4.8-10.8)
--- NOTE | 2019-01-27 16:26 | Diagnostic Imaging Report ---
Indication: Shortness of breath Technique: One view of the chest Comparison: 03/27/2018 Findings: Body habitus limits evaluation. The heart is borderline enlarged. There is mild bilateral diffuse interstitial edema which appears greater than on the prior study. No focal airspace consolidation. The costophrenic angles are sharp Impression: Mild interstitial edema. Borderline cardiomegaly
[2019-01-27 16:45] LABS: ANION GAP 10 mmol/L (5-15); BLOOD UREA NITROGEN 8 mg/dL (7-18); CALCIUM 7.7 MG/DL (8.5-10.1); CARBON DIOXIDE 24 MMOL/L (21-32); CHLORIDE 104 MMOL/L (98-107); CREATININE 0.7 MG/DL (0.55-1.30); SODIUM 138 MMOL/L (136-145)
--- NOTE | 2019-01-27 16:54 | Emergency Room Report ---
History of Present Illness General Chief Complaint: Dizziness Source: Patient Present Illness HPI [id number] female presents ED for evaluation. Patient got in by daughter for evaluation. States that for the last few days she is been feeling weak with dizziness and vomiting. Short of breath. With coughing. Productive with yellowish phlegm. History of COPD. Daughter states that she is also been feeling sick as well. Denies fevers or chills. Denies chest pain. States that she had a knee replacement on the left knee done at [facility] recently. PMD is Dr. Castle. No other aggravating relieving factors. Denies any other associated symptoms Allergies: Coded Allergies: AMOXICILLIN (Verified Allergy, Mild, 03/04/13) PENICILLINS (Verified Allergy, Mild, Hives/DIFFICULTY BREATHING, 10/29/17) Patient History Past Medical History: DM, HTN, COPD Past Surgical History: other - L 'knee replacement dec 2018 Pertinent Family History: none Social History: Denies: smoking, alcohol use, drug use Now: No Immunizations: UTD Reviewed Nursing Documentation: PMH: Agreed; PSxH: Agreed Nursing Documentation-PMH Hx Cardiac Problems: Yes - knee replacement (01/18/19) Hx Hypertension: Yes Hx Asthma: No Hx COPD: Yes Hx Diabetes: Yes - borderline Hx Cancer: No Hx Gastrointestinal Problems: No Hx Neurological Problems: No Hx Dizziness: Yes Review of Systems All Other Systems: negative except mentioned in HPI Physical Exam Vital Signs Date Time Temp Pulse Resp B/P (MAP) Pulse Ox O2 Delivery O2 Flow Rate FiO2 01/27/19 15:25 98.6 91 16 136/84 (101) 99 Room Air 01/27/19 16:00 21 Sp02 EP Interpretation: reviewed, normal General Appearance: no apparent distress, alert, GCS 15, non-toxic Head: normocephalic, atraumatic Eyes: bilateral eye normal inspection, bilateral eye PERRL ENT: hearing grossly normal, normal pharynx, no angioedema, normal voice Neck: full range of motion, supple/symm/no masses Respiratory: chest non-tender, crackles, speaking full sentences, wheezing Cardiovascular #1: regular rate, rhythm, no edema Cardiovascular #2: 2+ carotid (R), 2+ carotid (L), 2+ radial (R), 2+ radial (L) , 2+ dorsalis pedis (R), 2+ dorsalis pedis (L) Gastrointestinal: normal bowel sounds, non tender, soft, non-distended, no guarding, no rebound Rectal: deferred Genitourinary: normal inspection, no CVA tenderness Musculoskeletal: back normal, gait/station normal, other - surgical incision L knee C/D/I Neurologic: alert, oriented x3, responsive, motor strength/tone normal, sensory intact, speech normal Psychiatric: judgement/insight normal, memory normal, mood/affect normal, no suicidal/homicidal ideation Reflexes: 3+ bicep (R), 3+ bicep (L), 3+ tricep (R), 3+ tricep (L), 3+ knee (R) , 3+ knee (L) Skin: other - see nursing skin notes Lymphatic: no adenopathy Medical Decision Making Diagnostic Impression: Primary Impression: COPD exacerbation Additional Impression: Dizziness ER Course Hospital Course 78-year-old F presenting to ED with SOB, dizziness. h/o COPD Differential diagnoses include: Pneumonia, CHF exacerbation, pneumothorax, fluid overload Clinical course Patient placed on stretcher. On surveillance system monitor with stable vitals. After initial history and physical, I ordered nebulizer treatments. I ordered labs, IV fluids, EKG, chest x-ray, blood cultures, UA. Labs - no leukocytosis noted, hemoglobin/hematocrit stable, electrolytes okay, trop negative EKG - NSR, no acute ischemic changes interpreted by me CXR - interstitial congestion Given IV fluids. Given antibiotics. given magnesium Case discussed with Dr. Castle and he agreed to the patient to his service for further care and support I feel this is a highly complex case requiring extensive working including EKG/ Rhythm strip, Xray/CT/US, Blood/urine lab work, repeat exams while in ED, and administration of strong opiates/narcotics for pain control, admission to hospital or close patient follow up. Diagnosis - COPD exacerbation, dizziness Patient admitted to telemetry in serious condition Labs Test 01/27/19 16:00 01/27/19 16:05 01/27/19 16:26 White Blood Count 8.1 K/UL (4.8-10.8) Red Blood Count 2.83 M/UL (4.20-5.40) Hemoglobin 8.4 G/DL (12.0-16.0) Hematocrit 24.8 % (37.0-47.0) Mean Corpuscular Volume 88 FL (80-99) Mean Corpuscular Hemoglobin 29.8 PG (27.0-31.0) Mean Corpuscular Hemoglobin Concent 34.0 G/DL (32.0-36.0) Red Cell Distribution Width 12.2 % (11.6-14.8) Platelet Count 379 K/UL (150-450) Mean Platelet Volume 7.4 FL (6.5-10.1) Neutrophils (%) (Auto) 69.4 % (45.0-75.0) Lymphocytes (%) (Auto) 13.8 % (20.0-45.0) Monocytes (%) (Auto) 6.8 % (1.0-10.0) Eosinophils (%) (Auto) 8.6 % (0.0-3.0) Basophils (%) (Auto) 1.3 % (0.0-2.0) Lactic Acid Level 1.70 mmol/L (0.4-2.0) Sodium Level 138 MMOL/L (136-145) Potassium Level 3.3 MMOL/L (3.5-5.1) Chloride Level 104 MMOL/L (98-107) Carbon Dioxide Level 24 MMOL/L (21-32) Anion Gap 10 mmol/L (5-15) Blood Urea Nitrogen 8 mg/dL (7-18) Creatinine 0.7 MG/DL (0.55-1.30) Estimat Glomerular Filtration Rate mL/min (>60) Glucose Level 157 MG/DL (74-106) Calcium Level 7.7 MG/DL (8.5-10.1) Total Bilirubin 0.4 MG/DL (0.2-1.0) Aspartate Amino Transf (AST/SGOT) 27 U/L (15-37) Alanine Aminotransferase (ALT/SGPT) 13 U/L (12-78) Alkaline Phosphatase 57 U/L (46-116) Total Creatine Kinase 103 U/L (26-308) Creatine Kinase MB 1.2 NG/ML (0.0-3.6) Creatine Kinase MB Relative Index 1.1 Troponin I 0.005 ng/mL (0.000-0.056) Pro-B-Type Natriuretic Peptide 336 pg/mL (0-125) Total Protein 6.4 G/DL (6.4-8.2) Albumin 2.5 G/DL (3.4-5.0) Globulin 3.9 g/dL Albumin/Globulin Ratio 0.6 (1.0-2.7) EKG Diagnostic Results Rate: normal Rhythm: NSR ST Segments: no acute changes ASA given to the pt in ED: No Rhythm Strip Diag. Results EP Interpretation: yes Rhythm: NSR, no PVC's, no ectopy Chest X-Ray Diagnostic Results Chest X-Ray Diagnostic Results : Chest X-Ray Ordered: Yes # of Views/Limited/Complete: 1 View Indication: Shortness of Breath EP Interpretation: Yes Interpretation: no pneumothorax, other - interstitial edema, caridomegaly Impression: Other - CHF Electronically Signed by: Electronically signed by Oli Rojas MD Last Vital Signs Date Time Temp Pulse Resp B/P (MAP) Pulse Ox O2 Delivery O2 Flow Rate FiO2 01/27/19 16:30 87 20 100 Room Air 21 83 20 97 01/27/19 15:25 98.6 136/84 (101) Status: improved Disposition: ADMITTED INPATIENT Condition: Serious Referrals: Amadeo Castle MD (PCP) Oli Rojas MD Jan 27, 2019 16:53
[2019-01-27 16:59] LABS: ALANINE AMINOTRANSFERASE 13 U/L (12-78); ALBUMIN 2.5 G/DL (3.4-5.0); ALBUMIN/GLOBULIN RATIO 0.6 (1.0-2.7); ALKALINE PHOSPHATASE 57 U/L (46-116); ASPARTATE AMINO TRANSFERASE 27 U/L (15-37); BILIRUBIN,TOTAL 0.4 MG/DL (0.2-1.0); CKMB 1.2 NG/ML (0.0-3.6); CREATINE KINASE 103 U/L (26-308); POTASSIUM 3.3 MMOL/L (3.5-5.1)
[2019-01-27] MEDS ORDERED: Solu-MEDROL 125mg Inj IVP ONE (17:00)
[2019-01-27] MEDS ORDERED: Albuterol/Ipratropium 3ml neb HHN ONE (17:15)
--- NOTE | 2019-01-27 17:30 | NUR ---
ED Nurse Note: patient refused CRE and VRe swab
[2019-01-27 17:51] VITALS: BP 147/56
--- NOTE | 2019-01-27 18:05 | NUR ---
TRANSFER TO FLOOR: Patient transferred to Telemetry as ordered, per . Report given to BYRON Pimentel
--- NOTE | 2019-01-27 18:18 | NUR ---
NURSE NOTES: Pt just arrived to the floor, Ox4 calm and cooperative, very nice lady. seems like she is having a hard time breathing...
[2019-01-27] MEDS: Morphine Sulfate 2mg/ml Inj(IV/IM USE ONLY) IVP PRN (18:59)
--- NOTE | 2019-01-27 19:53 | NUR ---
HAND-OFF: Report given to Letitia Haq.
[2019-01-27 20:00] VITALS: BP 148/72
[2019-01-27] MEDS: Albuterol/Ipratropium 3ml neb HHN PRN (20:06)
--- NOTE | 2019-01-27 20:08 | NUR ---
NURSE NOTES: RECEIVED PATIENT RESTING IN BED, DAUGHTER AT BEDSIDE. PATIENT DENIES PAIN AT THIS TIME, FALL PRECAUTIONS IN PLACE: CALL LIGHT AND BEDSIDE TABLE WITHIN REACH, BED IN LOW POSITION AND BED ALARM ON. PLAN OF CARE REVIEWED.
--- NOTE | 2019-01-27 20:45 | Consultation ---
DATE OF CONSULTATION: 01/27/2019 CARDIOLOGY CONSULTATION CONSULTING PHYSICIAN: Dov Ferris M.D. REFERRING PHYSICIAN: Amadeo Castle M.D. REASON FOR CONSULTATION: Evaluate for congestive heart failure. HISTORY OF PRESENT ILLNESS: This 78-year-old female has a known history of obstructive lung disease, hypertensive heart disease, and diastolic dysfunction. She is status post left total knee replacement several weeks ago at [facility]. She went home about a week ago and apparently began having increasing shortness of breath and congestion. She has had a productive cough, some leg swelling, and decreasing exercise capacity. She has had difficulty with her diet recently due to some abdominal discomfort as well. She has had chest pain that she describes as sharp and associated with her cough. PAST MEDICAL HISTORY: Hypertension, COPD, degenerative disk disease, type 2 diabetes mellitus diet controlled, osteoarthritis, and status post left total knee replacement. ALLERGIES: Penicillin. FAMILY HISTORY: Noncontributory. SOCIAL HISTORY: Negative for smoking, alcohol, or substance abuse. MEDICATIONS: Prior to admission, reviewed and reconciled. REVIEW OF SYSTEMS: No fevers. No chills, but she has felt cold. Diabetes is managed with diet. No history of seizure or stroke. She had an outpatient echocardiogram prior to her surgery that revealed a normal ejection fraction, concentric hypertrophy, and a diastolic relaxation abnormality. There is no known history of abnormal blood clotting or DVT. She has not had any change in bowel habits, but does have frequent constipation. There is no history of kidney failure. She denies dysuria. PHYSICAL EXAMINATION: VITAL SIGNS: Blood pressure 136/84, pulse 91, respirations 16, and afebrile. Oxygen saturation on room air is 99%. HEENT: Normocephalic and atraumatic. Conjunctivae pink. Oropharynx clear. NECK: Supple. Jugular venous pressure normal. LUNGS: Diminished breath sounds. Expiratory wheezes. Few rhonchi. CARDIAC: Regular rhythm and rate. Normal S1, S2 with a fourth heart sound. BREASTS: Pendulous with no discrete masses. ABDOMEN: Soft, nontender. No guarding or rebound. EXTREMITIES: No clubbing or cyanosis. Surgical site clean and dry. Trace dependent edema. LABORATORY AND DIAGNOSTIC DATA: Sodium 138, potassium 3.3, bicarb 24, BUN 8, and creatinine 0.7. Glucose 157. Lactic acid 1.7. Albumin 2.5. Troponin negative. Pro-natriuretic peptide 336. White count 8.1, hemoglobin 8.4, MCV 88. Chest x-ray, mild pulmonary venous congestion. EKG, sinus rhythm with no acute abnormalities. IMPRESSION: 1. COPD exacerbation. 2. Acute bronchospasm. 3. Acute on chronic diastolic congestive heart failure. 4. Hypertensive heart disease with controlled blood pressure. 5. Status post recent left total knee replacement with increased risk for DVT. 6. Anemia, normochromic and normocytic. 7. Hypokalemia. PLAN: 1. Cardiac monitoring. 2. Hold diuresis. 3. Replace potassium. 4. DVT prophylaxis. 5. Check venous duplex study. 6. Inhaled bronchodilators. 7. Intravenous steroids. 8. Respiratory hygiene. 9. Empiric antimicrobials. 10. Sputum culture. 11. Monitor volume status and cardiorenal function, adjust anti-failure regimen accordingly. 12. Continue diltiazem for blood pressure management. Dov Ferris M.D. DR: DELIA JOB#: [id number] CC:
[2019-01-27] MEDS: Heparin 5000 units/ml inj SUBQ SCH (20:52)
[2019-01-27] MEDS: cefTRIAXone 2 GM in D5W 55 ML IVPB SCH (20:53)
[2019-01-27] MEDS: NovoLOG Insulin Flexpen SUBQ SCH (21:54)
[2019-01-27] MEDS: HYDROcodone/Acetamin 10/325 tab ORAL PRN (22:01)
[2019-01-27] MEDS: Wixela 100/50 Inhaler - 60 dose INH SCH (22:10)
[2019-01-28] VITALS: BP 148/75
[2019-01-28] MEDS: Albuterol/Ipratropium 3ml neb HHN PRN (00:42)
[2019-01-28] MEDS: Solu-MEDROL 125mg Inj IVP SCH ×2 (02:12→09:09)
[2019-01-28 04:00] VITALS: BP 141/64
[2019-01-28] MEDS: HYDROcodone/Acetamin 10/325 tab ORAL PRN ×3 (06:11→22:24)
[2019-01-28] MEDS: NovoLOG Insulin Flexpen SUBQ SCH ×4 (06:14→22:22)
[2019-01-28] MEDS ORDERED: NovoLOG Insulin Flexpen SUBQ SCH (06:30)
--- NOTE | 2019-01-28 07:05 | NUR ---
Nurse Note: Received report from BYRON Dong. Patient is alert and oriented x4. Patient denies pain at this time. Patient is breathing even and unlabored on room air. Patient has furniture finisher on per protocol. Patient is on fall precaution with bed locked and in lowest position, with side rails x2 up. Will continue to monitor. Noted left knee scar. Noted Dr. Castle saw patient.
--- NOTE | 2019-01-28 07:25 | NUR ---
HAND-OFF: Report given to Jazmine KOCH RN. PATIENT RESTING IN BED, NO SIGNS OF DISTRESS NOTED.
[2019-01-28] MEDS: Wixela 100/50 Inhaler - 60 dose INH SCH ×2 (07:45→20:47)
[2019-01-28 07:48] LABS: ALANINE AMINOTRANSFERASE 14 U/L (12-78); ALBUMIN 2.6 G/DL (3.4-5.0); ALBUMIN/GLOBULIN RATIO 0.6 (1.0-2.7); ALKALINE PHOSPHATASE 66 U/L (46-116); ANION GAP 12 mmol/L (5-15); ASPARTATE AMINO TRANSFERASE 17 U/L (15-37); BILIRUBIN,TOTAL 0.4 MG/DL (0.2-1.0); BLOOD UREA NITROGEN 10 mg/dL (7-18); CARBON DIOXIDE 25 MMOL/L (21-32); CHLORIDE 101 MMOL/L (98-107); CREATININE 0.9 MG/DL (0.55-1.30); POTASSIUM 3.6 MMOL/L (3.5-5.1); SODIUM 138 MMOL/L (136-145)
[2019-01-28 08:00] VITALS: BP 142/78
[2019-01-28] MEDS: dilTIAZem HCl CD 180mg cap ORAL SCH ×2 (09:10→17:39)
[2019-01-28] MEDS: Heparin 5000 units/ml inj SUBQ SCH (09:19)
--- NOTE | 2019-01-28 09:50 | NUR ---
NURSE NOTES: Paged Dr. Castle about patient's request to change the frequency of her pain mediation from q8hr to q6hr. Awaiting call back.
[2019-01-28] MEDS: Enoxaparin 40mg Inj SUBQ SCH ×2 (11:00→22:23)
[2019-01-28 11:15] LABS: % IRON SATURATION 14 % (15-50); IRON 33 ug/dL (50-175); TOTAL IRON BINDING CAPACITY 240 ug/dL (250-450)
[2019-01-28 11:27] LABS: FERRITIN 225 NG/ML (8-388)
--- NOTE | 2019-01-28 11:30 | History and Physical Report ---
DATE OF ADMISSION: 01/27/2019 CHIEF COMPLAINT: Shortness of breath. HISTORY OF PRESENT ILLNESS: The patient is a pleasant female, well known to me. She has a history of hypertensive heart disease, asthma, degenerative arthritis, obesity. She recently underwent a left total knee arthroplasty. She had a difficult postoperative course complicated by some bleeding requiring transfusion. She was discharged home where she developed worsening shortness of breath and wheezing. The patient used her inhalers at home, but failed to improve and therefore presented to the emergency room. She was diagnosed with an asthma and COPD exacerbation. She is now admitted for further evaluation and care. PAST MEDICAL HISTORY: As above. PAST SURGICAL HISTORY: Includes bilateral knee replacements. CURRENT MEDICATIONS: Reconciled and reviewed. ALLERGIES: Include amoxicillin and penicillin. FAMILY HISTORY: Noncontributory. SOCIAL HISTORY: Negative for tobacco, ethanol, or drugs. REVIEW OF SYSTEMS: GENERAL: Positive fevers and chills. No night sweats. HEENT: No headaches or visual changes. CARDIOPULMONARY: No chest pain. Positive shortness of breath. GASTROINTESTINAL: No nausea or vomiting. GENITOURINARY: No urgency or frequency. MUSCULOSKELETAL: Positive knee pain. NEUROLOGIC: No evidence of seizures. PHYSICAL EXAMINATION: VITAL SIGNS: Temperature 98, pulse 99, respirations 20, and blood pressure 142/78. GENERAL: The patient is well developed, no apparent distress. HEART: Regular rate and rhythm. LUNGS: Worsening scattered wheezes. ABDOMEN: Soft, nontender, nondistended. EXTREMITIES: Without clubbing, cyanosis. There is 1+ edema noted. The left knee incision is clean. LABORATORY DATA: Sodium 138, potassium 3.3, and creatinine 0.7. Natriuretic peptide level is 336. White count 8, hemoglobin 8.4. Chest x-ray showed mild interstitial congestion. ASSESSMENT: This is a pleasant female, admitted with complaints of shortness of breath secondary to asthma exacerbation, cannot rule out some component of heart failure. She is also anemic presumably from blood loss from a surgery. PLAN: Intravenous steroids and breathing treatments [id number]. Empiric antibiotic therapy to cover for bronchitis, possible pneumonia. Consider cautious diuresis. Cardiology evaluation to be obtained. We will check the stool for occult blood. Check iron panel. Consider Epogen. PT and OT evaluations to be obtained. Amadeo Castle M.D. DR: AG JOB#: [id number] CC:
[2019-01-28 12:00] VITALS: BP 149/80
--- NOTE | 2019-01-28 12:37 | Cardiology Report ---
APPROVED REPORT EKG Measurement Heart [id number] Sinus rhythm with 1st degree AV block with premature atrial complexes Otherwise normal ECG
[2019-01-28] MEDS ORDERED: Acetaminophen 500mg (ES) tab ORAL PRN (12:45)
[2019-01-28] MEDS: Morphine Sulfate 2mg/ml Inj(IV/IM USE ONLY) IVP PRN (15:32)
[2019-01-28 16:00] VITALS: BP 151/80
[2019-01-28 20:00] VITALS: BP 135/110
--- NOTE | 2019-01-28 20:03 | NUR ---
HAND-OFF: Report given to EUN Gillette. Addendum: 01/28/19 at 2005 by Naveed Kauffman RN Paged Dr. Castle about cough medication. Endorsed to Eun Gillette
--- NOTE | 2019-01-28 20:04 | NUR ---
NURSE NOTES: Received pt from BYRON Lucio. Pt is awake and resting in bed, in no acute distress. Iv site intact. Will continue with plan of care.
[2019-01-28] MEDS ORDERED: Iron Sucrose 100 MG in NS 55 ML IV SCH (21:00)
[2019-01-28] MEDS: Solu-MEDROL 40mg Inj IVP SCH (22:26)
[2019-01-28] MEDS: cefTRIAXone 2 GM in D5W 55 ML IVPB SCH (23:40)
[2019-01-29] VITALS: BP 145/76
--- NOTE | 2019-01-29 02:00 | Progress Note ---
DATE: 01/28/2019 CARDIOLOGY PROGRESS NOTE SUBJECTIVE: The patient still has congestion and shortness of breath. She is on IV steroids. Her glucose is elevated as a result. Iron panel as noted. The patient has less congestion and shortness of breath today. OBJECTIVE: VITAL SIGNS: Blood pressure 151/80, pulse 100, respiratory rate 18, and afebrile, T-max 99.2. LUNGS: Few rhonchi. No wheezing. CARDIAC: Regular rhythm and rate. Normal S1 and S2 with a fourth heart sound. A 1/6 systolic apical murmur. ABDOMEN: Soft. EXTREMITIES: Trace edema. Surgical site clean and dry with no signs of drainage. LABORATORY DATA: CBC pending. Labs notable for potassium 3.6, BUN 10, creatinine 0.9, and glucose 408. Iron panel with saturation of 14%. Albumin 2.6. TSH 0.23. IMPRESSION: 1. Chronic obstructive pulmonary disease exacerbation. 2. Acute bronchospasm. 3. Acute on chronic diastolic congestive heart failure. 4. Hypertensive heart disease with labile blood pressure. 5. Anemia due to chronic disease and iron deficiency. 6. Type 2 diabetes mellitus with exacerbation due to steroids. PLAN: 1. Recheck hemoglobin, may need transfusion. Add Venofer. 2. Insulin coverage by sliding scale. 3. Steroid taper. 4. Protein supplement. 5. Diuresis based on clinical parameters. 6. Titrate antihypertensives. 7. Trend natriuretic peptide assay. 8. DVT prophylaxis. 9. Follow up results of venous duplex scan. Dov Ferris M.D. DR: ENRIQUE JOB#: [id number] CC:
[2019-01-29 06:29] LABS: HEMATOCRIT 24.1 % (37.0-47.0); HEMOGLOBIN 7.8 G/DL (12.0-16.0); MEAN CORPUSCULAR VOLUME 91 FL (80-99); PLATELET COUNT 521 K/UL (150-450); RED BLOOD COUNT 2.65 M/UL (4.20-5.40); RED CELL DISTRIBUTION WIDTH 13.7 % (11.6-14.8); WHITE BLOOD COUNT 16.8 K/UL (4.8-10.8)
[2019-01-29] MEDS: NovoLOG Insulin Flexpen SUBQ SCH ×4 (07:01→21:35)
[2019-01-29] MEDS: HYDROcodone/Acetamin 10/325 tab ORAL PRN ×2 (07:02→21:02)
--- NOTE | 2019-01-29 07:08 | NUR ---
HAND-OFF: Report given to BYRON Giles. Endorsed plan of care.
[2019-01-29 07:16] LABS: ALANINE AMINOTRANSFERASE 17 U/L (12-78); ALBUMIN 2.9 G/DL (3.4-5.0); ALBUMIN/GLOBULIN RATIO 0.6 (1.0-2.7); ALKALINE PHOSPHATASE 64 U/L (46-116); ANION GAP 8 mmol/L (5-15); ASPARTATE AMINO TRANSFERASE 22 U/L (15-37); BILIRUBIN,TOTAL 0.4 MG/DL (0.2-1.0); BLOOD UREA NITROGEN 12 mg/dL (7-18); CALCIUM 9.1 MG/DL (8.5-10.1); CARBON DIOXIDE 29 MMOL/L (21-32); CHLORIDE 102 MMOL/L (98-107); CREATININE 0.7 MG/DL (0.55-1.30); POTASSIUM 3.7 MMOL/L (3.5-5.1); SODIUM 139 MMOL/L (136-145)
--- NOTE | 2019-01-29 07:34 | NUR ---
NURSE NOTES: Received bedside report from Nain MATTHEWS. Pt. in bed sitting at the edge of her bed. A/O x4. No sign of distress. Noted wheezing when talking. Pre-medicated with pain medication by previous shift. IV site at left hand #22g. in placed SL. Bed in low position, locked. Call light within reach. Will cont. to monitor.
--- NOTE | 2019-01-29 07:52 | General Progress Note ---
Subjective ROS Limited/Unobtainable: No Constitutional: Reports: malaise, weakness HEENT: Reports: no symptoms Cardiovascular: Reports: no symptoms Respiratory: Reports: cough, shortness of breath Gastrointestinal/Abdominal: Reports: rectal bleeding Genitourinary: Reports: no symptoms Neurologic/Psychiatric: Reports: no symptoms Endocrine: Reports: no symptoms Hematologic/Lymphatic: Reports: anemia Allergies: Coded Allergies: AMOXICILLIN (Verified Allergy, Mild, 03/04/13) PENICILLINS (Verified Allergy, Mild, Hives/DIFFICULTY BREATHING, 10/29/17) All Systems: reviewed and negative except above Subjective better today. no cp/sob. h/h slightly lower. per dtr pt had bleeding on xarelto. +brbpr at outside hospital. refused endoscopy. Objective Last 24 Hour Vital Signs Date Time Temp Pulse Resp B/P (MAP) Pulse Ox O2 Delivery O2 Flow Rate FiO2 01/29/19 04:00 97 01/29/19 04:00 97 01/29/19 00:00 98.1 98 19 145/76 (99) 95 01/29/19 00:00 98 01/28/19 21:00 Room Air 01/28/19 20:50 96 20 98 Room Air 21 01/28/19 20:50 96 20 98 Room Air 21 01/28/19 20:00 99.2 116 20 135/110 (118) 98 01/28/19 20:00 116 01/28/19 17:39 100 151/80 01/28/19 16:08 100 01/28/19 16:02 98.1 01/28/19 16:00 98.5 100 20 151/80 (103) 99 01/28/19 14:48 98.1 01/28/19 12:00 98.1 104 20 149/80 (103) 96 01/28/19 11:37 100 01/28/19 09:10 99 142/78 01/28/19 09:00 Room Air 01/28/19 08:00 98.3 99 20 142/78 (99) 97 Intake and Output 01/28/19 01/29/19 19:00 07:00 Intake Total 480 ml 250 ml Balance 480 ml 250 ml Intake Oral 480 ml 250 ml # Voids 2 1 # Bowel Movements 1 Laboratory Tests 01/29/19 05:14: White Blood Count 16.8H, Red Blood Count 2.65L, Hemoglobin 7.8L, Hematocrit 24.1L, Mean Corpuscular Volume 91, Mean Corpuscular Hemoglobin 29.3, Mean Corpuscular Hemoglobin Concent 32.2, Red Cell Distribution Width 13.7, Platelet Count 521H, Mean Platelet Volume 6.6, Neutrophils (%) (Auto) , Lymphocytes (%) ( Auto) , Monocytes (%) (Auto) , Eosinophils (%) (Auto) , Basophils (%) (Auto) , Neutrophils % (Manual) [Pending], Lymphocytes % (Manual) [Pending], Platelet Estimate [Pending], Platelet Morphology [Pending], Sodium Level 139, Potassium Level 3.7, Chloride Level 102, Carbon Dioxide Level 29, Anion Gap 8, Blood Urea Nitrogen 12, Creatinine 0.7, Estimat Glomerular Filtration Rate , Glucose Level 226#H, Calcium Level 9.1, Magnesium Level 2.0, Total Bilirubin 0.4, Aspartate Amino Transf (AST/SGOT) 22, Alanine Aminotransferase (ALT/SGPT) 17, Alkaline Phosphatase 64, Pro-B-Type Natriuretic Peptide 1639H, Total Protein 7.6, Albumin 2.9L, Globulin 4.7, Albumin/Globulin Ratio 0.6L Height (Feet): 5 Height (Inches): 1.00 Weight (Pounds): 260 General Appearance: WD/WN, alert Neck: supple Cardiovascular: regular rhythm Respiratory/Chest: chest wall non-tender, lungs clear, normal breath sounds Abdomen: normal bowel sounds, non tender, soft, no organomegaly Edema: no edema noted Arm (L), no edema noted Arm (R), no edema noted Leg (L), no edema noted Leg (R), no edema noted Pedal (L), no edema noted Pedal (R), no edema noted Generalized Neurologic: service line layer II-XII grossly normal, alert, oriented x 3, responsive Amadeo Castle MD Jan 29, 2019 07:52
[2019-01-29 08:00] VITALS: BP 150/96
[2019-01-29] MEDS: Solu-MEDROL 40mg Inj IVP SCH ×2 (08:26→21:08)
[2019-01-29] MEDS: dilTIAZem HCl CD 180mg cap ORAL SCH ×2 (08:27→17:39)
[2019-01-29] MEDS: Enoxaparin 40mg Inj SUBQ SCH ×2 (08:28→21:20)
[2019-01-29] MEDS: Wixela 100/50 Inhaler - 60 dose INH SCH ×2 (09:03→22:41)
[2019-01-29 12:00] VITALS: BP 139/76
--- NOTE | 2019-01-29 15:40 | General Progress Note ---
Assessment/Plan Assessment/Plan: Assessment - 1 day episode of BRBPR, likely hemorrhoida - chronic constipation - RAD / COPD exhacerbation - s/p recent (L) TKR Recommendations - bowel regimen - watch for recurrent rectal bleeding - no plans for GI procedure now due to RAD and recent TKR - advised to see GI as outpatient for colonoscopy at later date Thank you Flor Rayo MD Subjective Allergies: Coded Allergies: AMOXICILLIN (Verified Allergy, Mild, 03/04/13) PENICILLINS (Verified Allergy, Mild, Hives/DIFFICULTY BREATHING, 10/29/17) Objective Last 24 Hour Vital Signs Date Time Temp Pulse Resp B/P (MAP) Pulse Ox O2 Delivery O2 Flow Rate FiO2 01/29/19 12:07 95 01/29/19 12:00 97.8 95 18 139/76 (97) 97 01/29/19 09:05 92 16 100 Room Air 21 01/29/19 09:05 92 16 100 Room Air 21 01/29/19 09:03 91 16 100 Room Air 21 01/29/19 09:03 91 16 100 Room Air 21 01/29/19 09:00 Room Air 01/29/19 08:27 98 150/96 01/29/19 08:00 98.1 98 18 150/96 (114) 95 01/29/19 07:43 98 01/29/19 04:00 97 01/29/19 04:00 97 01/29/19 00:00 98.1 98 19 145/76 (99) 95 01/29/19 00:00 98 01/28/19 21:00 Room Air 01/28/19 20:50 96 20 98 Room Air 21 01/28/19 20:50 96 20 98 Room Air 21 01/28/19 20:00 99.2 116 20 135/110 (118) 98 01/28/19 20:00 116 01/28/19 17:39 100 151/80 01/28/19 16:08 100 01/28/19 16:02 98.1 01/28/19 16:00 98.5 100 20 151/80 (103) 99 Intake and Output 01/28/19 01/29/19 19:00 07:00 Intake Total 480 ml 250 ml Balance 480 ml 250 ml Intake Oral 480 ml 250 ml # Voids 2 1 # Bowel Movements 1 Laboratory Tests 01/29/19 05:14: White Blood Count 16.8H, Red Blood Count 2.65L, Hemoglobin 7.8L, Hematocrit 24.1L, Mean Corpuscular Volume 91, Mean Corpuscular Hemoglobin 29.3, Mean Corpuscular Hemoglobin Concent 32.2, Red Cell Distribution Width 13.7, Platelet Count 521H, Mean Platelet Volume 6.6, Neutrophils (%) (Auto) , Lymphocytes (%) ( Auto) , Monocytes (%) (Auto) , Eosinophils (%) (Auto) , Basophils (%) (Auto) , Differential Total Cells Counted 100, Neutrophils % (Manual) 93H, Lymphocytes % (Manual) 4L, Monocytes % (Manual) 3, Eosinophils % (Manual) 0, Basophils % ( Manual) 0, Band Neutrophils 0, Platelet Estimate IncreasedH, Platelet Morphology Normal, Polychromasia 1+, Hypochromasia 1+, Ovalocytes 2+, Sodium Level 139, Potassium Level 3.7, Chloride Level 102, Carbon Dioxide Level 29, Anion Gap 8, Blood Urea Nitrogen 12, Creatinine 0.7, Estimat Glomerular Filtration Rate , Glucose Level 226#H, Calcium Level 9.1, Magnesium Level 2.0, Total Bilirubin 0.4, Aspartate Amino Transf (AST/SGOT) 22, Alanine Aminotransferase (ALT/SGPT) 17, Alkaline Phosphatase 64, Pro-B-Type Natriuretic Peptide 1639H, Total Protein 7.6, Albumin 2.9L, Globulin 4.7, Albumin/Globulin Ratio 0.6L Height (Feet): 5 Height (Inches): 1.00 Weight (Pounds): 260 Flor Rayo MD Jan 29, 2019 15:40
[2019-01-29] MEDS: Sorbitol Solution UD 30ml ORAL SCH (15:53)
[2019-01-29 16:00] VITALS: BP 152/88
--- NOTE | 2019-01-29 19:35 | NUR ---
NURSE NOTES: Received patient from Lis MATTHEWS. Patient in bed, on room air, no s/s respiratory distress. Bed in low position, locked, bed alarm on, call light within reach.
--- NOTE | 2019-01-29 19:36 | NUR ---
HAND-OFF: Report given to Arnaud MATTHEWS. Pt. remain stable.
[2019-01-29 20:00] VITALS: BP 152/73
[2019-01-29] MEDS: Iron Sucrose 100 MG in NS 55 ML IV SCH (21:17)
[2019-01-29] MEDS: cefTRIAXone 2 GM in D5W 55 ML IVPB SCH (21:36)
--- NOTE | 2019-01-29 22:41 | NUR ---
NURSE NOTES: 12 lead ECG completed, shows afib, normal heart rate. Notfied Dr. Ferris's answering service and left message.
--- NOTE | 2019-01-29 23:00 | Progress Note ---
DATE: 01/29/2019 CARDIOLOGY PROGRESS NOTE SUBJECTIVE: The patient is anxious to go home. She complains of constipation. She still short of breath. PHYSICAL EXAMINATION: VITAL SIGNS: Blood pressure 139/76, pulse 95, respiratory rate 18, afebrile. LUNGS: Few rales. HEART: Regular rhythm and rate. Normal S1, S2 with a fourth heart sound. ABDOMEN: Soft, slightly distended. EXTREMITIES: Trace edema. Surgical site on the knee without any abnormality seen LABORATORY AND DIAGNOSTIC DATA: White count 16.8, hemoglobin 7.8, platelet count 521. Sodium 139, potassium 3.7, bicarb 29, BUN 12, and creatinine 0.7. Pronatriuretic peptide increased to 1600. Albumin is 2.9. IMPRESSION: 1. COPD exacerbation. 2. Acute bronchospasm. 3. Anemia due to chronic disease and iron deficiency. 4. Status post left knee replacement. 5. Moderate protein-calorie malnutrition. 6. Hypertensive heart disease. PLAN: 1. Diuresis. 2. Iron replacement. 3. Recheck hemoglobin, may need transfusion. 4. Nasal oxygen. 5. Protein supplement. 6. DVT prophylaxis. 7. Follow up results of venous duplex scan. 8. Stool occult blood test. 9. Not stable for discharge home. Dov Ferris M.D. DR: Parker JOB#: [id number] CC:
[2019-01-30] VITALS: BP 141/80
--- NOTE | 2019-01-30 03:00 | Consultation ---
DATE OF CONSULTATION: 01/29/2019 GASTROENTEROLOGY CONSULTATION CONSULTING PHYSICIAN: Flor Rayo M.D. CHIEF COMPLAINT: I was asked to see this patient by Dr. Amadeo Castle for evaluation of rectal bleeding. HISTORY OF PRESENT ILLNESS: The patient is a pleasant 78-year-old woman who had a recent left total knee replacement at an outside hospital. She states that soon after discharge, she went home and she had a bout of rectal bleeding once. She has had a subsequent bowel movement, only had a streak of blood and since then she has had no bleeding in her stools. She normally is somewhat constipated and has strained to have bowel movements. For that reason, she takes long-term laxatives. She states her last colonoscopy was perhaps about 10 years ago. The patient was previously on Xarelto, now is on Lovenox. She also has had some vomiting and has a COPD and exacerbation of her reactive airways. PAST MEDICAL HISTORY: History of diabetes, hypertension, COPD, degenerative joint disease, status post right knee replacement, now status post left knee replacement. FAMILY HISTORY: Noncontributory. SOCIAL HISTORY: The patient lives with her daughter. The patient has no history of smoking or drinking. ALLERGIES: Penicillin. REVIEW OF SYSTEMS: Otherwise negative. PHYSICAL EXAMINATION: GENERAL: This is a pleasant woman, seen in her room. HEENT: Normocephalic and atraumatic. Sclerae are anicteric. Oropharynx clear. NECK: Supple. CHEST: Bilateral wheezing and rhonchi. CARDIOVASCULAR: Revealed a regular rate. ABDOMEN: Obese, soft, and nontender. EXTREMITIES: Revealed recent left knee surgery scar and some edema, more in the left lower extremity, but also found in the right lower extremity. RECTAL: Rectal exam with the presence of a female nurse showed no external lesions. ASSESSMENT: This patient has had a recent bout of hematochezia, which is once and sudden and stopped abruptly essentially after the first episode. She has a history of long-term constipation and straining issues. I suspect that this bleeding is hemorrhoidal in nature. The patient has not had a colonoscopy for about 10 years and therefore to do one now. However, she had a knee replacement surgery to allow some time to the hardware to . In addition, the patient has exacerbation of reactive airway disease, and she has wheezing and rhonchi on examination. Therefore, she should also recover from that . I would therefore hold off on GI procedure for now done as an outpatient. In the meantime, the patient should be stool softener or perhaps stronger bowel regimen to help with bowel movements. RECOMMENDATIONS: 1. Stool softeners. 2. Push oral intake. 3. Monitor CBC. 4. Pulmonary toilet and treatment. 5. Outpatient colonoscopy. Thank you for asking me to participate in the care of this patient. Flor Rayo M.D. DR: JARVIS JOB#: [id number] CC:
[2019-01-30 04:00] VITALS: BP 153/87
[2019-01-30] MEDS: HYDROcodone/Acetamin 10/325 tab ORAL PRN ×2 (05:44→21:43)
[2019-01-30] MEDS: NovoLOG Insulin Flexpen SUBQ SCH ×4 (05:53→20:45)
[2019-01-30] MEDS: Morphine Sulfate 2mg/ml Inj(IV/IM USE ONLY) IVP PRN (06:07)
[2019-01-30] MEDS ORDERED: Sorbitol Solution UD 30ml ORAL SCH (07:28)
--- NOTE | 2019-01-30 07:35 | NUR ---
NURSE NOTES: Report received from BYRON Lares. Pt shows no signs of distress. A+Ox4, sometimes forgetful, denies pain/SOB. Respirations are even and unlabored on room air. IV site is intact and saline locked. Bed is at lowest position, brakes engaged, siderails x2, bed alarm on, and call light within reach. Pt is in stable condition at this time and is instructed to use call light if she wants to get up from the bed.
--- NOTE | 2019-01-30 07:36 | NUR ---
HAND-OFF: Report given to Ana MATTHEWS.
[2019-01-30 08:00] VITALS: BP 157/95
[2019-01-30] MEDS: Sorbitol Solution UD 30ml ORAL SCH (08:23)
[2019-01-30] MEDS: dilTIAZem HCl CD 180mg cap ORAL SCH ×2 (08:23→17:02)
[2019-01-30] MEDS: Solu-MEDROL 40mg Inj IVP SCH ×2 (08:23→20:47)
--- NOTE | 2019-01-30 08:37 | General Progress Note ---
Assessment/Plan Assessment/Plan: Assessment - 1 day episode of BRBPR, likely hemorrhoidal - chronic constipation - RAD / COPD exhacerbation - s/p recent (L) TKR Recommendations - bowel regimen, more laxaties - watch for recurrent rectal bleeding - no plans for GI procedure now due to RAD and recent TKR - advised to see GI as outpatient for colonoscopy at later date Subjective Allergies: Coded Allergies: AMOXICILLIN (Verified Allergy, Mild, 03/04/13) PENICILLINS (Verified Allergy, Mild, Hives/DIFFICULTY BREATHING, 10/29/17) Subjective Feels OK no BM yet no further rectal bleeding Objective Last 24 Hour Vital Signs Date Time Temp Pulse Resp B/P (MAP) Pulse Ox O2 Delivery O2 Flow Rate FiO2 01/30/19 08:23 103 157/95 01/30/19 08:00 97.9 92 18 157/95 (115) 95 01/30/19 06:29 98.2 01/30/19 06:14 98.2 01/30/19 04:00 97 01/30/19 04:00 98.2 97 24 153/87 (109) 95 01/30/19 00:00 99.0 92 22 141/80 (100) 94 01/30/19 00:00 90 01/29/19 22:43 98 16 99 Room Air 21 01/29/19 22:41 98 20 99 Room Air 21 01/29/19 21:00 Room Air 01/29/19 20:00 107 01/29/19 20:00 98.1 108 24 152/73 (99) 100 01/29/19 17:39 99 152/88 01/29/19 16:56 101 01/29/19 16:00 98.4 99 18 152/88 (109) 98 01/29/19 12:07 95 01/29/19 12:00 97.8 95 18 139/76 (97) 97 01/29/19 09:05 92 16 100 Room Air 21 01/29/19 09:05 92 16 100 Room Air 21 01/29/19 09:03 91 16 100 Room Air 21 01/29/19 09:03 91 16 100 Room Air 21 01/29/19 09:00 Room Air Intake and Output 01/29/19 01/30/19 19:00 07:00 Intake Total 480 ml 240 ml Output Total 3 ml 2 ml Balance 477 ml 238 ml Intake Oral 480 ml 240 ml Output Urine Total 3 ml 2 ml Height (Feet): 5 Height (Inches): 1.00 Weight (Pounds): 260 Objective WDWN NCAT supple CTA RR abd soft ND NT no edema Flor Rayo MD Jan 30, 2019 08:37
[2019-01-30] MEDS ORDERED: Enoxaparin 40mg Inj SUBQ SCH (09:00)
[2019-01-30] MEDS: Wixela 100/50 Inhaler - 60 dose INH SCH ×2 (09:17→20:10)
[2019-01-30] MEDS: Enoxaparin 40mg Inj SUBQ SCH ×2 (10:08→20:46)
--- NOTE | 2019-01-30 10:17 | NUR ---
CASE MANAGEMENT:REVIEW 78 YR OLD FEMALE PRESENTED FROM HOME TO ER BY DAUGHTER CC: N/V. DIZZINESS. WHEEZING SI: COPD EXACERBATION 98.6 91 16 136/84 99% ON RA H/H-8.4/24.8 K-3.3 CA-7.7 IS: DUONEB HHN Q15 1L NS BOLUS IV LEVAQUIN IV SOLUMEDROL IV ZOFRAN CXR : TO TELEMETRY DCP: FROM HOME
--- NOTE | 2019-01-30 11:08 | General Progress Note ---
Assessment/Plan Problem List: (1) GIB (gastrointestinal bleeding) ICD Codes: K92.2 - Gastrointestinal hemorrhage, unspecified SNOMED: 47809371 (2) Anemia ICD Codes: D64.9 - Anemia, unspecified SNOMED: 738330609 (3) Chest pain (4) Acute bronchitis ICD Codes: J20.9 - Acute bronchitis SNOMED: 00075377 (5) Shortness of breath ICD Codes: R06.02 - Shortness of breath SNOMED: 698257351 (6) Hypertension ICD Codes: I10 - Essential (primary) hypertension SNOMED: 96469737 (7) COPD (chronic obstructive pulmonary disease) ICD Codes: J44.9 - Chronic obstructive pulmonary disease, unspecified SNOMED: 84025751, 0154487 Status: stable, progressing Assessment/Plan: stable cont lovenox await US results GI eval for GIB(has at outside hospital) cont resp rx wean steroids Subjective ROS Limited/Unobtainable: No Constitutional: Reports: malaise, weakness HEENT: Reports: no symptoms Cardiovascular: Reports: no symptoms Respiratory: Reports: cough Gastrointestinal/Abdominal: Reports: no symptoms Genitourinary: Reports: no symptoms Neurologic/Psychiatric: Reports: no symptoms Endocrine: Reports: no symptoms Hematologic/Lymphatic: Reports: anemia Allergies: Coded Allergies: AMOXICILLIN (Verified Allergy, Mild, 03/04/13) PENICILLINS (Verified Allergy, Mild, Hives/DIFFICULTY BREATHING, 10/29/17) All Systems: reviewed and negative except above Subjective better today. no cp/sob. h/h slightly lower. per dtr pt had bleeding on xarelto. +brbpr at outside hospital. refused endoscopy. Objective Last 24 Hour Vital Signs Date Time Temp Pulse Resp B/P (MAP) Pulse Ox O2 Delivery O2 Flow Rate FiO2 01/30/19 09:22 112 24 98 Room Air 21 01/30/19 09:22 109 24 97 Room Air 01/30/19 09:22 113 24 98 Room Air 01/30/19 09:22 112 24 99 Room Air 01/30/19 09:00 Room Air 01/30/19 08:23 103 157/95 01/30/19 08:00 97.9 92 18 157/95 (115) 95 01/30/19 08:00 93 01/30/19 06:29 98.2 01/30/19 06:14 98.2 01/30/19 04:00 97 01/30/19 04:00 98.2 97 24 153/87 (109) 95 01/30/19 00:00 99.0 92 22 141/80 (100) 94 01/30/19 00:00 90 01/29/19 22:43 98 16 99 Room Air 21 01/29/19 22:41 98 20 99 Room Air 21 01/29/19 21:00 Room Air 01/29/19 20:00 107 01/29/19 20:00 98.1 108 24 152/73 (99) 100 01/29/19 17:39 99 152/88 01/29/19 16:56 101 01/29/19 16:00 98.4 99 18 152/88 (109) 98 01/29/19 12:07 95 01/29/19 12:00 97.8 95 18 139/76 (97) 97 Intake and Output 01/29/19 01/30/19 19:00 07:00 Intake Total 480 ml 240 ml Output Total 3 ml 2 ml Balance 477 ml 238 ml Intake Oral 480 ml 240 ml Output Urine Total 3 ml 2 ml Height (Feet): 5 Height (Inches): 1.00 Weight (Pounds): 260 General Appearance: WD/WN, alert Neck: supple Cardiovascular: regular rhythm Respiratory/Chest: expiratory wheezing Abdomen: normal bowel sounds, non tender, soft, no organomegaly Edema: no edema noted Arm (L), no edema noted Arm (R), no edema noted Leg (L), no edema noted Leg (R), no edema noted Pedal (L), no edema noted Pedal (R), no edema noted Generalized Amadeo Castle MD Jan 30, 2019 11:08
[2019-01-30 12:00] VITALS: BP 134/71
[2019-01-30 16:00] VITALS: BP 152/81
--- NOTE | 2019-01-30 19:14 | NUR ---
HAND-OFF: Report given to BYRON Denny. Patient is in stable condition; plan of care endorsed.
--- NOTE | 2019-01-30 19:25 | NUR ---
NURSE NOTES: Received pt and report from BYRON Perez. Observed pt resting in bed with both eyes open and family members at bed side. Pt is A/Ox3. child monitor is in placed, IV site intact, asymptomatic, and patent. Bed is in the lowest position and locked. Call light within reach. No signs/symptoms of acute distress noted at this time. Will continue plan of care.
[2019-01-30 20:00] VITALS: BP 154/90
[2019-01-30] MEDS: Iron Sucrose 100 MG in NS 55 ML IV SCH (20:47)
[2019-01-30] MEDS: cefTRIAXone 2 GM in D5W 55 ML IVPB SCH (21:33)
[2019-01-31] VITALS: BP 134/84
--- NOTE | 2019-01-31 03:45 | Progress Note ---
DATE: 01/30/2019 CARDIOLOGY PROGRESS NOTE SUBJECTIVE: The patient had episode of rapid atrial fibrillation last night. She was stabilized with additional cardiovascular medications given intravenously. She is back in sinus rhythm now. She had episode of rectal bleeding and anticoagulation was held. The patient refuses panendoscopy at this time. According to her daughter, she had bleeding episode as well on Xarelto at the outside hospital and she had her knee replacement and refused workup . OBJECTIVE: VITAL SIGNS: Blood pressure 152/81, heart rate 110, respiratory rate 18, and afebrile. LUNGS: Clear. Diminished breath sounds. No wheezing. Few rhonchi. HEART: Regular rhythm and rate. Frequent ectopic beats. Normal S1 and S2. ABDOMEN: Soft. EXTREMITIES: No edema. LABORATORY AND DIAGNOSTIC DATA: Venous duplex scan is negative for DVT. White count 16.8 and hemoglobin 7.8 yesterday. IMPRESSION: 1. COPD exacerbation. 2. Paroxysmal bronchospasm. 3. Iron deficiency. 4. Rectal bleeding. 5. Moderate protein-calorie malnutrition. 6. Paroxysmal atrial fibrillation with rapid ventricular response. 7. Hypertensive heart disease with labile blood pressure. 8. Type 2 diabetes mellitus exacerbated on steroids. 9. Acute on chronic diastolic congestive heart failure. 10. Status post left total knee replacement. PLAN: 1. IV iron. 2. Packed red blood cell transfusion. 3. Steroid taper. 4. Cautious anticoagulation. 5. We will need clearance of GI tract prior to long-term anticoagulation. 6. Bowel regimen. 7. Insulin titration by sliding scale. 8. Diltiazem for rate control. 9. Diuresis based on clinical parameters. Dov Ferris M.D. DR: NAVEED JOB#: [id number] CC:
[2019-01-31 04:00] VITALS: BP 150/86
[2019-01-31] MEDS: Morphine Sulfate 2mg/ml Inj(IV/IM USE ONLY) IVP PRN (05:04)
[2019-01-31] MEDS ORDERED: HYDROmorphone 1mg/ml Carpuject IVP PRN ×2 (05:30→05:45)
[2019-01-31] MEDS: NovoLOG Insulin Flexpen SUBQ SCH ×4 (06:05→20:45)
[2019-01-31 06:44] LABS: HEMATOCRIT 26.6 % (37.0-47.0); HEMOGLOBIN 8.8 G/DL (12.0-16.0); MEAN CORPUSCULAR VOLUME 90 FL (80-99); PLATELET COUNT 611 K/UL (150-450); RED BLOOD COUNT 2.95 M/UL (4.20-5.40); RED CELL DISTRIBUTION WIDTH 18.4 % (11.6-14.8); WHITE BLOOD COUNT 13.2 K/UL (4.8-10.8)
--- NOTE | 2019-01-31 07:20 | NUR ---
NURSE NOTES: Nurse report given by BYRON Denny. Patient's sleeping in bed but easily awake. AO x3, denies pain, no s/s of distress or SOB. Bed low and locked, call light within reach, side rails x 2, bed alarm is on. IV is saline locked, patent and asymptomatic. Will continue to monitor.
[2019-01-31 07:24] LABS: ALANINE AMINOTRANSFERASE 17 U/L (12-78); ALBUMIN/GLOBULIN RATIO 0.7 (1.0-2.7); ALKALINE PHOSPHATASE 66 U/L (46-116); ANION GAP 9 mmol/L (5-15); ASPARTATE AMINO TRANSFERASE 19 U/L (15-37); BILIRUBIN,TOTAL 0.6 MG/DL (0.2-1.0); BLOOD UREA NITROGEN 21 mg/dL (7-18); CALCIUM 9.2 MG/DL (8.5-10.1); CARBON DIOXIDE 28 MMOL/L (21-32); CHLORIDE 102 MMOL/L (98-107); CREATININE 0.9 MG/DL (0.55-1.30); POTASSIUM 3.4 MMOL/L (3.5-5.1); SODIUM 139 MMOL/L (136-145)
--- NOTE | 2019-01-31 07:24 | Cardiology Report ---
APPROVED REPORT EKG Measurement Heart [id number] Atrial fibrillation Abnormal ECG
--- NOTE | 2019-01-31 07:38 | NUR ---
HAND-OFF: Report given to BYRON Case. Plan of care endorsed.
[2019-01-31 08:00] VITALS: BP 150/90
--- NOTE | 2019-01-31 08:46 | General Progress Note ---
Assessment/Plan Problem List: (1) GIB (gastrointestinal bleeding) ICD Codes: K92.2 - Gastrointestinal hemorrhage, unspecified SNOMED: 91465712 (2) Anemia ICD Codes: D64.9 - Anemia, unspecified SNOMED: 047041238 (3) Chest pain (4) Acute bronchitis ICD Codes: J20.9 - Acute bronchitis SNOMED: 82347242 (5) Shortness of breath ICD Codes: R06.02 - Shortness of breath SNOMED: 928499304 (6) Hypertension ICD Codes: I10 - Essential (primary) hypertension SNOMED: 88242369 (7) COPD (chronic obstructive pulmonary disease) ICD Codes: J44.9 - Chronic obstructive pulmonary disease, unspecified SNOMED: 21539297, 5121456 Status: stable, progressing Assessment/Plan: stable cont lovenox await US results GI follow up PPI rx follow up stool ob pain meds advanced cont resp rx wean steroids Subjective ROS Limited/Unobtainable: No Constitutional: Reports: malaise, weakness HEENT: Reports: no symptoms Cardiovascular: Reports: no symptoms Respiratory: Reports: cough, shortness of breath Gastrointestinal/Abdominal: Reports: no symptoms Genitourinary: Reports: no symptoms Neurologic/Psychiatric: Reports: no symptoms Endocrine: Reports: no symptoms Hematologic/Lymphatic: Reports: anemia Allergies: Coded Allergies: AMOXICILLIN (Verified Allergy, Mild, 03/04/13) PENICILLINS (Verified Allergy, Mild, Hives/DIFFICULTY BREATHING, 10/29/17) All Systems: reviewed and negative except above Subjective c/o of left knee pain. uncontrolled with morphine. no fever or chills. no bleeding. remains on lovenox. ?refused endoscopy. per dtr had enough rectal bleeding to require transfusion at outside hospital. Objective Last 24 Hour Vital Signs Date Time Temp Pulse Resp B/P (MAP) Pulse Ox O2 Delivery O2 Flow Rate FiO2 01/31/19 08:00 98.2 106 19 150/90 (110) 95 01/31/19 04:00 98.2 100 19 150/86 (107) 95 01/31/19 03:38 115 01/31/19 00:00 98.2 92 18 134/84 (101) 98 01/30/19 23:31 92 01/30/19 21:00 Room Air 01/30/19 20:11 94 20 97 Room Air 21 01/30/19 20:11 96 20 97 Room Air 21 01/30/19 20:00 97.0 100 20 154/90 (111) 97 01/30/19 19:06 118 01/30/19 17:02 110 152/81 01/30/19 16:00 98.7 94 18 152/81 (104) 94 01/30/19 16:00 99 01/30/19 12:00 89 01/30/19 12:00 97.5 88 18 134/71 (92) 93 01/30/19 09:22 112 24 98 Room Air 21 01/30/19 09:22 109 24 97 Room Air 21 01/30/19 09:22 113 24 98 Room Air 01/30/19 09:22 112 24 99 Room Air 01/30/19 09:00 Room Air Intake and Output 01/30/19 01/31/19 19:00 07:00 # Voids 4 4 # Bowel Movements 2 4 Laboratory Tests 01/30/19 12:00: Stool Occult Blood [Pending] 01/31/19 05:55: White Blood Count 13.2H, Red Blood Count 2.95L, Hemoglobin 8.8L, Hematocrit 26.6L, Mean Corpuscular Volume 90, Mean Corpuscular Hemoglobin 29.9, Mean Corpuscular Hemoglobin Concent 33.2, Red Cell Distribution Width 18.4H, Platelet Count 611H, Mean Platelet Volume 6.5, Neutrophils (%) (Auto) , Lymphocytes (%) (Auto) , Monocytes (%) (Auto) , Eosinophils (%) (Auto) , Basophils (%) (Auto) , Differential Total Cells Counted 100, Neutrophils % ( Manual) 84H, Lymphocytes % (Manual) 11L, Monocytes % (Manual) 3, Eosinophils % ( Manual) 0, Basophils % (Manual) 0, Band Neutrophils 2, Nucleated Red Blood Cells 4, Platelet Estimate IncreasedH, Platelet Morphology Normal, Polychromasia 1+, Anisocytosis 2+, Ovalocytes 3+, Schistocytes 1+, Sodium Level 139, Potassium Level 3.4L, Chloride Level 102, Carbon Dioxide Level 28, Anion Gap 9, Blood Urea Nitrogen 21H, Creatinine 0.9, Estimat Glomerular Filtration Rate , Glucose Level 293H, Calcium Level 9.2, Magnesium Level 1.9, Total Bilirubin 0.6, Aspartate Amino Transf (AST/SGOT) 19, Alanine Aminotransferase ( ALT/SGPT) 17, Alkaline Phosphatase 66, Pro-B-Type Natriuretic Peptide 3156H, Total Protein 7.5, Albumin 3.0L, Globulin 4.5, Albumin/Globulin Ratio 0.7L Height (Feet): 5 Height (Inches): 1.00 Weight (Pounds): 260 Objective General Appearance: WD/WN, alert Neck: supple Cardiovascular: regular rhythm Respiratory/Chest: expiratory wheezing Abdomen: normal bowel sounds, non tender, soft, no organomegaly Edema: no edema noted Arm (L), no edema noted Arm (R), no edema noted Leg (L), no edema noted Leg (R), no edema noted Pedal (L), no edema noted Pedal (R), no edema noted Generalized Amadeo Castle MD Jan 31, 2019 08:46
[2019-01-31] MEDS: Sorbitol Solution UD 30ml ORAL SCH (09:11)
[2019-01-31] MEDS: dilTIAZem HCl CD 180mg cap ORAL SCH ×2 (09:11→17:47)
[2019-01-31] MEDS: Solu-MEDROL 40mg Inj IVP SCH (09:12)
[2019-01-31] MEDS: Enoxaparin 40mg Inj SUBQ SCH ×2 (09:12→20:46)
[2019-01-31] MEDS: Wixela 100/50 Inhaler - 60 dose INH SCH ×2 (09:19→23:07)
[2019-01-31 12:00] VITALS: BP 160/91
[2019-01-31] MEDS: HYDROcodone/Acetamin 10/325 tab ORAL PRN (13:39)
--- NOTE | 2019-01-31 14:25 | Diagnostic Imaging Report ---
APPROVED REPORT CPT Code: 31488 Present Symptoms Comments: BILATERAL LEGS PAIN. BILATERAL: Imaging reveals a patent deep venous system bilaterally. There is no evidence of thrombus within the femoral, popliteal or tibial segments. The greater saphenous veins are also within normal limits. Doppler indicates normal spontaneous flow within these segments.
--- NOTE | 2019-01-31 15:00 | NUR ---
NURSE NOTES: Contacted Dr. Castle and left message that patient wished to leave AMA. She complains that no doctor came to see her and no plan for her care. I explained to her that we are monitoring her for her COPD, blood pressure, blood sugar and we need to collect her stool for OB stool test. Awaiting for MD response.
[2019-01-31 16:00] VITALS: BP 162/83
--- NOTE | 2019-01-31 16:10 | NUR ---
NURSE NOTES: Explained to patient's situation that patient wishes to go home and the daughter able to convince the patient to stay and now patient agree to stay. Left message to Dr. Castle about it, awaiting for response.
--- NOTE | 2019-01-31 17:41 | NUR ---
NURSE NOTES: Left message to Dr. Castle regarding patient's high blood sugar. It was 440, nurse gave 12units. Awaiting for new order.
--- NOTE | 2019-01-31 19:25 | NUR ---
HAND-OFF: Report given to BYRON Denny. Plan of care endorsed. Patient's stable.
--- NOTE | 2019-01-31 19:33 | General Progress Note ---
Assessment/Plan Status: stable, progressing Assessment/Plan: Assessment - 1 day episode of BRBPR, likely hemorrhoidal - chronic constipation - RAD / COPD exhacerbation - s/p recent (L) TKR Recommendations - bowel regimen, more laxaties - watch for recurrent rectal bleeding - no plans for GI procedure now due to RAD and recent TKR - advised to see GI as outpatient for colonoscopy at later date - OK for anticoagulation from GI standpoint Subjective Allergies: Coded Allergies: AMOXICILLIN (Verified Allergy, Mild, 03/04/13) PENICILLINS (Verified Allergy, Mild, Hives/DIFFICULTY BREATHING, 10/29/17) Subjective Feels OK no further rectal bleeding Objective Last 24 Hour Vital Signs Date Time Temp Pulse Resp B/P (MAP) Pulse Ox O2 Delivery O2 Flow Rate FiO2 01/31/19 17:47 101 162/83 01/31/19 16:00 106 01/31/19 16:00 97.9 101 20 162/83 (109) 95 01/31/19 12:00 97.3 98 19 160/91 (114) 93 01/31/19 12:00 113 01/31/19 09:21 98 18 98 Room Air 21 01/31/19 09:21 99 20 99 Room Air 21 01/31/19 09:19 93 18 98 Room Air 21 01/31/19 09:19 94 18 98 Room Air 21 01/31/19 09:11 106 150/90 01/31/19 09:00 Room Air 01/31/19 08:00 106 01/31/19 08:00 98.2 106 19 150/90 (110) 95 01/31/19 04:00 98.2 100 19 150/86 (107) 95 01/31/19 03:38 115 01/31/19 00:00 98.2 92 18 134/84 (101) 98 01/30/19 23:31 92 01/30/19 21:00 Room Air 01/30/19 20:11 94 20 97 Room Air 21 01/30/19 20:11 96 20 97 Room Air 21 01/30/19 20:00 97.0 100 20 154/90 (111) 97 Intake and Output 01/30/19 01/31/19 19:00 07:00 # Voids 4 4 # Bowel Movements 2 4 Laboratory Tests 01/31/19 05:55: White Blood Count 13.2H, Red Blood Count 2.95L, Hemoglobin 8.8L, Hematocrit 26.6L, Mean Corpuscular Volume 90, Mean Corpuscular Hemoglobin 29.9, Mean Corpuscular Hemoglobin Concent 33.2, Red Cell Distribution Width 18.4H, Platelet Count 611H, Mean Platelet Volume 6.5, Neutrophils (%) (Auto) , Lymphocytes (%) (Auto) , Monocytes (%) (Auto) , Eosinophils (%) (Auto) , Basophils (%) (Auto) , Differential Total Cells Counted 100, Neutrophils % ( Manual) 84H, Lymphocytes % (Manual) 11L, Monocytes % (Manual) 3, Eosinophils % ( Manual) 0, Basophils % (Manual) 0, Band Neutrophils 2, Nucleated Red Blood Cells 4, Other Cell Type Pathologist comment, Platelet Estimate IncreasedH, Platelet Morphology Normal, Polychromasia 1+, Anisocytosis 2+, Ovalocytes 3+, Schistocytes 1+, Sodium Level 139, Potassium Level 3.4L, Chloride Level 102, Carbon Dioxide Level 28, Anion Gap 9, Blood Urea Nitrogen 21H, Creatinine 0.9, Estimat Glomerular Filtration Rate , Glucose Level 293H, Calcium Level 9.2, Magnesium Level 1.9, Total Bilirubin 0.6, Aspartate Amino Transf (AST/SGOT) 19, Alanine Aminotransferase (ALT/SGPT) 17, Alkaline Phosphatase 66, Pro-B-Type Natriuretic Peptide 3156H, Total Protein 7.5, Albumin 3.0L, Globulin 4.5, Albumin/Globulin Ratio 0.7L Height (Feet): 5 Height (Inches): 1.00 Weight (Pounds): 260 Objective WDWN NCAT supple CTA RR abd soft ND NT no edema Flor Rayo MD Jan 31, 2019 19:33
--- NOTE | 2019-01-31 19:46 | NUR ---
NURSE NOTES: Received pt and report from BYRON Case. Observed pt resting in bed with both eyes open and watching television with SUPERVISOR OF [employer]IC[employer] at bedside taking VS. stucco mason is in placed, IV site intact, asymptomatic, and patent. Bed is in the lowest position and locked. Call light within reach. No signs/symptoms of acute distress noted at this time. Will continue plan of care.
[2019-01-31 20:00] VITALS: BP 154/94
[2019-01-31] MEDS: Iron Sucrose 100 MG in NS 55 ML IV SCH (20:44)
[2019-01-31] MEDS: cefTRIAXone 2 GM in D5W 55 ML IVPB SCH (21:15)
[2019-02-01] VITALS: BP 156/86
--- NOTE | 2019-02-01 02:15 | Progress Note ---
DATE: 01/31/2019 CARDIOLOGY PROGRESS NOTE SUBJECTIVE: No new bleeding. No sustained atrial fibrillation. Venous duplex negative. OBJECTIVE: VITAL SIGNS: Blood pressure 150/90, pulse 106, respiratory rate 19. LUNGS: Clear. CARDIAC: Regular. Normal S1, S2 with a fourth heart sound. ABDOMEN: Soft. EXTREMITIES: No edema. Left knee site with no active drainage. IMPRESSION: 1. Paroxysmal atrial fibrillation. 2. Recent GI bleed. 3. Recent left knee replacement. 4. Hypertensive heart disease. PLAN: 1. Await GI followup. 2. Continue Lovenox. 3. Cannot anticoagulate. 4. Donald for cardioembolic prophylaxis without panendoscopy first based on recent history. 5. We will follow. Dov Ferris M.D. DR: KENNEDY JOB#: [id number] CC:
[2019-02-01] MEDS: HYDROcodone/Acetamin 10/325 tab ORAL PRN ×2 (02:50→11:57)
[2019-02-01 04:00] VITALS: BP 158/91
[2019-02-01] MEDS: NovoLOG Insulin Flexpen SUBQ SCH ×2 (06:08→11:30)
--- NOTE | 2019-02-01 07:22 | General Progress Note ---
Assessment/Plan Problem List: (1) GIB (gastrointestinal bleeding) ICD Codes: K92.2 - Gastrointestinal hemorrhage, unspecified SNOMED: 64857580 (2) Anemia ICD Codes: D64.9 - Anemia, unspecified SNOMED: 339525608 (3) Chest pain (4) Acute bronchitis ICD Codes: J20.9 - Acute bronchitis SNOMED: 83219287 (5) Shortness of breath ICD Codes: R06.02 - Shortness of breath SNOMED: 539760759 (6) Hypertension ICD Codes: I10 - Essential (primary) hypertension SNOMED: 26863197 (7) COPD (chronic obstructive pulmonary disease) ICD Codes: J44.9 - Chronic obstructive pulmonary disease, unspecified SNOMED: 68084723, 5405991 Status: stable, progressing Assessment/Plan: stable cont lovenox Per gi ok to anticoagulate PPI rx follow up stool ob pain meds advanced cont resp rx dc planning with close outpt follow up if labs ok Subjective ROS Limited/Unobtainable: No Constitutional: Reports: weakness HEENT: Reports: no symptoms Cardiovascular: Reports: no symptoms Respiratory: Reports: no symptoms Gastrointestinal/Abdominal: Reports: blood in stool Genitourinary: Reports: no symptoms Neurologic/Psychiatric: Reports: no symptoms Endocrine: Reports: no symptoms Hematologic/Lymphatic: Reports: anemia Allergies: Coded Allergies: AMOXICILLIN (Verified Allergy, Mild, 03/04/13) PENICILLINS (Verified Allergy, Mild, Hives/DIFFICULTY BREATHING, 10/29/17) All Systems: reviewed and negative except above Subjective pain better controlled. no fever or chills. no bleeding. remains on lovenox. stool ob + but no overt signs of bleeding. no melena or brbpr. venous duplex- no dvt Objective Last 24 Hour Vital Signs Date Time Temp Pulse Resp B/P (MAP) Pulse Ox O2 Delivery O2 Flow Rate FiO2 02/01/19 04:00 96.9 99 18 158/91 (113) 96 02/01/19 04:00 98 02/01/19 00:00 90 02/01/19 00:00 97.5 96 19 156/86 (109) 95 01/31/19 23:09 91 18 98 Room Air 21 01/31/19 23:09 89 18 98 Room Air 21 01/31/19 21:00 Room Air 01/31/19 20:00 105 01/31/19 20:00 96.9 104 21 154/94 (114) 98 01/31/19 17:47 101 162/83 01/31/19 16:00 106 01/31/19 16:00 97.9 101 20 162/83 (109) 95 01/31/19 12:00 97.3 98 19 160/91 (114) 93 01/31/19 12:00 113 01/31/19 09:21 98 18 98 Room Air 21 01/31/19 09:21 99 20 99 Room Air 21 01/31/19 09:19 93 18 98 Room Air 21 01/31/19 09:19 94 18 98 Room Air 21 01/31/19 09:11 106 150/90 01/31/19 09:00 Room Air 01/31/19 08:00 106 01/31/19 08:00 98.2 106 19 150/90 (110) 95 Intake and Output 01/31/19 02/01/19 18:59 06:59 Intake Total 570 ml Balance 570 ml Intake Oral 570 ml # Voids 3 # Bowel Movements 2 Laboratory Tests 02/01/19 05:21: White Blood Count [Pending], Red Blood Count [Pending], Hemoglobin [Pending], Hematocrit [Pending], Mean Corpuscular Volume [Pending], Mean Corpuscular Hemoglobin [Pending], Mean Corpuscular Hemoglobin Concent [Pending], Red Cell Distribution Width [Pending], Platelet Count [Pending], Mean Platelet Volume [ Pending], Neutrophils (%) (Auto) [Pending], Lymphocytes (%) (Auto) [Pending], Monocytes (%) (Auto) [Pending], Eosinophils (%) (Auto) [Pending], Basophils (%) (Auto) [Pending], Sodium Level [Pending], Potassium Level [Pending], Chloride Level [Pending], Carbon Dioxide Level [Pending], Blood Urea Nitrogen [Pending], Creatinine [Pending], Estimat Glomerular Filtration Rate [Pending], Glucose Level [Pending], Calcium Level [Pending], Total Bilirubin [Pending], Aspartate Amino Transf (AST/SGOT) [Pending], Alanine Aminotransferase (ALT/SGPT) [Pending] , Alkaline Phosphatase [Pending], Total Protein [Pending], Albumin [Pending], Globulin [Pending] Height (Feet): 5 Height (Inches): 1.00 Weight (Pounds): 261 Objective General Appearance: WD/WN, alert Neck: supple Cardiovascular: regular rhythm Respiratory/Chest: expiratory wheezing Abdomen: normal bowel sounds, non tender, soft, no organomegaly Edema: no edema noted Arm (L), no edema noted Arm (R), no edema noted Leg (L), no edema noted Leg (R), no edema noted Pedal (L), no edema noted Pedal (R), no edema noted Generalized Amadeo Castle MD Feb 01, 2019 07:22
--- NOTE | 2019-02-01 07:30 | NUR ---
NURSE NOTES: Nurse report given by BYRON Denny. Patient's awake and sitting in chair, AO x 3, complains of L knee pain 6/10, no s/s of distress or SOB. Bed low and locked, call light within reach, side rails x2. IV is saline locked, patent and asymptomatic. Informed Dr. Castle regarding patient's OB stool result is positive and her high blood sugar. No new orders at this time. Will continue to monitor.
[2019-02-01 07:38] LABS: BASOPHILS % (AUTO) 0.3 % (0.0-2.0); EOSINOPHILS % (AUTO) 0.1 % (0.0-3.0); HEMATOCRIT 27.7 % (37.0-47.0); HEMOGLOBIN 9.4 G/DL (12.0-16.0); LYMPHOCYTES % (AUTO) 11.9 % (20.0-45.0); MEAN CORPUSCULAR VOLUME 89 FL (80-99); MONOCYTES % (AUTO) 6.8 % (1.0-10.0); NEUTROPHILS % (AUTO) 80.9 % (45.0-75.0); PLATELET COUNT 653 K/UL (150-450); RED BLOOD COUNT 3.11 M/UL (4.20-5.40); RED CELL DISTRIBUTION WIDTH 18.7 % (11.6-14.8); WHITE BLOOD COUNT 15.5 K/UL (4.8-10.8)
[2019-02-01 07:49] LABS: ALANINE AMINOTRANSFERASE 17 U/L (12-78); ALBUMIN 3.3 G/DL (3.4-5.0); ALBUMIN/GLOBULIN RATIO 0.8 (1.0-2.7); ALKALINE PHOSPHATASE 69 U/L (46-116); ANION GAP 12 mmol/L (5-15); ASPARTATE AMINO TRANSFERASE 20 U/L (15-37); BILIRUBIN,TOTAL 0.6 MG/DL (0.2-1.0); BLOOD UREA NITROGEN 30 mg/dL (7-18); CARBON DIOXIDE 28 MMOL/L (21-32); CHLORIDE 99 MMOL/L (98-107); SODIUM 139 MMOL/L (136-145)
[2019-02-01 08:00] VITALS: BP 167/85
[2019-02-01] MEDS: Sorbitol Solution UD 30ml ORAL SCH ×2 (08:52→09:00)
[2019-02-01] MEDS: dilTIAZem HCl CD 180mg cap ORAL SCH ×2 (08:52→09:00)
[2019-02-01] MEDS: Solu-MEDROL 40mg Inj IVP SCH ×2 (08:52→09:00)
[2019-02-01] MEDS: Enoxaparin 40mg Inj SUBQ SCH ×2 (08:54→09:00)
--- NOTE | 2019-02-01 09:10 | NUR ---
NURSE NOTES: Patient refused all her mornings medications, stated that she is going home soon so she doesn't want any medications. However, there is no order for her to be discharge anytime yet until Dr. Castle discuss with her GI physician. This has been happening since yesterday that the patient stated she wants to leave. Discuss and educate patient the risk of refusing medications, especially her blood pressure medications (BP 107/91). Will contact Dr. Castle and make him aware.
[2019-02-01] MEDS: Wixela 100/50 Inhaler - 60 dose INH SCH (09:37)
--- NOTE | 2019-02-01 09:53 | NUR ---
CASE MANAGEMENT:REVIEW 02/01/19 SI: GIB. COPD. ACUTE BRONCHITIS 96.9 100 19 167/85 97% ON RA WBC+15.5 K-3.0 GLUCOSE+226 IS: IV SOLUMEDROL QD IV ROCEPHIN Q24 LOVENOX SQ Q12 IV VENOFER QHS SORBITOL PO QD SPIRIVA INH QD CARDIZEM PO BID ADVAIR INH BID IV DILAUDID Q4HRS PRN : TELEMETRY STATUS DCP: PATIENT IS FROM HOME
--- NOTE | 2019-02-01 09:55 | NUR ---
NURSE NOTES: Left message again to Dr. Castle regarding patient's situation that she wants to go home, refused all her meds regardless patient educations given by nurse. Contacted patient's daughter regarding about the situation, daughter stated that she spoke with Dr. Castle and she might take the patient home and if anything happen and she will take her mother back to the emergency, yet she does not know about patient refused all her medications so nurse transferred the phone call for the daughter to speak with the patient and patient still refused all the care. Awaiting for response from Dr. Castle.
[2019-02-01 12:00] VITALS: BP 142/84
[2019-02-01] MEDS ORDERED: ELIQUIS2.5 MG PO (12:56)
[2019-02-01] MEDS ORDERED: FERROUS SULFAT325 MG ORAL (12:57)
[2019-02-01] MEDS ORDERED: SPIRONOLACTONE25 MG ORAL (12:57)
--- NOTE | 2019-02-01 14:00 | NUR ---
NURSE NOTES: Patient's discharged per Dr. Ferris's order. Patient's in stable condition, no s/s of SOB or distress, AO x3. Patient's discharge instruction and belonging list went over with patient and signed by patient and nurse at bedside. Informed family member and patient that patient has new prescription prescribed by Dr. Ferris to be picked up at [facility]. monitoring and evaluation advisor and IV are removed, ID is discarded properly. Patient was wheeled down to the private vehicle to go home with ADMINISTRATIVE SUPPORT SPECIALIST assistance. Patient is off the floor at 1400. Charge nurse and threat monitoring analyst aware.
--- NOTE | 2019-02-02 02:30 | Progress Note ---
DATE: 02/01/2019 CARDIOLOGY PROGRESS NOTE SUBJECTIVE: Less congestion. No shortness of breath. No leg swelling. Pain in her knee. OBJECTIVE: VITAL SIGNS: Blood pressure 142/84, pulse 99, and respirations 20. LUNGS: Clear. CARDIAC: Regular. Normal S1, S2 with a fourth heart sound. ABDOMEN: Soft. EXTREMITIES: Trace edema. LABORATORY DATA: Cultures are negative. White count 15, hemoglobin 9.4. Potassium 3.0, glucose 226. Albumin 3.3. IMPRESSION: 1. Chronic obstructive pulmonary disease exacerbation. 2. Paroxysmal bronchospasm. 3. Hypokalemia. 4. Steroid exacerbation of diabetes mellitus. 5. Paroxysmal bronchospasm. 6. Acute on chronic diastolic congestive heart failure. 7. Mild to moderate protein-calorie malnutrition. 8. Status post left total knee replacement. PLAN: 1. Taper to oral steroids. 2. Discontinue antimicrobials. 3. Maintenance diuretic therapy and antihypertensives. 4. Potassium replacement with potassium-sparing diuretic. 5. Outpatient followup arranged. 6. Discuss medication regimen and outpatient plan of care in detail with the patient's daughter to include physical therapy. Dov Ferris M.D. DR: KEVIN JOB#: [id number] CC:
--- NOTE | 2019-02-02 10:01 | Discharge Summary ---
Discharge Summary Discharge Summary _ DATE OF ADMISSION: 01/27/2019 DATE OF DISCHARGE: 02/01/2019 DISCHARGED BY: Dr. Castle REASON FOR ADMISSION: 78 years old female with past medical history of hypertensive heart disease, asthma, obesity, degenerative arthritis, recently underwent a left total knee arthroplasty and had a difficult postoperative course, complicated by some bleeding , requiring blood transfusion. Patient was discharged home and then developed worsening shortness of breath and wheezing. Patient usually using inhalers at home , but at [facility] time was failed to improve with inhalers and therefore presented to emergency department for further evaluation . After initial evaluation patient was diagnosed with asthma /COPD exacerbation and admitted for further management. CONSULTANTS: pipeline dispatcher Dr. Ferris GI specialist Dr. Rayo [facility]SE: Patient admitted to monitored floor. Patient started on intravenous steroids. Supplemental oxygen provided as needed to keep pulse oximetry above 92%. Bronchodilator treatment [id number] and as needed via hand held nebulizing therapy provided. Patient started on empiric antibiotic. Blood culture was negative. Nasal swab for influenza was negative. Chest x-ray revealed mild interstitial edema with a borderline cardiomegaly. Steroids were slowly tapered and changed to oral upon discharge. Advair continued. Antitussive provided as needed. Venous duplex bilateral lower extremity revealed no evidence of acute DVT. DVT prophylaxis provided. Patient was at higher risk for DVT given recent surgery. Aerophysics Engineer followed. Patient was on hall monitor. Potassium was replaced. Volume status and cardiorenal parameters were closely monitored. Anti-failure regimen was adjusted accordingly. Blood pressure was managed with Diltiazem . Antihypertensive further titrated as needed. Blood sugar initially elevated, [id number], likely due to steroids. Blood sugar was managed with sliding scale of insulin. Steroids tapered. Blood sugar improved. Diuresis was provided based on clinical parameters. Patient had one episode of bright red blood per rectum , likely hemorrhoids. Patient also had a history of chronic patient. Bowel regimen optimized. Patient was watched closely , no recurrent rectal bleeding. Stool for OB was positive. No plans for GI procedure , given reactive airway disease and recent total knee replacement. Patient was advised to see GI specialist as outpatient for colonoscopy at later date. GI specialist cleared patient to continue with anticoagulation. Hemoglobin and hematocrit were closely monitored with goal to keep hemoglobin above 7. Prior to discharge hemoglobin 9.4 , hematocrit 27.7. Patient was on IV Venofer . Patient clinically stabilized. Steroids changed to oral to complete the course a juan. Medication regimen and outpatient plan of care were discussed in detail with the patient daughter , including physical therapy. Patient clinically stabilized and ready for discharge home. FINAL DIAGNOSES: COPD exacerbation Acute bronchospasm-resolved Acute on chronic diastolic congestive heart failure Hypertensive heart disease with labile blood pressure Status post recent left total knee replacement Anemia of iron deficiency and chronic disease GI bleeding/ Episode of rectal bleeding Hypokalemia-replaced Type 2 diabetes mellitus with hyperglycemia due to steroids-improved DISCHARGE MEDICATIONS: See Medication Reconciliation list. DISCHARGE INSTRUCTIONS: Patient was discharged home. Follow up with primary care provider in one week. I have been assigned to dictate discharge summary for this account. I was not involved in the patient's management. Peri Rose NP Feb 02, 2019 10:01
== END 2019-02-01 14:05 | disposition home or self-care (01) | DRG 190 ==
LOC: EDBEDREQ 15:47 → EMR 16:11 → 2E 16:25 → EDBEDREQ 16:28 → 2E 18:42
DX: J44.1 Chronic obstructive pulmonary disease with (acute) exacerbation (principal); I50.33 Acute on chronic diastolic (congestive) heart failure; E44.0 Moderate protein-calorie malnutrition; K92.2 Gastrointestinal hemorrhage, unspecified; Z68.42 Body mass index [BMI] 45.0-49.9, adult; J98.01 Acute bronchospasm; Z88.1 Allergy status to other antibiotic agents; Z88.0 Allergy status to penicillin; Z96.653 Presence of artificial knee joint, bilateral; D50.9 Iron deficiency anemia, unspecified; I11.0 Hypertensive heart disease with heart failure; E87.6 Hypokalemia; E11.65 Type 2 diabetes mellitus with hyperglycemia; T38.0X5A Adverse effect of glucocorticoids and synthetic analogues, initial encounter; M19.90 Unspecified osteoarthritis, unspecified site; E66.9 Obesity, unspecified
CPT/HCPCS: 36415; 71045; 80053; 82270; 82550; 82553; 82728; 82962; 83540; 83550; 83605; 83735; 83880; 84443; 84484; 85007; 85025; 86710; 87040; 87081; 93005; 93970; 94640; 94664; 96361; 96374; 99285; J1815; J2405; J7030; J7620; J8499